=== PATIENT | male | born 1970 | race Caucasian/White ===

== ENCOUNTER 2017-01-26 12:36 | Inpatient (IN) ==
[2017-01-26] MEDS ORDERED: ACETAMINOPHEN 325 MG TABLET PO ONE (13:28)
[2017-01-26] MEDS ORDERED: 0.9 % SODIUM CHLORIDE 1,000 ML IV ONE ×4 (13:29→23:55)
--- NOTE | 2017-01-26 13:35 | Emergency Department Note ---
Skin/Abscess/FB HPI - General Chief complaint: Skin/Abscess/Foreign Body Stated complaint: infection L foot, L flank pain Time Seen by Provider: 01/26/17 13:28 Source: patient Mode of arrival: wheelchair Limitations: no limitations - History of Present Illness HPI Narrative: 38-year-old male presents with infection to left foot. He is diabetic. He states he has been dealing with an infection in this left foot for a long time and sees Dr. Khan for this. He states he was doing well but last night he tripped and fell and has started to have a lot more pain swelling and fever. He also feels like he tweaked his lower back. He also has been out of his medications for 10 days and feels as though his blood sugar is high. He feels dehydrated. He takes Lantus at night, metformin, amlodipine. He denies urinary frequency or urgency. He denies hematuria. - Related Data Home Medications Medication Instructions Recorded Confirmed amlodipine 5 mg-benazepril 20 mg 1 cap PO QDAY 08/18/16 11/02/16 capsule empagliflozin 10 mg tablet 10 mg PO QDAY 08/18/16 11/02/16 metformin 1,000 mg tablet 1,000 mg PO BID 08/18/16 11/02/16 amitriptyline 100 mg tablet 100 mg PO QHS 10/17/16 11/02/16 benazepril 20 mg tablet 20 mg PO QDAY 10/17/16 11/02/16 insulin glargine 100 unit/mL (3 62 unit SUB-Q QHS ml 10/17/16 11/02/16 mL) subcutaneous pen omeprazole magnesium 20 mg 20 mg PO QDAY tab 10/17/16 11/02/16 tablet,delayed release Previous Rx's Medication Instructions Recorded insulin glargine 100 unit/mL (3 62 unit SUB-Q QHS #9 ml 08/11/16 mL) subcutaneous pen cholecalciferol (vitamin D3) 2,000 2,000 unit PO QDAY #30 cap 10/18/16 unit capsule ferrous sulfate 325 mg (65 mg 325 mg PO TID #90 tab 10/18/16 iron) tablet citalopram 40 mg tablet 40 mg PO QDAY #30 tab 11/02/16 melatonin 5 mg tablet 5 mg PO HS PRN #30 tab 11/02/16 hydroxyzine pamoate 50 mg capsule 50 mg PO .nightly PRN #30 cap 11/14/16 Allergies Allergy/AdvReac Type Severity Reaction Status Date / Time No Known Drug Allergies Allergy Verified 11/02/16 10:54 Review of Systems All systems ED: reviewed and negative except as stated. 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 No drainage. Swelling of the foot. Redness. Very tender proximal to the great toe. Unable to move toes. KNee and hip are normal. - General Limitations: no limitations General appearance: alert, in no apparent distress - Head Head exam: atraumatic - Eye Eye exam: Present: normal appearance. Absent: conjunctival injection - ENT ENT exam: mucous membranes dry - Neck Neck exam: Present: normal inspection, full ROM. Absent: tenderness, lymphadenopathy - Chest Chest inspection: Present: normal inspection, symmetric chest wall rise - Respiratory Respiratory exam: Present: normal lung sounds bilaterally - Cardiovascular Cardiovascular exam: Present: tachycardia, normal heart sounds - Abdominal Exam Abdominal exam: Present: soft, normal bowel sounds. Absent: tenderness - Back Exam Back exam: Present: tenderness, muscle spasm, paraspinal tenderness (L5-S1), sciatic notch tenderness (R), sciatic notch tenderness (L). Absent: CVA tenderness (R), CVA tenderness (L) - Neurological Exam Neurological exam: Present: alert, oriented X3, CN II-XII intact - Psychiatric Psychiatric exam: Present: normal affect, normal mood - Skin Skin exam: Present: warm, dry Course Course Narrative: 324 BG on arrival ABGs showed DKA. He was started on DKA protocol. His vitals were always stable. He only complained of pain in the foot and dry mouth. He was admitted to the ICU by Rafa and Dr. Fletcher will be seeing him for his foot. These Drs were both consulted. Dr. Kebede was also consulted and agreed with plan Vital Signs Temperature 99.9 F H 01/26/17 12:37 Pulse Rate 105 H 01/26/17 12:37 Respiratory Rate 16 01/26/17 12:37 Blood Pressure 152/92 01/26/17 12:37 Pulse Oximetry (%) 98 01/26/17 12:37 Temperature 98.6 F 01/26/17 15:04 Pulse Rate 98 H 01/26/17 15:04 Respiratory Rate 16 01/26/17 12:37 Blood Pressure 153/93 01/26/17 15:01 Pulse Oximetry (%) 96 01/26/17 15:04 Skin/Abscess/Foreign Body - Lab Data Lab results reviewed: Yes I reviewed the patient's lab results. Result diagrams: 01/26/17 13:39 01/26/17 13:39 Lab Results 01/26/17 01/26/17 01/26/17 Range/Units 13:39 13:39 13:39 WBC 14.3 H (4.5-11.0) K/mcL RBC 4.85 (4.50-5.90) M/mcL Hgb 14.0 (13.5-16.5) g/dL Hct 41.8 (41.0-55.0) % MCV 86.3 (80.0-100.0) fL MCH 28.9 (26.0-34.0) pg MCHC 33.5 (31.0-36.0) g/dL RDW 15.9 H (11.5-14.5) % Plt Count 209 (140-440) K/mcL MPV 8.7 (7.4-10.4) fL Total Counted 100 Seg Neutrophils % 86 H (38-78) % Band Neutrophils % Not Reportable Lymphocytes % 5 L (15-49) % Monocytes % (Manual) 9 (1-12) % Platelet Estimate Normal (NORMAL) RBC Morphology Normal (NORMAL) VBG Lactic Acid 0.9 (0.5-2.2) mmol/L Sodium 128 L (133-145) mmol/L Potassium 5.3 H (3.3-5.1) mmol/L Chloride 89 L (96-108) mmol/L Carbon Dioxide 12 L (22-30) mmol/L Bicarbonate Anion Gap 27.0 H (8-16) BUN 22 H (6-20) mg/dl Creatinine 1.5 H (0.7-1.2) mg/dl GFR Calculation 54 Glucose 343 H (70-105) mg/dL Calcium 9.1 (8.6-10.4) mg/dl Total Bilirubin 0.4 (0.0-1.0) mg/dL AST 14 (0-37) U/l ALT 22 (0-40) U/l Alkaline Phosphatase 70 (39-117) U/L Total Protein 8.4 (5.9-8.4) gm/dL Albumin 3.9 (3.2-5.2) gm/dL Globulin 4.5 H (2.2-3.7) gm/dL Albumin/Globulin Ratio 0.9 L (1.0-2.3) Beta-Hydroxybutyrate (< 0.27) mmol/L Procalcitonin (<0.10) ng/mL Urine Color Urine Appearance Urine pH (5.0-9.0) Ur Specific Freeman (1.000-1.035) Urine Protein (NEG) mg/dL Urine Glucose (UA) (NEG) mg/dL Urine Ketones (NEG) mg/dL Urine Occult Blood (<0.03) mg/dL Urine Nitrate (NEG) Urine Bilirubin (NEG) mg/dL Urine Urobilinogen (NEG) mg/dL Ur Leukocyte Esterase (NEG) /uL Urine RBC (0-1) /hpf Urine WBC (0-4) /hpf Ur Squamous Epith Cells (0-4) /hpf Urine Bacteria (0) /hpf Urine Mucus (0) /hpf Ur Culture Indicated? 01/26/17 01/26/17 01/26/17 Range/Units 13:39 13:39 13:39 WBC (4.5-11.0) K/mcL RBC (4.50-5.90) M/mcL Hgb (13.5-16.5) g/dL Hct (41.0-55.0) % MCV (80.0-100.0) fL MCH (26.0-34.0) pg MCHC (31.0-36.0) g/dL RDW (11.5-14.5) % Plt Count (140-440) K/mcL MPV (7.4-10.4) fL Total Counted Seg Neutrophils % (38-78) % Band Neutrophils % Lymphocytes % (15-49) % Monocytes % (Manual) (1-12) % Platelet Estimate (NORMAL) RBC Morphology (NORMAL) VBG Lactic Acid (0.5-2.2) mmol/L Sodium (133-145) mmol/L Potassium (3.3-5.1) mmol/L Chloride (96-108) mmol/L Carbon Dioxide (22-30) mmol/L Bicarbonate TNP Anion Gap (8-16) BUN (6-20) mg/dl Creatinine (0.7-1.2) mg/dl GFR Calculation Glucose (70-105) mg/dL Calcium (8.6-10.4) mg/dl Total Bilirubin (0.0-1.0) mg/dL AST (0-37) U/l ALT (0-40) U/l Alkaline Phosphatase (39-117) U/L Total Protein (5.9-8.4) gm/dL Albumin (3.2-5.2) gm/dL Globulin (2.2-3.7) gm/dL Albumin/Globulin Ratio (1.0-2.3) Beta-Hydroxybutyrate 7.11 H (< 0.27) mmol/L Procalcitonin 0.79 (<0.10) ng/mL Urine Color Urine Appearance Urine pH (5.0-9.0) Ur Specific Freeman (1.000-1.035) Urine Protein (NEG) mg/dL Urine Glucose (UA) (NEG) mg/dL Urine Ketones (NEG) mg/dL Urine Occult Blood (<0.03) mg/dL Urine Nitrate (NEG) Urine Bilirubin (NEG) mg/dL Urine Urobilinogen (NEG) mg/dL Ur Leukocyte Esterase (NEG) /uL Urine RBC (0-1) /hpf Urine WBC (0-4) /hpf Ur Squamous Epith Cells (0-4) /hpf Urine Bacteria (0) /hpf Urine Mucus (0) /hpf Ur Culture Indicated? 01/26/17 Range/Units 15:03 WBC (4.5-11.0) K/mcL RBC (4.50-5.90) M/mcL Hgb (13.5-16.5) g/dL Hct (41.0-55.0) % MCV (80.0-100.0) fL MCH (26.0-34.0) pg MCHC (31.0-36.0) g/dL RDW (11.5-14.5) % Plt Count (140-440) K/mcL MPV (7.4-10.4) fL Total Counted Seg Neutrophils % (38-78) % Band Neutrophils % Lymphocytes % (15-49) % Monocytes % (Manual) (1-12) % Platelet Estimate (NORMAL) RBC Morphology (NORMAL) VBG Lactic Acid (0.5-2.2) mmol/L Sodium (133-145) mmol/L Potassium (3.3-5.1) mmol/L Chloride (96-108) mmol/L Carbon Dioxide (22-30) mmol/L Bicarbonate Anion Gap (8-16) BUN (6-20) mg/dl Creatinine (0.7-1.2) mg/dl GFR Calculation Glucose (70-105) mg/dL Calcium (8.6-10.4) mg/dl Total Bilirubin (0.0-1.0) mg/dL AST (0-37) U/l ALT (0-40) U/l Alkaline Phosphatase (39-117) U/L Total Protein (5.9-8.4) gm/dL Albumin (3.2-5.2) gm/dL Globulin (2.2-3.7) gm/dL Albumin/Globulin Ratio (1.0-2.3) Beta-Hydroxybutyrate (< 0.27) mmol/L Procalcitonin (<0.10) ng/mL Urine Color Yellow Urine Appearance Hazy Urine pH 5.0 (5.0-9.0) Ur Specific Freeman 1.026 (1.000-1.035) Urine Protein 100 A (NEG) mg/dL Urine Glucose (UA) >=500 A (NEG) mg/dL Urine Ketones 80 A (NEG) mg/dL Urine Occult Blood 0.2 A (<0.03) mg/dL Urine Nitrate Neg (NEG) Urine Bilirubin Neg (NEG) mg/dL Urine Urobilinogen Neg (NEG) mg/dL Ur Leukocyte Esterase Neg (NEG) /uL Urine RBC 1 (0-1) /hpf Urine WBC 2 (0-4) /hpf Ur Squamous Epith Cells < 1 (0-4) /hpf Urine Bacteria 0 (0) /hpf Urine Mucus Few (0) /hpf Ur Culture Indicated? No - Radiology Data Radiology results reviewed: Yes I reviewed the patient's radiology results. possible osteomyelitis 2nd metatarsal Disposition Clinical Impression: DKA (diabetic ketoacidoses) Disposition: Xfer As Inpt ([facility]) Condition: Fair Referrals: Viktor Cox DO [Primary Care Provider] -
[2017-01-26] MEDS: HYDROmorphone 2 MG/ML SYRINGE IV PRN ×4 (13:49→21:20)
[2017-01-26 14:18] LABS: Mean Cell Volume 86.3 fL (80.0-100.0); Mean Corpuscular HGB Conc 33.5 g/dL (31.0-36.0); Mean Corpuscular Hemoglobin 28.9 pg (26.0-34.0); Platelet Count 209 K/mcL (140-440); RBC 4.85 M/mcL (4.50-5.90); Red Cell Distribution Width 15.9 % (11.5-14.5)
--- NOTE | 2017-01-26 14:29 | XRay Report ---
CLINICAL INFORMATION: Diabetic. Nonhealing ulcer in the left foot. Ulcer apparently is near the base of the 1st digit TECHNIQUE: AP, oblique, lateral left foot COMPARISON: Previous examination dated 07/15/2013 FINDINGS: No soft tissue gas bubbles. No radiopaque foreign body. Abnormality of the distal left 2nd metatarsal. There is bone destruction which is a new finding since previous examination. Osteomyelitis is possible. No other focal areas of cortical destruction. No other focal abnormality. IMPRESSION: 1. Abnormality of the distal left 2nd metatarsal 2. Cortical destruction consistent with osteomyelitis. Interpreted and Authenticated by: Viktor Alarcon 01/26/17
[2017-01-26 14:46] LABS: ALT/SGPT 22 U/l (0-40); Albumin 3.9 gm/dL (3.2-5.2); Albumin/Globulin Ratio 0.9 (1.0-2.3); Alkaline Phosphatase 70 U/L (39-117); Blood Urea Nitrogen 22 mg/dl (6-20)
[2017-01-26 14:53] LABS: Lymphocytes % 5 % (15-49); Monocytes % (Manual) 9 % (1-12); Platelet Estimate NORMAL (NORMAL); RBC Morphology NORMAL (NORMAL); Segmented Neutrophils % 86 % (38-78)
[2017-01-26] MEDS ORDERED: VANCOMYCIN 1,000 MG in 0.9 % SODIUM CHLORIDE 250 ML IV ONE (15:12)
[2017-01-26] MEDS ORDERED: PIPERACILLIN SODIUM/TAZOBACTAM 3.375 GM in DEXTROSE 5% IN WATER 50 ML IV ONE (15:18)
[2017-01-26] MEDS ORDERED: VANCOMYCIN 1,500 MG in 0.9 % SODIUM CHLORIDE 500 ML IV ONE (15:19)
[2017-01-26 15:27] LABS: Appearance,Urine HAZY; Bacteria,Urine 0 /hpf (0); Bilirubin,Urine NEG (NEG); Color,Urine YELLOW; Glucose,Urine (UA) >=500 mg/dL (NEG); Leukocyte Esterase,Urine NEG /uL (NEG); Mucus,Urine FEW /hpf (0); Nitrate,Urine NEG (NEG); Protein,Urine 100 mg/dL (NEG); Specific Gravity,Urine 1.026 (1.000-1.035); Urine Blood 0.2 mg/dL (<0.03); Urine RBC 1 /hpf (0-1); Urine Squamous Epithelial Cell < 1 /hpf (0-4); Urine WBC 2 /hpf (0-4); Urobilinogen,Urine NEG (NEG)
[2017-01-26] MEDS ORDERED: PIPERACILLIN SODIUM/TAZOBACTAM 3.375 GM VIAL IV ONE (15:31)
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
[2017-01-26] MEDS ORDERED: INSULIN REGULAR, HUMAN 1 UNIT/0.01 ML UNIT IV ONE (15:55)
--- NOTE | 2017-01-26 15:56 | XRay Report ---
CLINICAL INFORMATION: Leukocytosis TECHNIQUE: AP portable semiupright chest x-ray COMPARISON: None. FINDINGS: Lungs are negative. No parenchymal infiltrate or mass Heart size is within normal limits. No pulmonary edema. No pulmonary congestion. No pleural fluid. Kandis and mediastinum are negative. IMPRESSION: Negative AP portable chest x-ray Interpreted and Authenticated by: Viktor Alarcon 01/26/17
[2017-01-26] MEDS ORDERED: INSULIN REGULAR, HUMAN 50 UNIT in 0.9 % SODIUM CHLORIDE 99.5 ML IV SCH (16:00)
[2017-01-26 16:21] LABS: Beta Hydroxybutyrate 7.11 mmol/L (< 0.27)
--- NOTE | 2017-01-26 17:44 | Internal Med History&Physical ---
Medical - H&P: HPI Patient information: Note initiated : 01/26/17 at 5:40 pm Service Date, if different from initiated Date: [] Patient: Gregory Garcia 46 y/o M admitted on 01/26/17 for infection L foot, L flank pain. Chief Complaint: [] History of present illness: Mr. Garcia is a 46 year old male with h/o DM and other medical issues, chr right toe wound, presented to the ER with complaints of pain in the right foot for 2 days. The patient notes he has had a chr wound from diabetes on the right toe, this has been a non healing wound and he follows with Dr Pan madrigal tungsten tender who has been working with him. The patient fell and injured his right side body and injured the right toe on january 24. After this the patient noted increased redness and swelling of the right toe, the patient notes that the redness start ed to spread, and the pain worsened to a point where he could not lay foot on the ground. Pain throbbing in nature, worse with activity better with rest, Non radiating. he therefore presented to the ER . In the ER the patient was noted to have elevated wbc, high k, low sodium elevate glucose > 300, high gap, low bicarb. Patient had elevaetd betahydroxybutyrate, elevated anion gap, and ph of 7.2. He was admitted to the hospital with diagnosis of acute DKA and Acute osteomyelitis. The patient notes that around 11 of january he has not taken any of his medications including insulin, as his insurance ran out. Review of systems: CONSTITUTIONAL: No weight loss,present fever and chills, HEENT: Eyes: No visual loss, blurred vision, double vision or yellow sclerae. Ears, Nose, Throat: No hearing loss, sneezing, congestion, runny nose or sore throat. SKIN: No rash or itching. CARDIOVASCULAR: No chest pain, chest pressure or chest discomfort. No palpitations or edema. RESPIRATORY: No shortness of breath, cough or sputum. GASTROINTESTINAL: No nausea, vomiting or diarrhea or constipation. No abdominal pain or blood in stools No Sil. left flank pain on movement due to trauma. GENITOURINARY: Denies Burning on urination. Blood in urine, or foul smelling urine NEUROLOGICAL: No headache, dizziness, syncope, paralysis, tremors, numbness or tingling in the extremities. No change in bowel or bladder control. MUSCULOSKELETAL: No muscle, back pain, joint pain or stiffness. HEMATOLOGIC: No bleeding or bruising. No enlarged nodes PSYCHIATRIC: No depression or anxiety. ENDOCRINOLOGIC: No reports of sweating, cold or heat intolerance. No polyuria or polydipsia. ALLERGIES: No hives, eczema or rhinitis. Skin: No rash, no jaundice, cyanosis or pallor. 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) History of tobacco use (Chronic) Sleep apnea (Chronic) Peripheral neuropathy (Chronic) Fatigue (Chronic) Arthritis (Chronic) Insomnia (Chronic) Hypertension, essential (Chronic) DMII (diabetes mellitus, type 2) (Chronic) Depression (Chronic) Daytime sleepiness (Chronic) Acid reflux (Chronic) Surgical history: Past Surgical History (Last Updated 08/18/16 @ 13:19 by Bailey Fuller) H/O oral surgery (Chronic ~1989) Pertinent family history: Family History Mother Primary cancer of bone marrow Hypertension, essential Grandfather Diabetes Medical - H&P: Meds Home Medications Medication Instructions Recorded Confirmed Type insulin glargine 100 unit/mL (3 62 unit SUB-Q QHS #9 ml 08/11/16 11/02/16 Rx mL) subcutaneous pen amlodipine 5 mg-benazepril 20 mg 1 cap PO QDAY 08/18/16 11/02/16 History capsule empagliflozin 10 mg tablet 10 mg PO QDAY 08/18/16 11/02/16 History metformin 1,000 mg tablet 1,000 mg PO BID 08/18/16 11/02/16 History amitriptyline 100 mg tablet 100 mg PO QHS 10/17/16 11/02/16 History benazepril 20 mg tablet 20 mg PO QDAY 10/17/16 11/02/16 History insulin glargine 100 unit/mL (3 62 unit SUB-Q QHS ml 10/17/16 11/02/16 History mL) subcutaneous pen omeprazole magnesium 20 mg 20 mg PO QDAY tab 10/17/16 11/02/16 History tablet,delayed release cholecalciferol (vitamin D3) 2,000 2,000 unit PO QDAY #30 cap 10/18/16 11/02/16 Rx unit capsule ferrous sulfate 325 mg (65 mg 325 mg PO TID #90 tab 10/18/16 11/02/16 Rx iron) tablet citalopram 40 mg tablet 40 mg PO QDAY #30 tab 11/02/16 11/02/16 Rx melatonin 5 mg tablet 5 mg PO HS PRN #30 tab 11/02/16 11/02/16 Rx hydroxyzine pamoate 50 mg capsule 50 mg PO .nightly PRN #30 cap 11/14/16 Rx Allergies Allergy/AdvReac Type Severity Reaction Status Date / Time No Known Drug Allergies Allergy Verified 11/02/16 10:54 Medical - H&P: Exam - Constitutional Vitals: Temp Pulse Resp BP Pulse Ox 98.6 F 98 H 16 153/93 96 01/26/17 16:35 01/26/17 16:35 01/26/17 16:35 01/26/17 16:35 01/26/17 16:35 Exam: GENERAL: The patient is a well-developed, well-nourished in no apparent distress. Is alert and oriented x3. body has some tatoos. VITAL SIGNS: Reviewed and as noted elsewhere. HEENT: Head is normocephalic and atraumatic. Extraocular muscles are intact. Pupils are equal, round, and reactive to light. Nares appeared normal. Mouth appears any without lesions. Mucous membranes are moist. NECK: Normal to inspection, Supple, No lymphadenopathy or thyromegaly. LUNGS: Air entry equal on both sides, no wheezing, crackles or rhonchi noted. No accessory muscles of respiration HEART: Regular rate and rhythm normal, S1 and S2 heard, no Gallop, S3 or Rub Noted, No Gross murmur heard. ABDOMEN: Soft, nontender, and nondistended. Positive bowel sounds. No hepatosplenomegaly was noted. EXTREMITIES: No cyanosis, clubbing, rash, lesions or edema. Right foot noted ulcer on the base of the 1st toe, ertyema extnding upto the ankle and mid foot on the plantar aspect. tender to touch, no obvious fluctuation NEUROLOGIC: Cranial nerves II through XII are grossly intact. Motor and Sensory System Grossly Intact PSYCHIATRIC: Normal affect, Normal Mood. Appropriate Behavior. SKIN: No jaundice, No rash noted. Medical - H&P: Reslt - Labs CBC & Chem 7: 01/26/17 13:39 01/26/17 13:39 - ABG Interpretation -: ABG interpreted by me Medical - H&P: A/P - Narrative A/P Narrative: A/P Acute diabetic ketoacidosis: Treat as per protocol,k IV bolus x 2 given in ER, IV insulin given, will start on insulin drip, target glucose around 200, IV saline at 200ml per hour, switch to D5NS if patient glucose drops. monitor bmp q 4 hrs, mg, phos q 4 hrs, vbg to check for resolution of DKA NPO for now. Acute osteomyelitis: Noted on X ray, appreciate podiatry input, will need mri, but will be done after patient is out of DKA, likely in AM. IV vancomycin and zosyn for now. DM: management with iv insulin for now Depression Resume citalopram diabetic Neuropathy: on amitriptyline , continue Hold bp meds for now Acute kidney injury: Craetr 1.5. IV flujids Hyponatremia: pseudohyponatremia, and some component of dehydration, should improve with correction of u nderlying factor. Hyperkalemia: K was 5.3, should self correct, will have to worry about hypokalemia once treatment institute. DVT hep sq Diet NPO Full code Medical - H&P: Qual - VTE Deep Vein Thrombosis/Pulmonary Embolism Present on Admission: No Social History - Social History marital status: single - Tobacco smoking status: Former smoker - Alcohol alcohol intake frequency: a few times a week - Substance use substance use type: marijuana, former substance user
[2017-01-26] MEDS ORDERED: NALOXONE HCL 0.4 MG/ML VIAL IV PRN (17:50)
[2017-01-26] MEDS ORDERED: VANCOMYCIN PER PHARMACY IV SCH (17:50)
[2017-01-26] MEDS ORDERED: DEXTROSE 50% 50 ML SYRINGE IV PRN (17:50)
[2017-01-26] MEDS ORDERED: ONDANSETRON 4 MG/2 ML VIAL IV PRN (17:50)
[2017-01-26] MEDS ORDERED: HYDROmorphone 2 MG/ML SYRINGE IV PRN (17:50)
[2017-01-26] MEDS ORDERED: IPRATROPIUM/ALBUTEROL 3 ML AMPUL.NEB NEB PRN (17:50)
[2017-01-26] MEDS: 0.9 % SODIUM CHLORIDE 1,000 ML IV SCH ×2 (17:59→23:05)
[2017-01-26] MEDS: INSULIN REGULAR, HUMAN 50 UNIT in 0.9 % SODIUM CHLORIDE 100 ML IV SCH (18:17)
[2017-01-26 18:34] LABS: ABG Methemoglobin 0.3 % (0.4-1.5); VBG HCO3 11.4 mmol/L (24.0-28.0); VBG Oxygen Saturation 85.2 % (40.0-70.0); VBG PH 7.21 U (7.32-7.42); VBG PO2 66 mmHg (25-40); VBG Total CO2 12.3 mmol/L (25.0-29.0)
[2017-01-26 18:57] LABS: ALT/SGPT 18 U/l (0-40); Albumin 3.1 gm/dL (3.2-5.2); Albumin/Globulin Ratio 0.8 (1.0-2.3); Alkaline Phosphatase 56 U/L (39-117); Bilirubin,Direct < 0.2 mg/dL (0.0-0.3); Blood Urea Nitrogen 20 mg/dl (6-20); Gamma Glutamyl Transpeptidase 42 U/L (8-61); Magnesium 2.3 mg/dL (1.6-2.5); Uric Acid 9.6 mg/dL (2.5-8.0)
[2017-01-26] MEDS ORDERED: POTASSIUM PHOSPHATE 20 MEQ in DEXTROSE 5% IN WATER 250 ML IV ONE (19:01)
[2017-01-26] MEDS ORDERED: POTASSIUM PHOSPHATE 66 MEQ/15 ML VIAL IV ONE (19:38)
[2017-01-26] MEDS: FAMOTIDINE/PF 20 MG/2 ML VIAL IV SCH (21:01)
[2017-01-26] MEDS: HEPARIN 5,000 UNIT/ML VIAL SQ SCH (21:01)
[2017-01-26] MEDS: AMITRIPTYLINE 25 MG TABLET PO SCH (21:01)
[2017-01-26] MEDS: 0.9 % SODIUM CHLORIDE 10 ML SYRINGE IV SCH (21:03)
[2017-01-26] MEDS: PIPERACILLIN SODIUM/TAZOBACTAM 3.375 GM in DEXTROSE 5% IN WATER 50 ML IV SCH (22:01)
[2017-01-26 22:15] LABS: ABG Methemoglobin 0.3 % (0.4-1.5); VBG HCO3 14.6 mmol/L (24.0-28.0); VBG Oxygen Saturation 72.6 % (40.0-70.0); VBG PCO2 39.7 mmHg (41.0-51.0); VBG PH 7.18 U (7.32-7.42); VBG PO2 45 mmHg (25-40); VBG Total CO2 15.8 mmol/L (25.0-29.0)
[2017-01-26 22:20] LABS: Appearance,Urine HAZY; Bacteria,Urine 0 /hpf (0); Bilirubin,Urine NEG (NEG); Color,Urine STRAW; Glucose,Urine (UA) >=500 mg/dL (NEG); Leukocyte Esterase,Urine NEG /uL (NEG); Mucus,Urine FEW /hpf (0); Nitrate,Urine NEG (NEG); Protein,Urine 100 mg/dL (NEG); Specific Gravity,Urine 1.025 (1.000-1.035); Urine Blood 0.03 mg/dL (<0.03); Urine Hyaline Cast 7 /lpf (0-2); Urine RBC 1 /hpf (0-1); Urine Squamous Epithelial Cell < 1 /hpf (0-4); Urine WBC 2 /hpf (0-4); Urobilinogen,Urine NEG (NEG)
[2017-01-26 23:53] LABS: ALT/SGPT 20 U/l (0-40); Albumin 3.5 gm/dL (3.2-5.2); Albumin/Globulin Ratio 0.9 (1.0-2.3); Alkaline Phosphatase 56 U/L (39-117); Bilirubin,Direct < 0.2 mg/dL (0.0-0.3); Blood Urea Nitrogen 17 mg/dl (6-20); Gamma Glutamyl Transpeptidase 47 U/L (8-61); Magnesium 2.3 mg/dL (1.6-2.5); Uric Acid 9.5 mg/dL (2.5-8.0)
[2017-01-26] MEDS ORDERED: 0.9 % SODIUM CHLORIDE 1,000 ML IV SCH ×2 (23:56→23:58)
[2017-01-27] MEDS ORDERED: 0.9 % SODIUM CHLORIDE 1,000 ML IV ONE ×3 (00:28→07:12)
[2017-01-27] MEDS: DEXTROSE 5%-1/2NS 1,000 ML IV SCH ×5 (00:29→21:19)
[2017-01-27 00:46] LABS: ABG Methemoglobin 0.3 % (0.4-1.5); VBG HCO3 13.6 mmol/L (24.0-28.0); VBG Oxygen Saturation 95.6 % (40.0-70.0); VBG PCO2 30.1 mmHg (41.0-51.0); VBG PH 7.27 U (7.32-7.42); VBG PO2 145 mmHg (25-40); VBG Total CO2 14.5 mmol/L (25.0-29.0)
[2017-01-27 01:10] LABS: Blood Urea Nitrogen 16 mg/dl (6-20); Magnesium 2.2 mg/dL (1.6-2.5)
[2017-01-27] MEDS: VANCOMYCIN 1,500 MG in 0.9 % SODIUM CHLORIDE 500 ML IV SCH ×2 (03:46→16:00)
[2017-01-27] MEDS: 0.9 % SODIUM CHLORIDE 10 ML SYRINGE IV SCH ×3 (05:29→20:42)
[2017-01-27] MEDS: PIPERACILLIN SODIUM/TAZOBACTAM 3.375 GM in DEXTROSE 5% IN WATER 50 ML IV SCH ×3 (05:52→22:01)
[2017-01-27 06:05] LABS: ABG Methemoglobin 0.3 % (0.4-1.5); VBG Base Excess -12.4 (-2.0-2.0); VBG HCO3 13.8 mmol/L (24.0-28.0); VBG Oxygen Saturation 77.5 % (40.0-70.0); VBG PCO2 32.8 mmHg (41.0-51.0); VBG PH 7.24 U (7.32-7.42); VBG PO2 46 mmHg (25-40); VBG Total CO2 14.8 mmol/L (25.0-29.0)
[2017-01-27 06:09] LABS: Basophils # (Auto) 0 K/mcL (0.0-0.3); Basophils % (Auto) 0 % (0.0-2.0); Eosinophils # (Auto) 0 K/mcL (0.0-0.7); Eosinophils % (Auto) 0.1 % (0.0-7.0); Granulocytes % (Auto) 89.5 % (38.0-78.0); Lymphocytes # (Auto) 0.8 K/mcL (1.5-4.8); Lymphocytes % (Auto) 6.2 % (15.5-49.0); Mean Cell Volume 86.4 fL (80.0-100.0); Mean Corpuscular HGB Conc 33.9 g/dL (31.0-36.0); Mean Corpuscular Hemoglobin 29.3 pg (26.0-34.0); Monocytes # (Auto) 0.5 K/mcL (0.1-0.9); Monocytes % (Auto) 4.2 % (1.0-12.0); Platelet Count 185 K/mcL (140-440); RBC 4.45 M/mcL (4.50-5.90); Red Cell Distribution Width 16.4 % (11.5-14.5)
[2017-01-27 06:42] LABS: Blood Urea Nitrogen 13 mg/dl (6-20); Magnesium 2.1 mg/dL (1.6-2.5)
[2017-01-27] MEDS ORDERED: POTASSIUM PHOSPHATE 40 MEQ in DEXTROSE 5% IN WATER 500 ML IV ONE ×2 (08:00→17:14)
[2017-01-27] MEDS: HYDROmorphone 2 MG/ML SYRINGE IV PRN ×2 (08:53→14:34)
[2017-01-27] MEDS: CITALOPRAM 20 MG TABLET PO SCH (08:58)
[2017-01-27] MEDS: HEPARIN 5,000 UNIT/ML VIAL SQ SCH ×2 (08:59→20:41)
[2017-01-27] MEDS: ACETAMINOPHEN 325 MG TABLET PO PRN ×2 (08:59→20:41)
[2017-01-27] MEDS: FAMOTIDINE/PF 20 MG/2 ML VIAL IV SCH ×2 (09:00→20:41)
[2017-01-27 09:02] LABS: ABG Methemoglobin 0.3 % (0.4-1.5); VBG Base Excess -15.1 (-2.0-2.0); VBG HCO3 10.9 mmol/L (24.0-28.0); VBG Oxygen Saturation 77.2 % (40.0-70.0); VBG PCO2 26.6 mmHg (41.0-51.0); VBG PH 7.23 U (7.32-7.42); VBG PO2 46 mmHg (25-40); VBG Total CO2 11.7 mmol/L (25.0-29.0)
--- NOTE | 2017-01-27 09:16 | Internal Med Progress Note ---
Medical - PN: Subj Patient information: Note initiated : 01/27/17 at 9:16 am Service Date, if different from initiated Date: [] Patient: Gregory Garcia 46 y/o M admitted on 01/26/17 for infection L foot, L flank pain. Chief Complaint: [] Interval history: Mr. Garcia is a 46 year old male with h/o DM and other medical issues, chr right toe wound, presented to the ER with complaints of pain in the right foot for 2 days. The patient notes he has had a chr wound from diabetes on the right toe, this has been a non healing wound and he follows with Dr Perla his audience coordinator who has been working with him. The patient fell and injured his right side body and injured the right toe on january 24. After this the patient noted increased redness and swelling of the right toe, the patient notes that the redness start ed to spread, and the pain worsened to a point where he could not lay foot on the ground. Pain throbbing in nature, worse with activity better with rest, Non radiating. he therefore presented to the ER . In the ER the patient was noted to have elevated wbc, high k, low sodium elevate glucose > 300, high gap, low bicarb. Patient had elevaetd betahydroxybutyrate, elevated anion gap, and ph of 7.2. He was admitted to the hospital with diagnosis of acute DKA and Acute osteomyelitis. The patient notes that around 11 of january he has not taken any of his medications including insulin, as his insurance ran out. 01/27: Pt seen examined, no acute overnight events, doing well, feels very thirsty and wants to drink something , partched. patient albs reviwed, still in DKA needing IV fluids and iv insulin. still has some chills and fever. Pertinent ROS: Denies headache, dizziness Denies chest pain, palpitations Denies cough or shortness of breath Denies abdominal pain, nausea or vomiting. - Constitutional Vitals: Vital Signs Temp Pulse Resp BP Pulse Ox 100.2 F H 88 16 151/90 100 01/27/17 08:00 01/27/17 08:00 01/27/17 08:00 01/27/17 08:00 01/27/17 08:00 Period Temp Pulse Resp BP Sys/Dinh Pulse Ox Last 24 Hr 98.3 F-100.2 F 83-98 16-16 116-169/76-128 86-100 Intake and Output 01/26/17 01/27/17 01/27/17 21:59 05:59 13:59 Intake Total 1702 / 2752 5084 / 5084 1552 / 1552 Output Total 420 / 420 2500 / 2500 500 / 500 Balance 1282 / 2332 2584 / 2584 1052 / 1052 Weight 197 lb 8 oz Intake & Output: Intake & Output 01/26/17 01/27/17 01/27/17 21:59 05:59 13:59 Intake Total 1702 / 2752 5084 / 5084 1552 / 1552 Output Total 420 / 420 2500 / 2500 500 / 500 Balance 1282 / 2332 2584 / 2584 1052 / 1052 Weight 197 lb 8 oz Intake: IV 1502 / 1502 5084 / 5084 1552 / 1552 Sodium Chloride 0.9% 1, 4000 / 4000 1000 / 1000 000 ml @ Wide Open IV [facility] Rx#:[id number] Dextrose 5%-1/2Ns IV 1000 / 1000 Solution 1,000 ml @ 250 mls/hr IV .Q4H [facility] Rx#: [id number] HumuLIN R 50 UNIT In 2 / 2 34 / 34 2 / 2 Sodium Chloride 0.9% 100 ml @ 1 UNIT/HR 2.01 mls/ hr IV Q24H [facility] Rx#: [id number] Zosyn 3.375 gm In 50 / 50 50 / 50 Dextrose 5% in Water 50 ml @ 100 mls/hr IV Q8H [facility] Rx#:[id number] Vancomycin 1,500 mg In 500 / 500 500 / 500 Sodium Chloride 0.9% 500 ml @ 333.3 mls/hr IV Q12H [facility] Rx#:[id number] Oral 200 / 200 Output: Void Amount 420 / 420 2500 / 2500 500 / 500 Exam: Constitutional; Afebrile, cooperative, alert, not in distress. Dry mouth. Eyes- No icterus, , No periorbital swelling Ears- Ext ear normal, hearing normal to conversation. Neck- Midline trachea, supple Respiratory system: Air Entry equal on both sides, No crackles or wheezing, no rhonchi. CVS- Rate rhythm regular, S1,S2 heard, no gallop, no rub. Abdomen- Soft nontender abdomen, no organomegaly, no tenderness, no guarding or rigidity, METAL CANS SUPERVISOR- AOOx3, moving all extremities, no gross focal deficit noted. Medical - PN: Obj Da - Labs CBC & Chem 7: 01/27/17 05:19 01/27/17 05:19 Labs: Abnormal Lab Results 01/27/17 01/27/17 01/27/17 08:30 05:19 05:19 WBC 12.1 H RBC 4.45 L Hgb 13.0 L Hct 38.5 L RDW 16.4 H Gran % 89.5 H Lymph % (Auto) 6.2 L Gran # 10.8 H Lymph # (Auto) 0.8 L ABG Methemoglobin 0.3 L VBG pH 7.23 L VBG pCO2 26.6 L VBG pO2 46 H VBG HCO3 10.9 L* VBG Total CO2 11.7 L VBG O2 Saturation 77.2 H VBG Base Excess -15.1 L Carboxyhemoglobin 2.9 H Total Hemoglobin 11.6 L Sodium Carbon Dioxide Anion Gap Creatinine Glucose Uric Acid Calcium Phosphorus Albumin Globulin Albumin/Globulin Ratio Beta-Hydroxybutyrate 3.89 H Urine Protein Urine Glucose (UA) Urine Ketones Urine Occult Blood Hyaline Casts 01/27/17 01/27/17 01/27/17 05:19 05:19 00:10 WBC RBC Hgb Hct RDW Gran % Lymph % (Auto) Gran # Lymph # (Auto) ABG Methemoglobin 0.3 L 0.3 L VBG pH 7.24 L 7.27 L VBG pCO2 32.8 L 30.1 L VBG pO2 46 H 145 H VBG HCO3 13.8 L 13.6 L VBG Total CO2 14.8 L 14.5 L VBG O2 Saturation 77.5 H 95.6 H VBG Base Excess -12.4 L -12.0 L Carboxyhemoglobin 3.7 H 2.9 H Total Hemoglobin 12.8 L 11.8 L Sodium Carbon Dioxide 13 L Anion Gap 22.0 H Creatinine Glucose 199 H Uric Acid Calcium 8.0 L Phosphorus 1.1 L Albumin Globulin Albumin/Globulin Ratio Beta-Hydroxybutyrate Urine Protein Urine Glucose (UA) Urine Ketones Urine Occult Blood Hyaline Casts 01/27/17 01/26/17 01/26/17 00:10 21:50 21:50 WBC RBC Hgb Hct RDW Gran % Lymph % (Auto) Gran # Lymph # (Auto) ABG Methemoglobin 0.3 L VBG pH 7.18 L* VBG pCO2 39.7 L VBG pO2 45 H VBG HCO3 14.6 L VBG Total CO2 15.8 L VBG O2 Saturation 72.6 H VBG Base Excess -13.0 L Carboxyhemoglobin 3.7 H Total Hemoglobin 12.7 L Sodium 131 L 132 L Carbon Dioxide 13 L 11 L Anion Gap 21.0 H 25.0 H Creatinine Glucose 220 H 262 H Uric Acid 9.5 H Calcium 7.7 L 8.1 L Phosphorus 1.9 L Albumin Globulin 3.9 H Albumin/Globulin Ratio 0.9 L Beta-Hydroxybutyrate Urine Protein Urine Glucose (UA) Urine Ketones Urine Occult Blood Hyaline Casts 01/26/17 01/26/17 01/26/17 21:07 18:08 18:08 WBC RBC Hgb Hct RDW Gran % Lymph % (Auto) Gran # Lymph # (Auto) ABG Methemoglobin 0.3 L VBG pH 7.21 L VBG pCO2 29.0 L VBG pO2 66 H VBG HCO3 11.4 L VBG Total CO2 12.3 L VBG O2 Saturation 85.2 H VBG Base Excess -15.0 L Carboxyhemoglobin 3.5 H Total Hemoglobin 11.7 L Sodium 131 L Carbon Dioxide 12 L Anion Gap 23.0 H Creatinine 1.4 H Glucose 274 H Uric Acid 9.6 H Calcium 7.9 L Phosphorus 2.0 L Albumin 3.1 L Globulin 3.8 H Albumin/Globulin Ratio 0.8 L Beta-Hydroxybutyrate Urine Protein 100 A Urine Glucose (UA) >=500 A Urine Ketones 80 A Urine Occult Blood 0.03 A Hyaline Casts 7 H Meds: Medications Acetaminophen (Tylenol) 650 mg PO Q4-6HP PRN PRN Reason: PAIN/FEVER > 101 Last Admin: 01/27/17 08:59 Dose: 650 mg Albuterol/Ipratropium (Duoneb) 3 ml NEB Q4HRT PRN PRN Reason: Shortness Of Breath Or Wheezing Amitriptyline HCl (Elavil) 100 mg PO HS [facility] Last Admin: 01/26/17 21:01 Dose: 100 mg Citalopram Hydrobromide (Celexa) 40 mg PO DAILY [facility] Last Admin: 01/27/17 08:58 Dose: 40 mg Dextrose (Dextrose 50%) 50 ml IV ONCE PRN PRN Reason: ase pe protocol. Diagnostic Test (Pha) (Accu-Chek) 1 each FS Q1 [facility] Last Admin: 01/27/17 08:50 Dose: 1 each Famotidine (Pepcid) 20 mg IV Q12 [facility] Last Admin: 01/27/17 09:00 Dose: 20 mg Heparin Sodium (Porcine) (Heparin) 5,000 unit SQ Q12 [facility] Last Admin: 01/27/17 08:59 Dose: 5,000 unit Hydromorphone HCl (Dilaudid) 0.5 mg IV Q2HP PRN PRN Reason: Pain Last Admin: 01/27/17 08:53 Dose: 0.5 mg Insulin Human Regular 50 unit/ (Sodium Chloride) 100.5 mls @ 2.01 mls/hr IV Q24H [facility]; 1 UNIT/HR PRN Reason: Protocol Last Titration: 01/27/17 06:01 Dose: 1 unit/hr, 2.01 mls/hr Piperacillin Sod/Tazobactam (Sod 3.375 gm/ Dextrose) 50 mls @ 100 mls/hr IV Q8H [facility] Last Infusion: 01/27/17 06:55 Dose: Infused Vancomycin HCl 1,500 mg/ (Sodium Chloride) 500 mls @ 333.3 mls/hr IV Q12H [facility] Last Infusion: 01/27/17 06:00 Dose: Infused Dextrose/Sodium Chloride (Dextrose 5%-1/2ns Iv Solution) 1,000 mls @ 250 mls/ hr IV .Q4H [facility] Last Admin: 01/27/17 04:35 Dose: 250 mls/hr Potassium Phosphate 40 meq/ (Dextrose) 509.0909 mls @ 127.273 mls/hr IV ONCE ONE Stop: 01/27/17 11:59 Naloxone HCl (Narcan) 0.1 mg IV Q2MIN PRN PRN Reason: Opiate Reversal Ondansetron HCl (Zofran) 4 mg IV Q4-6HP PRN PRN Reason: Nausea And Vomiting Sodium Chloride (Saline Flush) 10 ml IV Q8 [facility] Last Admin: 01/27/17 05:29 Dose: Not Given Vancomycin HCl (Vancomycin Per Pharmacy) 1 order IV UD [facility] - ABG Interpretation ABG results: 01/26/17 01/26/17 01/27/17 18:08 21:50 00:10 ABG Methemoglobin 0.3 L 0.3 L 0.3 L VBG pH 7.21 L 7.18 L* 7.27 L VBG pCO2 29.0 L 39.7 L 30.1 L VBG pO2 66 H 45 H 145 H VBG HCO3 11.4 L 14.6 L 13.6 L VBG Total CO2 12.3 L 15.8 L 14.5 L VBG O2 Saturation 85.2 H 72.6 H 95.6 H VBG Base Excess -15.0 L -13.0 L -12.0 L 01/27/17 01/27/17 05:19 08:30 ABG Methemoglobin 0.3 L 0.3 L VBG pH 7.24 L 7.23 L VBG pCO2 32.8 L 26.6 L VBG pO2 46 H 46 H VBG HCO3 13.8 L 10.9 L* VBG Total CO2 14.8 L 11.7 L VBG O2 Saturation 77.5 H 77.2 H VBG Base Excess -12.4 L -15.1 L Interpretation: metabolic acidosis Medical - PN: A/P - Time Spent With Patient Total time spent is greater than 50% in coordination of care (as documented) at patient's floor/unit and/or counseling patient: - Narrative A/P Narrative: A/P Acute diabetic ketoacidosis: continue aggressive fluid resuscitation, IV insuiln and d5ns to maintain glucose around 200, Still has anion gap, hydroxybutyrate is still elevated but improved since admission. Total fluids so far is 9388 ml , patient has good urine output, no sob, no crackles on exam. no increased oxygen needs so far. HAGMA : due to dka HYpokalemia: Monitor for now, K has been within normal limits. Hypophospatemia. : phos 1.1 this AM, replace IV. Acute osteomyelitis: Noted on X ray, appreciate podiatry input, will need mri, but will be done after patient is out of DK. continue with IV vancomycin and zosyn for now. DM: management with iv insulin for now Depression Resume citalopram diabetic Neuropathy: on amitriptyline , continue Hold bp meds for now Acute kidney injury: Creat 1.2, improved with fluids. Hyponatremia: resolved. DVT hep sq Diet NPO ok for ice chips and sips of water. Full code Medical - PN: Qual - VTE Deep Vein Thrombosis/Pulmonary Embolism Present on Admission: No
[2017-01-27 09:34] LABS: Blood Urea Nitrogen 11 mg/dl (6-20)
--- NOTE | 2017-01-27 09:41 | Orthopedic Progress Note ---
Subjective Patient information: Note initiated : 01/27/17 at 9:39 am Service Date, if different from initiated Date: [] Patient: Gregory Garcia 46 y/o M admitted on 01/26/17 for infection L foot, L flank pain. Chief Complaint: [left foot pain] Principal diagnosis: left foot wound Interval history: patient continues to have left foot pain. It is very painful to touch. He is had no fever chills nausea vomiting last 24 hours. He had difficulty sleeping last night. Pertinent ROS: no wheezing coughing from his lungs. No chest pain. Some flank pain. Pain in his lower back. Pain on the left lower extremity. Pain left foot. Objective Vital signs: Vital Signs Temp Pulse Pulse Resp BP BP Pulse Ox 01/27/17 08:00 100.2 F H 95 H 88 16 151/90 100 01/27/17 07:00 116/95 01/27/17 06:00 162/84 01/27/17 05:01 152/86 01/27/17 04:00 142/87 01/27/17 03:00 156/92 01/27/17 02:00 85 165/88 95 01/27/17 01:00 150/79 95 01/27/17 00:00 149/78 01/26/17 23:01 157/91 01/26/17 22:34 159/92 01/26/17 22:29 159/92 01/26/17 21:30 169/105 01/26/17 21:25 167/108 01/26/17 21:08 98 H 168/114 99 01/26/17 21:01 90 161/128 100 01/26/17 20:07 87 86 L 01/26/17 20:01 98.3 F 83 139/84 93 01/26/17 20:00 98.3 F 01/26/17 19:10 90 136/78 93 01/26/17 18:39 90 99 01/26/17 18:03 84 119/76 100 01/26/17 17:01 87 152/99 100 01/26/17 16:47 169/99 01/26/17 16:43 154/89 01/26/17 16:35 98.6 F 98 H 16 153/93 96 Intake and Output 01/26/17 01/27/17 01/27/17 21:59 05:59 13:59 Intake Total 1702 / 2752 5084 / 5084 2145 / 2145 Output Total 420 / 420 2500 / 2500 500 / 500 Balance 1282 / 2332 2584 / 2584 1645 / 1645 Intake: IV 1502 / 1502 5084 / 5084 2145 / 2145 Sodium Chloride 0.9% 1, 4000 / 4000 1000 / 1000 000 ml @ Wide Open IV [facility] Rx#:[id number] Dextrose 5%-1/2Ns IV 1000 / 1000 Solution 1,000 ml @ 250 mls/hr IV .Q4H [facility] Rx#: [id number] HumuLIN R 50 UNIT In 2 / 2 34 / 34 8 / 8 Sodium Chloride 0.9% 100 ml @ 1 UNIT/HR 2.01 mls/ hr IV Q24H [facility] Rx#: [id number] Zosyn 3.375 gm In 50 / 50 50 / 50 Dextrose 5% in Water 50 ml @ 100 mls/hr IV Q8H [facility] Rx#:[id number] Vancomycin 1,500 mg In 500 / 500 500 / 500 Sodium Chloride 0.9% 500 ml @ 333.3 mls/hr IV Q12H [facility] Rx#:[id number] Oral 200 / 200 Output: Void Amount 420 / 420 2500 / 2500 500 / 500 Other: Weight 197 lb 8 oz Intake & Output: Intake & Output 01/26/17 01/27/17 01/27/17 21:59 05:59 13:59 Intake Total 1702 / 2752 5084 / 5084 2145 / 2145 Output Total 420 / 420 2500 / 2500 500 / 500 Balance 1282 / 2332 2584 / 2584 1645 / 1645 Weight 197 lb 8 oz Intake: IV 1502 / 1502 5084 / 5084 2145 / 2145 Sodium Chloride 0.9% 1, 4000 / 4000 1000 / 1000 000 ml @ Wide Open IV [facility] Rx#:[id number] Dextrose 5%-1/2Ns IV 1000 / 1000 Solution 1,000 ml @ 250 mls/hr IV .Q4H [facility] Rx#: [id number] HumuLIN R 50 UNIT In 2 / 2 34 / 34 8 / 8 Sodium Chloride 0.9% 100 ml @ 1 UNIT/HR 2.01 mls/ hr IV Q24H [facility] Rx#: [id number] Zosyn 3.375 gm In 50 / 50 50 / 50 Dextrose 5% in Water 50 ml @ 100 mls/hr IV Q8H [facility] Rx#:[id number] Vancomycin 1,500 mg In 500 / 500 500 / 500 Sodium Chloride 0.9% 500 ml @ 333.3 mls/hr IV Q12H [facility] Rx#:[id number] Oral 200 / 200 Output: Void Amount 420 / 420 2500 / 2500 500 / 500 Weight bearing status: as tolerated Neurological exam IM: Yes abnormal gait Extremities exam IM: Yes joint swelling, Yes pedal edema, Yes tenderness, Yes Foot pink and warm - Periperhal Pulses Peripheral pulses: 1+: dorsalis pedis (L), dorsalis pedis (R), posterior tibialis (L), posterior tibialis (R) - Labs CBC & BMP: 01/27/17 05:19 01/27/17 08:15 Labs: 01/27/17 05:19 Hgb 13.0 L Hct 38.5 L Assessment and Plan (1) Diabetic ulcer of toe associated with diabetes mellitus due to underlying condition Status: Acute Priority: High Comment: continue IV antibiotic therapy. He can become more medically stable prior to MRI. The incision and drainage with possible bone excision will be performed after the MRI to rule out ostium myelitis of the second metatarsal and/or first ray of the left foot. Podiatry will continue follow on a daily basis for this issue Qualifiers: Laterality: left Non-pressure ulcer stage: with fat layer exposed Qualified Code(s): E08.621 - Diabetes mellitus due to underlying condition with foot ulcer; L97.522 - Non-pressure chronic ulcer of other part of left foot with fat layer exposed (2) Diabetic nephropathy Status: Chronic Priority: High Qualifiers: Diabetes mellitus type: type 2 Qualified Code(s): E11.21 - Type 2 diabetes mellitus with diabetic nephropathy (3) Hypokalemia Status: Acute (4) Iron deficiency anemia Status: Acute Qualifiers: Iron deficiency anemia type: unspecified iron deficiency Qualified Code(s) : D50.9 - Iron deficiency anemia, unspecified (5) Acid reflux Status: Chronic (6) Arthritis Status: Chronic (7) DMII (diabetes mellitus, type 2) Status: Chronic Qualifiers: Diabetes mellitus complication status: with neurologic complications Diabetes mellitus complication detail: with polyneuropathy Diabetes mellitus long-term insulin use: with long-term use Qualified Code(s): E11.42 - Type 2 diabetes mellitus with diabetic polyneuropathy (8) Daytime sleepiness Status: Chronic (9) Depression Status: Chronic Qualifiers: Depression Type: major depressive disorder Major depression recurrence: recurrent Active/Remission status: currently active Major depression episode severity: moderate Qualified Code(s): F33.1 - Major depressive disorder, recurrent, moderate (10) Fatigue Status: Chronic (11) History of tobacco use Status: Chronic (12) Hypertension, essential Status: Chronic (13) Insomnia Status: Chronic Qualifiers: Insomnia type: primary Qualified Code(s): F51.01 - Primary insomnia (14) Peripheral neuropathy Status: Chronic Qualifiers: Peripheral neuropathy type: polyneuropathy, unspecified Qualified Code(s): G62.9 - Polyneuropathy, unspecified
[2017-01-27] MEDS ORDERED: 0.9 % SODIUM CHLORIDE 10 ML SYRINGE IV PRN (13:12)
--- NOTE | 2017-01-27 15:30 | XRay Report ---
CLINICAL INFORMATION: PICC line placement TECHNIQUE: AP portable chest x-ray COMPARISON: 01/26/2017 FINDINGS: Interval placement of a right-sided PICC line. Tip is in the right atrium. This could be pulled back approximately 5 cm to be at the junction of the cava and right atrium. No other abnormalities. Lungs remain clear. Heart size and vascularity are normal. IMPRESSION: Right-sided PICC line with its tip in the right atrium Interpreted and Authenticated by: Viktor Alarcon 01/27/17
[2017-01-27 15:45] LABS: Blood Urea Nitrogen 10 mg/dl (6-20); Magnesium 2.1 mg/dL (1.6-2.5)
[2017-01-27] MEDS: INSULIN REGULAR, HUMAN 50 UNIT in 0.9 % SODIUM CHLORIDE 100 ML IV SCH (16:22)
[2017-01-27 16:26] LABS: ABG Methemoglobin 0.3 % (0.4-1.5); VBG Base Excess -11.4 (-2.0-2.0); VBG HCO3 15.7 mmol/L (24.0-28.0); VBG Oxygen Saturation 83.4 % (40.0-70.0); VBG PCO2 39.8 mmHg (41.0-51.0); VBG PH 7.21 U (7.32-7.42); VBG PO2 60 mmHg (25-40); VBG Total CO2 16.9 mmol/L (25.0-29.0)
[2017-01-27 16:50] LABS: ALT/SGPT 22 U/l (0-40); Albumin/Globulin Ratio 0.8 (1.0-2.3); Alkaline Phosphatase 55 U/L (39-117); Bilirubin,Direct < 0.2 mg/dL (0.0-0.3); Blood Urea Nitrogen 8 mg/dl (6-20); Gamma Glutamyl Transpeptidase 55 U/L (8-61); Uric Acid 5.6 mg/dL (2.5-8.0)
[2017-01-27] MEDS ORDERED: KETOROLAC 15 MG/ML VIAL IV ONE (20:07)
[2017-01-27] MEDS: AMITRIPTYLINE 25 MG TABLET PO SCH (20:41)
[2017-01-27 21:23] LABS: ALT/SGPT 24 U/l (0-40); Albumin 2.8 gm/dL (3.2-5.2); Albumin/Globulin Ratio 0.8 (1.0-2.3); Alkaline Phosphatase 54 U/L (39-117); Bilirubin,Direct < 0.2 mg/dL (0.0-0.3); Blood Urea Nitrogen 8 mg/dl (6-20); Gamma Glutamyl Transpeptidase 62 U/L (8-61); Magnesium 1.9 mg/dL (1.6-2.5); Uric Acid 4.5 mg/dL (2.5-8.0)
[2017-01-27] MEDS ORDERED: LACTATED RINGERS 1,000 ML IV ONE (21:42)
[2017-01-27] MEDS: LACTATED RINGERS 1,000 ML IV ONE ×2 (21:54→23:57)
[2017-01-28] MEDS: DEXTROSE 5%-1/2NS 1,000 ML IV SCH (04:07)
[2017-01-28 04:15] LABS: ALT/SGPT 20 U/l (0-40); Albumin 2.3 gm/dL (3.2-5.2); Albumin/Globulin Ratio 0.7 (1.0-2.3); Alkaline Phosphatase 45 U/L (39-117); Bilirubin,Direct < 0.2 mg/dL (0.0-0.3); Blood Urea Nitrogen 6 mg/dl (6-20); Gamma Glutamyl Transpeptidase 53 U/L (8-61); Magnesium 1.7 mg/dL (1.6-2.5); Uric Acid 3.5 mg/dL (2.5-8.0)
[2017-01-28] MEDS: VANCOMYCIN 1,500 MG in 0.9 % SODIUM CHLORIDE 500 ML IV SCH ×2 (04:30→14:44)
[2017-01-28] MEDS: 0.9 % SODIUM CHLORIDE 10 ML SYRINGE IV SCH ×3 (04:45→22:52)
[2017-01-28 05:24] LABS: Mean Cell Volume 87.9 fL (80.0-100.0); Mean Corpuscular HGB Conc 33.4 g/dL (31.0-36.0); Mean Corpuscular Hemoglobin 29.4 pg (26.0-34.0); Platelet Count 164 K/mcL (140-440); Red Cell Distribution Width 15.9 % (11.5-14.5)
[2017-01-28 05:36] LABS: ALT/SGPT 21 U/l (0-40); Albumin 2.5 gm/dL (3.2-5.2); Albumin/Globulin Ratio 0.8 (1.0-2.3); Alkaline Phosphatase 50 U/L (39-117); Bilirubin,Direct < 0.2 mg/dL (0.0-0.3); Blood Urea Nitrogen 6 mg/dl (6-20); Gamma Glutamyl Transpeptidase 56 U/L (8-61); Magnesium 1.9 mg/dL (1.6-2.5); Uric Acid 3.8 mg/dL (2.5-8.0)
[2017-01-28] MEDS ORDERED: INSULIN GLARGINE, HUMAN 1 UNIT/0.01 ML SQ ONE ×2 (05:40→06:18)
[2017-01-28] MEDS ORDERED: DEXTROSE 50% 50 ML VIAL IV PRN (05:45)
[2017-01-28] MEDS ORDERED: DEXTROSE 5%-1/2NS 1,000 ML IV SCH (05:46)
[2017-01-28 06:03] LABS: Anisocytosis 1+ (NONE SEEN); Band Neutrophils % 1 % (0-10); Eosinophils % (Manual) 1 % (0-7); Lymphocytes % 20 % (15-49); Metamyelocytes % 1 % (0-0); Monocytes % (Manual) 6 % (1-12); Platelet Estimate NORMAL (NORMAL); RBC Morphology ABNORM (NORMAL); Segmented Neutrophils % 71 % (38-78)
[2017-01-28] MEDS: PIPERACILLIN SODIUM/TAZOBACTAM 3.375 GM in DEXTROSE 5% IN WATER 50 ML IV SCH ×3 (06:18→21:37)
--- NOTE | 2017-01-28 09:09 | Internal Med Progress Note ---
Medical - PN: Subj Patient information: Note initiated : 01/28/17 at 9:07 am Service Date, if different from initiated Date: [] Patient: Gregory Garcia 46 y/o M admitted on 01/26/17 for Inf L Foot, L Flank Pain/Diabetic Ketoacidosis. Chief Complaint: [] Interval history: Mr. Garcia is a 46 year old male with h/o DM and other medical issues, chr right toe wound, presented to the ER with complaints of pain in the right foot for 2 days. The patient notes he has had a chr wound from diabetes on the right toe, this has been a non healing wound and he follows with Dr Pan madrigal wood heel back liner who has been working with him. The patient fell and injured his right side body and injured the right toe on january 24. After this the patient noted increased redness and swelling of the right toe, the patient notes that the redness start ed to spread, and the pain worsened to a point where he could not lay foot on the ground. Pain throbbing in nature, worse with activity better with rest, Non radiating. he therefore presented to the ER . In the ER the patient was noted to have elevated wbc, high k, low sodium elevate glucose > 300, high gap, low bicarb. Patient had elevaetd betahydroxybutyrate, elevated anion gap, and ph of 7.2. He was admitted to the hospital with diagnosis of acute DKA and Acute osteomyelitis. The patient notes that around 11 of january he has not taken any of his medications including insulin, as his insurance ran out. 01/27: Pt seen examined, no acute overnight events, doing well, feels very thirsty and wants to drink something , partched. patient albs reviwed, still in DKA needing IV fluids and iv insulin. still has some chills and fever. 01/28: patient seen examined, ovenight his ag was elevated a bit, but responded to fluids, hemodynamically stable, wanting to eat desperately, switched to sq insulin and sliding sacle. the left foot is getting worse, there is now an area pus seen on the left foot base, pt is significant pain from same. his DKA is tenuous and he may return in DKA should his infection spread, he has had some fever overnight, and the redness in the foot is spreading MRI this am to evaluate if OM and then discuss with Podiatry for possible intervention today, Source control will help significantly, for his DKA as well as his severe pain. Pertinent ROS: Denies headache, dizziness Denies chest pain, palpitations Denies cough or shortness of breath Denies abdominal pain, nausea or vomiting. - Constitutional Vitals: Vital Signs Temp Pulse Resp BP Pulse Ox 98.7 F 99 H 20 150/89 100 01/28/17 04:01 01/28/17 07:15 01/28/17 07:15 01/28/17 06:01 01/28/17 07:15 Period Temp Pulse Resp BP Sys/Dinh Pulse Ox Last 24 Hr 96.9 F-100.4 F 68-99 16-20 108-165/78-134 87-100 Intake and Output 01/27/17 01/28/17 01/28/17 21:59 05:59 13:59 Intake Total 2376 / 2376 4113.0909 / 4113.0909 339 / 339 Output Total 2099 / 2099 400 / 400 400 / 400 Balance 276 / 276 3713.0909 / 3713.0909 -61 / -61 Weight 209 lb 11.2 oz Intake & Output: Intake & Output 01/27/17 01/28/17 01/28/17 21:59 05:59 13:59 Intake Total 2376 / 2376 4113.0909 / 4113.0909 339 / 339 Output Total 2100 / 2100 400 / 400 400 / 400 Balance 276 / 276 3713.0909 / 3713.0909 -61 / -61 Weight 209 lb 11.2 oz Intake: IV 2316 / 2316 4088.0909 / 4088.0909 339 / 339 Dextrose 5%-1/2Ns IV 1740 / 1740 1000 / 1000 282 / 282 Solution 1,000 ml @ 150 mls/hr IV .Q6H40M [facility] Rx# :[id number] HumuLIN R 50 UNIT In 29 / 7 / 7 Sodium Chloride 0.9% 100 ml @ 1 UNIT/HR 2.01 mls/ hr IV Q24H [facility] Rx#: [id number] Lactated Ringers 1,000 ml 1999 / 1999 @ Wide Open IV [facility] Rx#:[id number] Zosyn 3.375 gm In 50 / 50 50 / 50 50 / 50 Dextrose 5% in Water 50 ml @ 100 mls/hr IV Q8H [facility] Rx#:[id number] Vancomycin 1,500 mg In 500 / 500 500 / 500 Sodium Chloride 0.9% 500 ml @ 333.3 mls/hr IV Q12H [facility] Rx#:[id number] Oral 60 / 60 25 / 25 Output: Void Amount 2100 / 2100 400 / 400 400 / 400 Other: # Voids 0 0 Exam: Constitutional; Afebrile, cooperative, alert, not in distress. Eyes- No icterus, , No periorbital swelling Ears- Ext ear normal, hearing normal to conversation. Neck- Midline trachea, supple Respiratory system: Air Entry equal on both sides, No crackles or wheezing, no rhonchi. CVS- Rate rhythm regular, S1,S2 heard, no gallop, no rub. Abdomen- Soft nontender abdomen, no organomegaly, no tenderness, no guarding or rigidity, [employer]- AOOx3, moving all extremities, no gross focal deficit noted. Left foot: area of pus clearly noted in the arch of the left foot 2x1 c ms, surround area of erythema 10x12 c ms increasing outside the skin marking done yesterday. Medical - PN: Obj Da - Labs CBC & Chem 7: 01/28/17 04:38 01/28/17 04:38 Labs: Abnormal Lab Results 01/28/17 01/28/17 01/28/17 04:38 04:38 03:00 WBC RBC 3.70 L Hgb 10.9 L Hct 32.5 L RDW 15.9 H Gran % Lymph % (Auto) Gran # Lymph # (Auto) Metamyelocytes % 1 H RBC Morphology Abnorm A Anisocytosis 1+ A ABG Methemoglobin VBG pH VBG pCO2 VBG pO2 VBG HCO3 VBG Total CO2 VBG O2 Saturation VBG Base Excess Carboxyhemoglobin Total Hemoglobin Sodium 129 L Carbon Dioxide 18 L 16 L Anion Gap Creatinine Glucose 190 H 498 H* Uric Acid Calcium 7.2 L 6.5 L Phosphorus 1.5 L 1.7 L GGT Total Protein 5.8 L 5.4 L Albumin 2.5 L 2.3 L Globulin Albumin/Globulin Ratio 0.8 L 0.7 L Beta-Hydroxybutyrate 1.60 H Urine Protein Urine Glucose (UA) Urine Ketones Urine Occult Blood Hyaline Casts 01/28/17 01/27/17 01/27/17 00:12 20:12 16:00 WBC RBC Hgb Hct RDW Gran % Lymph % (Auto) Gran # Lymph # (Auto) Metamyelocytes % RBC Morphology Anisocytosis ABG Methemoglobin VBG pH VBG pCO2 VBG pO2 VBG HCO3 VBG Total CO2 VBG O2 Saturation VBG Base Excess Carboxyhemoglobin Total Hemoglobin Sodium 131 L Carbon Dioxide 14 L Anion Gap 17.0 H Creatinine Glucose 229 H Uric Acid Calcium 7.1 L Phosphorus 2.1 L 2.1 L GGT 62 H Total Protein Albumin 2.8 L Globulin Albumin/Globulin Ratio 0.8 L Beta-Hydroxybutyrate 2.29 H Urine Protein Urine Glucose (UA) Urine Ketones Urine Occult Blood Hyaline Casts 01/27/17 01/27/17 01/27/17 16:00 16:00 12:00 WBC RBC Hgb Hct RDW Gran % Lymph % (Auto) Gran # Lymph # (Auto) Metamyelocytes % RBC Morphology Anisocytosis ABG Methemoglobin 0.3 L VBG pH 7.21 L VBG pCO2 39.8 L VBG pO2 60 H VBG HCO3 15.7 L VBG Total CO2 16.9 L VBG O2 Saturation 83.4 H VBG Base Excess -11.4 L Carboxyhemoglobin 3.3 H Total Hemoglobin 11.5 L Sodium Carbon Dioxide 17 L 15 L Anion Gap 17.0 H Creatinine Glucose 173 H 243 H Uric Acid Calcium 7.4 L 7.3 L Phosphorus 1.7 L 2.6 L GGT Total Protein Albumin 3.0 L Globulin Albumin/Globulin Ratio 0.8 L Beta-Hydroxybutyrate Urine Protein Urine Glucose (UA) Urine Ketones Urine Occult Blood Hyaline Casts 01/27/17 01/27/17 01/27/17 08:30 08:15 05:19 WBC 12.1 H RBC 4.45 L Hgb 13.0 L Hct 38.5 L RDW 16.4 H Gran % 89.5 H Lymph % (Auto) 6.2 L Gran # 10.8 H Lymph # (Auto) 0.8 L Metamyelocytes % RBC Morphology Anisocytosis ABG Methemoglobin 0.3 L VBG pH 7.23 L VBG pCO2 26.6 L VBG pO2 46 H VBG HCO3 10.9 L* VBG Total CO2 11.7 L VBG O2 Saturation 77.2 H VBG Base Excess -15.1 L Carboxyhemoglobin 2.9 H Total Hemoglobin 11.6 L Sodium 131 L Carbon Dioxide 11 L Anion Gap 21.0 H Creatinine Glucose 253 H Uric Acid Calcium 7.6 L Phosphorus 1.6 L GGT Total Protein Albumin Globulin Albumin/Globulin Ratio Beta-Hydroxybutyrate Urine Protein Urine Glucose (UA) Urine Ketones Urine Occult Blood Hyaline Casts 01/27/17 01/27/17 01/27/17 05:19 05:19 05:19 WBC RBC Hgb Hct RDW Gran % Lymph % (Auto) Gran # Lymph # (Auto) Metamyelocytes % RBC Morphology Anisocytosis ABG Methemoglobin 0.3 L VBG pH 7.24 L VBG pCO2 32.8 L VBG pO2 46 H VBG HCO3 13.8 L VBG Total CO2 14.8 L VBG O2 Saturation 77.5 H VBG Base Excess -12.4 L Carboxyhemoglobin 3.7 H Total Hemoglobin 12.8 L Sodium Carbon Dioxide 13 L Anion Gap 22.0 H Creatinine Glucose 199 H Uric Acid Calcium 8.0 L Phosphorus 1.1 L GGT Total Protein Albumin Globulin Albumin/Globulin Ratio Beta-Hydroxybutyrate 3.89 H Urine Protein Urine Glucose (UA) Urine Ketones Urine Occult Blood Hyaline Casts 01/27/17 01/27/17 01/26/17 00:10 00:10 21:50 WBC RBC Hgb Hct RDW Gran % Lymph % (Auto) Gran # Lymph # (Auto) Metamyelocytes % RBC Morphology Anisocytosis ABG Methemoglobin 0.3 L VBG pH 7.27 L VBG pCO2 30.1 L VBG pO2 145 H VBG HCO3 13.6 L VBG Total CO2 14.5 L VBG O2 Saturation 95.6 H VBG Base Excess -12.0 L Carboxyhemoglobin 2.9 H Total Hemoglobin 11.8 L Sodium 131 L 132 L Carbon Dioxide 13 L 11 L Anion Gap 21.0 H 25.0 H Creatinine Glucose 220 H 262 H Uric Acid 9.5 H Calcium 7.7 L 8.1 L Phosphorus 1.9 L GGT Total Protein Albumin Globulin 3.9 H Albumin/Globulin Ratio 0.9 L Beta-Hydroxybutyrate Urine Protein Urine Glucose (UA) Urine Ketones Urine Occult Blood Hyaline Casts 01/26/17 01/26/17 01/26/17 21:50 21:07 18:08 WBC RBC Hgb Hct RDW Gran % Lymph % (Auto) Gran # Lymph # (Auto) Metamyelocytes % RBC Morphology Anisocytosis ABG Methemoglobin 0.3 L 0.3 L VBG pH 7.18 L* 7.21 L VBG pCO2 39.7 L 29.0 L VBG pO2 45 H 66 H VBG HCO3 14.6 L 11.4 L VBG Total CO2 15.8 L 12.3 L VBG O2 Saturation 72.6 H 85.2 H VBG Base Excess -13.0 L -15.0 L Carboxyhemoglobin 3.7 H 3.5 H Total Hemoglobin 12.7 L 11.7 L Sodium Carbon Dioxide Anion Gap Creatinine Glucose Uric Acid Calcium Phosphorus GGT Total Protein Albumin Globulin Albumin/Globulin Ratio Beta-Hydroxybutyrate Urine Protein 100 A Urine Glucose (UA) >=500 A Urine Ketones 80 A Urine Occult Blood 0.03 A Hyaline Casts 7 H 01/26/17 18:08 WBC RBC Hgb Hct RDW Gran % Lymph % (Auto) Gran # Lymph # (Auto) Metamyelocytes % RBC Morphology Anisocytosis ABG Methemoglobin VBG pH VBG pCO2 VBG pO2 VBG HCO3 VBG Total CO2 VBG O2 Saturation VBG Base Excess Carboxyhemoglobin Total Hemoglobin Sodium 131 L Carbon Dioxide 12 L Anion Gap 23.0 H Creatinine 1.4 H Glucose 274 H Uric Acid 9.6 H Calcium 7.9 L Phosphorus 2.0 L GGT Total Protein Albumin 3.1 L Globulin 3.8 H Albumin/Globulin Ratio 0.8 L Beta-Hydroxybutyrate Urine Protein Urine Glucose (UA) Urine Ketones Urine Occult Blood Hyaline Casts Meds: Medications Acetaminophen (Tylenol) 650 mg PO Q4-6HP PRN PRN Reason: PAIN/FEVER > 101 Last Admin: 01/27/17 20:41 Dose: 650 mg Albuterol/Ipratropium (Duoneb) 3 ml NEB Q4HRT PRN PRN Reason: Shortness Of Breath Or Wheezing Amitriptyline HCl (Elavil) 100 mg PO HS [facility] Last Admin: 01/27/17 20:41 Dose: 100 mg Citalopram Hydrobromide (Celexa) 40 mg PO DAILY [facility] Last Admin: 01/27/17 08:58 Dose: 40 mg Dextrose (Dextrose 50%) 50 ml IV ONCE PRN PRN Reason: ase pe protocol. Dextrose (Dextrose 50%) 0 ml IV UD PRN PRN Reason: Hypoglycemia Diagnostic Test (Pha) (Accu-Chek) 1 each FS ACHS [facility] Last Admin: 01/28/17 08:40 Dose: 1 each Famotidine (Pepcid) 20 mg IV Q12 [facility] Last Admin: 01/27/17 20:41 Dose: 20 mg Heparin Sodium (Porcine) (Heparin) 5,000 unit SQ Q12 [facility] Last Admin: 01/27/17 20:41 Dose: 5,000 unit Heparin Sodium (Porcine) (Heparin Flush) 2 ml IV Q12 [facility] Last Admin: 01/27/17 20:42 Dose: 2 ml Hydromorphone HCl (Dilaudid) 0.5 mg IV Q2HP PRN PRN Reason: Pain Last Admin: 01/27/17 14:34 Dose: 0.5 mg Insulin Human Regular 50 unit/ (Sodium Chloride) 100.5 mls @ 2.01 mls/hr IV Q24H [facility]; 1 UNIT/HR PRN Reason: Protocol Last Titration: 01/28/17 06:15 Dose: 0 unit/hr, 0 mls/hr Piperacillin Sod/Tazobactam (Sod 3.375 gm/ Dextrose) 50 mls @ 100 mls/hr IV Q8H [facility] Last Infusion: 01/28/17 06:52 Dose: Infused Vancomycin HCl 1,500 mg/ (Sodium Chloride) 500 mls @ 333.3 mls/hr IV Q12H [facility] Last Infusion: 01/28/17 05:55 Dose: Infused Dextrose/Sodium Chloride (Dextrose 5%-1/2ns Iv Solution) 1,000 mls @ 50 mls/hr IV .Q20H [facility] Last Admin: 01/28/17 06:00 Dose: 50 mls/hr Insulin Human Lispro (Humalog) 0 unit SQ ACHS [facility] PRN Reason: Protocol Ketorolac Tromethamine (Toradol) 15 mg IV Q4-6HP PRN PRN Reason: Pain Stop: 01/29/17 21:51 Naloxone HCl (Narcan) 0.1 mg IV Q2MIN PRN PRN Reason: Opiate Reversal Ondansetron HCl (Zofran) 4 mg IV Q4-6HP PRN PRN Reason: Nausea And Vomiting Sodium Chloride (Saline Flush) 10 ml IV Q8 [facility] Last Admin: 01/28/17 04:45 Dose: 10 ml Sodium Chloride (Saline Flush) 10 ml IV UD PRN PRN Reason: FLUSH Vancomycin HCl (Vancomycin Per Pharmacy) 1 order IV UD [facility] - ABG Interpretation ABG results: 01/26/17 01/26/17 01/27/17 18:08 21:50 00:10 ABG Methemoglobin 0.3 L 0.3 L 0.3 L VBG pH 7.21 L 7.18 L* 7.27 L VBG pCO2 29.0 L 39.7 L 30.1 L VBG pO2 66 H 45 H 145 H VBG HCO3 11.4 L 14.6 L 13.6 L VBG Total CO2 12.3 L 15.8 L 14.5 L VBG O2 Saturation 85.2 H 72.6 H 95.6 H VBG Base Excess -15.0 L -13.0 L -12.0 L 01/27/17 01/27/17 01/27/17 05:19 08:30 16:00 ABG Methemoglobin 0.3 L 0.3 L 0.3 L VBG pH 7.24 L 7.23 L 7.21 L VBG pCO2 32.8 L 26.6 L 39.8 L VBG pO2 46 H 46 H 60 H VBG HCO3 13.8 L 10.9 L* 15.7 L VBG Total CO2 14.8 L 11.7 L 16.9 L VBG O2 Saturation 77.5 H 77.2 H 83.4 H VBG Base Excess -12.4 L -15.1 L -11.4 L Medical - PN: A/P - Time Spent With Patient Total time spent is greater than 50% in coordination of care (as documented) at patient's floor/unit and/or counseling patient: - Narrative A/P Narrative: A/P Acute diabetic ketoacidosis: resolved, this AM, continue close monitoring of glucose, his condition is still fragile given that he has an active infection which is only being managed by abx, and source control has not been achieved. Plan to get source control soon to prevent replapse. HAGMA : due to dka Hypophospatemia. : phos low being replaced, pt is not tolerating po Acute osteomyelitis: Noted on X ray, appreciate podiatry input, MRI to be done today, sandra goel with podiatry for surgery later this afternoon. DM: lantus and sliding scale insulin. Depression Resume citalopram diabetic Neuropathy: on amitriptyline , continue Hold bp meds for now Acute kidney injury: Creat much better with fluids. DVT hep sq Diet carb restricted for this AM . Full code Medical - PN: Qual - VTE Deep Vein Thrombosis/Pulmonary Embolism Present on Admission: No
--- NOTE | 2017-01-28 10:43 | Magnetic Resonance Report ---
CLINICAL INFORMATION: Diabetes. Soft tissue ulcer at the base of the left 1st digit and medial aspects of the left mid foot TECHNIQUE: Sagittal, axial, coronal images of the left foot COMPARISON: Plain film examination dated 01/26/2017 FINDINGS: Plain film examination demonstrated probable erosive change in the distal left 2nd metatarsal. There is no corresponding bone marrow edema. Findings are probably chronic. No evidence for osteomyelitis. There is generalized bone marrow edema within the left 1st distal phalanx. Appearance is consistent with osteomyelitis. There is mild marrow edema in the left 1st proximal phalanx. Osteomyelitis is possible. Other digits are negative. Metatarsals are negative without bone marrow edema. There is a very thin crescentic, subcutaneous fluid collection in the medial aspects of the left midfoot. This fluid collection measures only 2 mm in thickness. No other focal fluid collection. No drainable soft tissue abscess. No detectable soft tissue gas. There is generalized soft tissue edema. This examination was reviewed directly with Dr. Craig. IMPRESSION: 1. Bone marrow edema in the left 1st distal phalanx consistent with osteomyelitis. 2. Mild bone marrow edema in the left 1st proximal phalanx. Osteomyelitis is suspected 3. Plain film examination suggesting erosive change in the distal left 2nd metatarsal. There is no corresponding bone marrow edema in these findings are probably chronic Interpreted and Authenticated by: Viktor Alarcon 01/28/17
[2017-01-28] MEDS: CITALOPRAM 20 MG TABLET PO SCH (10:47)
[2017-01-28] MEDS: ACETAMINOPHEN 325 MG TABLET PO PRN (10:47)
[2017-01-28] MEDS: INSULIN LISPRO 1 UNIT/0.01 ML UNIT SQ SCH ×4 (10:49→21:38)
[2017-01-28] MEDS: HYDROmorphone 2 MG/ML SYRINGE IV PRN ×2 (10:49→15:43)
[2017-01-28] MEDS: HEPARIN 5,000 UNIT/ML VIAL SQ SCH ×2 (10:49→21:38)
[2017-01-28] MEDS: KETOROLAC 15 MG/ML VIAL IV PRN ×2 (10:50→14:43)
[2017-01-28] MEDS: FAMOTIDINE/PF 20 MG/2 ML VIAL IV SCH ×2 (10:50→21:38)
--- NOTE | 2017-01-28 12:29 | Orthopedic Progress Note ---
Subjective Patient information: Note initiated : 01/28/17 at 12:26 pm Service Date, if different from initiated Date: [] Patient: Gregory Garcia 46 y/o M admitted on 01/26/17 for Inf L Foot, L Flank Pain/Diabetic Ketoacidosis. Chief Complaint: [my left foot hurts really bad] Principal diagnosis: left foot wound Interval history: patient has worsening pain to the left foot. He had difficulty sleeping last night. He spiked a fever last night. Otherwise no vomiting or other issues. He does not want a catheter placed. He understands that he will need be nonweightbearing to that side however he would still prefer not to have a catheter. He is eager to know the results of the magnetic resonance imaging. Pertinent ROS: muscular skeletal: Pain in the left foot with severe erythema and edema loss of skin tension lines. Objective Vital signs: Vital Signs Temp Pulse Pulse Resp BP BP Pulse Ox 01/28/17 11:38 100.4 F H 20 174/98 95 01/28/17 11:35 100.4 F H 17 174/98 95 01/28/17 10:13 20 171/90 99 01/28/17 08:01 15 160/89 95 01/28/17 07:15 99 H 20 100 01/28/17 07:02 100.3 F H 18 152/84 100 01/28/17 06:01 150/89 01/28/17 05:04 152/86 01/28/17 05:02 141/121 01/28/17 04:01 98.7 F 16 128/87 01/28/17 03:01 128/115 01/28/17 02:00 98.0 F 16 122/92 01/28/17 01:00 96.9 F L 68 16 01/28/17 00:01 108/80 01/27/17 23:00 147/80 01/27/17 22:11 98.8 F 01/27/17 22:01 147/80 01/27/17 21:03 85 100 01/27/17 20:58 84 87 L 01/27/17 20:47 100.4 F H 95 H 18 165/95 100 01/27/17 20:26 84 98 01/27/17 19:08 83 100 01/27/17 18:12 85 140/82 96 01/27/17 17:30 98.9 F 160/94 94 01/27/17 16:04 99.0 F H 86 18 160/94 100 01/27/17 16:03 85 99 01/27/17 14:34 153/98 01/27/17 14:01 98.0 F 16 145/134 98 01/27/17 14:00 82 18 100 Intake and Output 01/27/17 01/28/17 01/28/17 21:59 05:59 13:59 Intake Total 2376 / 2376 4113.0909 / 4113.0909 651 / 651 Output Total 2099 / 2099 400 / 400 1900 / 1900 Balance 276 / 276 3713.0909 / 3713.0909 -1249 / -1249 Intake: IV 2316 / 2316 4088.0909 / 4088.0909 651 / 651 Dextrose 5%-1/2Ns IV 1740 / 1740 1000 / 1000 594 / 594 Solution 1,000 ml @ 50 mls/hr IV .Q20H [facility] Rx#: [id number] HumuLIN R 50 UNIT In / 29 / 29 7 / 7 Sodium Chloride 0.9% 100 ml @ 1 UNIT/HR 2.01 mls/ hr IV Q24H [facility] Rx#: [id number] Lactated Ringers 1,000 ml 1999 / 1999 @ Wide Open IV [facility] Rx#:[id number] Zosyn 3.375 gm In 50 / 50 50 / 50 50 / 50 Dextrose 5% in Water 50 ml @ 100 mls/hr IV Q8H [facility] Rx#:[id number] Vancomycin 1,500 mg In 500 / 500 500 / 500 Sodium Chloride 0.9% 500 ml @ 333.3 mls/hr IV Q12H [facility] Rx#:[id number] Oral 60 / 60 25 / 25 Output: Void Amount 2099 / 2099 400 / 400 1900 / 1900 Other: # Voids 0 0 Weight 209 lb 11.2 oz Intake & Output: Intake & Output 01/27/17 01/28/17 01/28/17 21:59 05:59 13:59 Intake Total 2376 / 2376 4113.0909 / 4113.0909 651 / 651 Output Total 2099 / 2100 400 / 400 1900 / 1900 Balance 276 / 276 3713.0909 / 3713.0909 -1249 / -1249 Weight 209 lb 11.2 oz Intake: IV 2316 / 2316 4088.0909 / 4088.0909 651 / 651 Dextrose 5%-1/2Ns IV 1740 / 1740 1000 / 1000 594 / 594 Solution 1,000 ml @ 50 mls/hr IV .Q20H [facility] Rx#: [id number] HumuLIN R 50 UNIT In 29 / 7 / 7 Sodium Chloride 0.9% 100 ml @ 1 UNIT/HR 2.01 mls/ hr IV Q24H [facility] Rx#: [id number] Lactated Ringers 1,000 ml 1999 / 1999 @ Wide Open IV [facility] Rx#:[id number] Zosyn 3.375 gm In 50 / 50 50 / 50 50 / 50 Dextrose 5% in Water 50 ml @ 100 mls/hr IV Q8H [facility] Rx#:[id number] Vancomycin 1,500 mg In 500 / 500 500 / 500 Sodium Chloride 0.9% 500 ml @ 333.3 mls/hr IV Q12H [facility] Rx#:[id number] Oral 60 / 60 25 / 25 Output: Void Amount 2100 / 2100 400 / 400 1900 / 1900 Other: # Voids 0 0 Weight bearing status: non (nonweightbearing left foot) Neurological exam IM: Yes abnormal gait, Yes motor sensory deficit Extremities exam IM: Yes joint swelling, Yes pedal edema, Yes tenderness, Yes Foot pink and warm - Periperhal Pulses Peripheral pulses: 1+: dorsalis pedis (L), posterior tibialis (L), 2+: dorsalis pedis (R), posterior tibialis (R) - Diagnostic Results Ankle MRI: report reviewed (acute osteomyelitis left distal phalanx. And edema of the medullary canal of the proximal phalanx left hallux), image reviewed - Labs CBC & BMP: 01/28/17 04:38 01/28/17 04:38 Labs: 01/28/17 01/28/17 01/27/17 04:38 03:00 05:19 Hgb 10.9 L Not Reportable 13.0 L Hct 32.5 L Not Reportable 38.5 L Assessment and Plan (1) Diabetic ulcer of toe associated with diabetes mellitus due to underlying condition Status: Acute Priority: High Comment: 01/28: due to patient's worsening conditions is therefore necessary to proceed with incision and drainage and partially rotation of the left hallux. He will be on IV antibiotics for 6 weeks following this procedure. There will be cultures taken of the abscess of the left midfoot and also on cultures and pathological analysis of the left distal phalanx. There'll be a bone portion of the proximal phalanx sent for clear margin analysis. He understands he is to remain nonweightbearing left foot and refuses catheter for urination. He will likely remain in hospital post procedure. the hallux incision will likely be closed if the area appears to be free of infection however the midfoot will be packed open with partial closure after the incision and drainage is complete this will be closed at a later date. 7/7continue IV antibiotic therapy. He can become more medically stable prior to MRI. The incision and drainage with possible bone excision will be performed after the MRI to rule out ostium myelitis of the second metatarsal and /or first ray of the left foot. Podiatry will continue follow on a daily basis for this issue Qualifiers: Laterality: left Non-pressure ulcer stage: with fat layer exposed Qualified Code(s): E08.621 - Diabetes mellitus due to underlying condition with foot ulcer; L97.522 - Non-pressure chronic ulcer of other part of left foot with fat layer exposed (2) Diabetic nephropathy Status: Chronic Priority: High Qualifiers: Diabetes mellitus type: type 2 Qualified Code(s): E11.21 - Type 2 diabetes mellitus with diabetic nephropathy (3) Hypokalemia Status: Acute (4) Iron deficiency anemia Status: Acute Qualifiers: Iron deficiency anemia type: unspecified iron deficiency Qualified Code(s) : D50.9 - Iron deficiency anemia, unspecified (5) Acid reflux Status: Chronic (6) Arthritis Status: Chronic (7) DMII (diabetes mellitus, type 2) Status: Chronic Qualifiers: Diabetes mellitus complication status: with neurologic complications Diabetes mellitus complication detail: with polyneuropathy Diabetes mellitus prison insulin use: with prison use Qualified Code(s): E11.42 - Type 2 diabetes mellitus with diabetic polyneuropathy (8) Daytime sleepiness Status: Chronic (9) Depression Status: Chronic Qualifiers: Depression Type: major depressive disorder Major depression recurrence: recurrent Active/Remission status: currently active Major depression episode severity: moderate Qualified Code(s): F33.1 - Major depressive disorder, recurrent, moderate (10) Fatigue Status: Chronic (11) History of tobacco use Status: Chronic (12) Hypertension, essential Status: Chronic (13) Insomnia Status: Chronic Qualifiers: Insomnia type: primary Qualified Code(s): F51.01 - Primary insomnia (14) Peripheral neuropathy Status: Chronic Qualifiers: Peripheral neuropathy type: polyneuropathy, unspecified Qualified Code(s): G62.9 - Polyneuropathy, unspecified
[2017-01-28] MEDS ORDERED: INSULIN REGULAR, HUMAN 50 UNIT in 0.9 % SODIUM CHLORIDE 100 ML IV PRN (12:45)
[2017-01-28] MEDS ORDERED: hydrOXYzine 25 MG TABLET PO PRN (12:48)
[2017-01-28] MEDS: 0.9 % SODIUM CHLORIDE 1,000 ML IV SCH ×2 (13:54→22:51)
[2017-01-28] MEDS ORDERED: ONDANSETRON 4 MG/2 ML VIAL IV ONE (17:35)
[2017-01-28] MEDS ORDERED: MIDAZOLAM 5 MG/5 ML VIAL IV ONE (17:35)
[2017-01-28] MEDS ORDERED: LIDOCAINE HCL/PF 100 MG/5 ML SYRINGE IV ONE (17:35)
[2017-01-28] MEDS ORDERED: METOCLOPRAMIDE 10 MG/2 ML VIAL IV ONE (17:35)
[2017-01-28] MEDS ORDERED: PROPOFOL 200 MG/20 ML VIAL IV ONE (17:35)
[2017-01-28] MEDS ORDERED: FAMOTIDINE/PF 20 MG/2 ML VIAL IV ONE (17:35)
[2017-01-28] MEDS ORDERED: DEXAMETHASONE 10 MG/ML VIAL IV ONE (17:35)
[2017-01-28] MEDS ORDERED: ePHEDrine 50 MG/ML AMPUL IV PRN (17:57)
[2017-01-28] MEDS ORDERED: diphenhydrAMINE 50 MG/ML VIAL IV PRN (17:57)
[2017-01-28] MEDS ORDERED: FLUMAZENIL 0.1 MG/ML ML IV PRN (17:57)
[2017-01-28] MEDS ORDERED: IPRATROPIUM/ALBUTEROL 3 ML AMPUL.NEB NEB PRN (17:57)
[2017-01-28] MEDS ORDERED: METHOCARBAMOL 1,000 MG/10 ML VIAL IV PRN (17:57)
[2017-01-28] MEDS ORDERED: HYDROmorphone 2 MG/ML SYRINGE IV PRN (17:57)
[2017-01-28] MEDS ORDERED: ATROPINE SULFATE 0.4 MG/ML VIAL IV PRN (17:57)
[2017-01-28] MEDS ORDERED: ONDANSETRON 4 MG/2 ML VIAL IV PRN (17:57)
[2017-01-28] MEDS ORDERED: NALOXONE HCL 0.4 MG/ML VIAL IV PRN (17:57)
[2017-01-28] MEDS ORDERED: METOPROLOL TARTRATE 5 MG/5 ML VIAL IV PRN (17:57)
[2017-01-28] MEDS ORDERED: BENZOCAINE/MENTHOL 1 LOZENGE PO PRN (17:57)
[2017-01-28] MEDS ORDERED: fentaNYL 100 MCG/2 ML VIAL IV PRN (17:57)
[2017-01-28] MEDS ORDERED: LACTATED RINGERS 1,000 ML IV SCH (18:00)
[2017-01-28] MEDS ORDERED: BUPIVACAINE 0.5% 50 ML VIAL IJ ONE (18:30)
--- NOTE | 2017-01-28 18:41 | Orthopedic Procedure Note ---
Date of procedure: Note initiated : 01/28/17 at 6:39 pm Service Date, if different from initiated Date: [] Pre-op diagnosis: Acute osteomyelitis LEFT hallux, Cellulitis LEFT foot Post-op diagnosis: same Procedure: Partial amputation left hallux, Incision and drainage left hallux Anesthesia: FANY [facility] Surgeon: Lenin Fletcher Estimated blood loss: 50 Pathology: other (Left hallux and cultures from midfoot left) Description of procedure: BRIEF OP NOTE, SEE NEXT PROCEDURE NOTE WHEN DICTATION IS TRANSCRIBED Condition: stable Disposition: ICU
[2017-01-28] MEDS: AMITRIPTYLINE 25 MG TABLET PO SCH (21:37)
[2017-01-29] MEDS: VANCOMYCIN 1,500 MG in 0.9 % SODIUM CHLORIDE 500 ML IV SCH ×2 (04:27→15:18)
[2017-01-29] MEDS: HYDROmorphone 2 MG/ML SYRINGE IV PRN ×4 (05:02→23:51)
[2017-01-29 05:10] LABS: Basophils # (Auto) 0 K/mcL (0.0-0.3); Basophils % (Auto) 0.3 % (0.0-2.0); Eosinophils # (Auto) 0 K/mcL (0.0-0.7); Eosinophils % (Auto) 0 % (0.0-7.0); Lymphocytes # (Auto) 0.5 K/mcL (1.5-4.8); Lymphocytes % (Auto) 6.8 % (15.5-49.0); Mean Cell Volume 88.7 fL (80.0-100.0); Mean Corpuscular Hemoglobin 29.3 pg (26.0-34.0); Monocytes # (Auto) 0.2 K/mcL (0.1-0.9); Monocytes % (Auto) 2.9 % (1.0-12.0); Platelet Count 201 K/mcL (140-440); RBC 3.98 M/mcL (4.50-5.90); Red Cell Distribution Width 15.9 % (11.5-14.5)
[2017-01-29 05:24] LABS: ALT/SGPT 37 U/l (0-40); Albumin 2.7 gm/dL (3.2-5.2); Albumin/Globulin Ratio 0.7 (1.0-2.3); Alkaline Phosphatase 59 U/L (39-117); Bilirubin,Direct < 0.2 mg/dL (0.0-0.3); Blood Urea Nitrogen 12 mg/dl (6-20); Gamma Glutamyl Transpeptidase 78 U/L (8-61); Magnesium 2.1 mg/dL (1.6-2.5)
[2017-01-29] MEDS: PIPERACILLIN SODIUM/TAZOBACTAM 3.375 GM in DEXTROSE 5% IN WATER 50 ML IV SCH ×3 (05:47→22:07)
[2017-01-29] MEDS: 0.9 % SODIUM CHLORIDE 10 ML SYRINGE IV SCH ×3 (05:47→20:42)
--- NOTE | 2017-01-29 08:13 | Orthopedic Progress Note ---
Subjective Patient information: Note initiated : 01/29/17 at 8:11 am Service Date, if different from initiated Date: [] Patient: Gregory Garcia 46 y/o M admitted on 01/26/17 for Inf L Foot, L Flank Pain/Diabetic Ketoacidosis. Chief Complaint: [] Principal diagnosis: left foot wound Interval history: patient reports sleeping decent after the procedure yesterday evening. He has resumed diet without major issues. He does not have fever chills or excessive nausea at this point. He has remained nonweightbearing to left lower extremity. He has not noted any major issues with the dressings. Dressings remained closed. Pertinent ROS: Mild pain from the left lower extremity. No cough or difficulty breathing. Objective Vital signs: Vital Signs Temp Pulse Resp BP BP Pulse Ox 01/29/17 06:01 14 119/79 95 01/29/17 04:25 15 01/29/17 04:01 13 118/72 01/29/17 02:58 14 01/29/17 02:01 13 124/80 01/29/17 02:00 72 14 99 01/29/17 00:01 25 H 120/77 01/28/17 22:59 12 01/28/17 22:00 143/94 01/28/17 20:01 124/86 01/28/17 19:52 122/83 01/28/17 19:48 10 L 122/83 99 01/28/17 19:18 72 10 L 133/86 95 01/28/17 19:08 79 12 134/83 94 01/28/17 18:53 65 10 L 100/60 100 01/28/17 18:48 68 10 L 104/56 100 01/28/17 18:43 70 10 L 101/51 100 01/28/17 18:38 97.4 F 73 10 L 111/67 100 01/28/17 16:01 20 143/81 97 01/28/17 16:00 96.7 F L 01/28/17 15:25 16 133/92 96 01/28/17 14:01 18 145/93 95 01/28/17 14:00 79 17 97 01/28/17 11:38 100.4 F H 20 174/98 95 01/28/17 11:35 100.4 F H 17 174/98 95 01/28/17 10:13 20 171/90 99 Intake and Output 01/28/17 01/29/17 01/29/17 21:59 05:59 13:59 Intake Total 1410 / 1410 1060 / 1060 550 / 550 Output Total 900 / 900 1025 / 1025 Balance 510 / 510 35 / 35 550 / 550 Intake: IV 1410 / 1410 360 / 360 550 / 550 Sodium Chloride 0.9% 1, 360 / 360 310 / 310 000 ml @ 100 mls/hr IV . Q10H [facility] Rx#:[id number] Zosyn 3.375 gm In 50 / 50 50 / 50 50 / 50 Dextrose 5% in Water 50 ml @ 100 mls/hr IV Q8H [facility] Rx#:[id number] Vancomycin 1,500 mg In 500 / 500 500 / 500 Sodium Chloride 0.9% 500 ml @ 333.3 mls/hr IV Q12H [facility] Rx#:[id number] Oral 700 / 700 Output: Void Amount 900 / 900 1025 / 1025 Other: # Voids 1 Weight 209 lb 11.2 oz Intake & Output: Intake & Output 01/28/17 01/29/17 01/29/17 21:59 05:59 13:59 Intake Total 1410 / 1410 1060 / 1060 550 / 550 Output Total 900 / 900 1025 / 1025 Balance 510 / 510 35 / 35 550 / 550 Weight 209 lb 11.2 oz Intake: IV 1410 / 1410 360 / 360 550 / 550 Sodium Chloride 0.9% 1, 360 / 360 310 / 310 000 ml @ 100 mls/hr IV . Q10H [facility] Rx#:[id number] Zosyn 3.375 gm In 50 / 50 50 / 50 50 / 50 Dextrose 5% in Water 50 ml @ 100 mls/hr IV Q8H [facility] Rx#:[id number] Vancomycin 1,500 mg In 500 / 500 500 / 500 Sodium Chloride 0.9% 500 ml @ 333.3 mls/hr IV Q12H [facility] Rx#:[id number] Oral 700 / 700 Output: Void Amount 900 / 900 1025 / 1025 Other: # Voids 1 Incision: Yes red, Yes swollen (as prior to surgery) Incision clean and dry: Yes Dressing: Yes intact Weight bearing status: non (to left) Neurological exam IM: Yes motor sensory deficit - Periperhal Pulses Peripheral pulses: 1+: dorsalis pedis (L), posterior tibialis (L), 2+: dorsalis pedis (R), posterior tibialis (R) - Labs CBC & BMP: 01/29/17 03:38 01/29/17 03:38 Labs: 01/29/17 01/28/17 01/28/17 03:38 04:38 03:00 Hgb 11.7 L 10.9 L Not Reportable Hct 35.3 L 32.5 L Not Reportable 01/27/17 05:19 Hgb 13.0 L Hct 38.5 L Assessment and Plan (1) Diabetic ulcer of toe associated with diabetes mellitus due to underlying condition Status: Acute Priority: High Comment: 01/29: patient feels a little better after having had the procedure last night. He understood all that was done. He understands that he will likely be in the hospital for a short period of time to aid in his recovery prior to being discharged and followed up as outpatient. 01/28: due to patient's worsening conditions is therefore necessary to proceed with incision and drainage and partially rotation of the left hallux. He will be on IV antibiotics for 6 weeks following this procedure. There will be cultures taken of the abscess of the left midfoot and also on cultures and pathological analysis of the left distal phalanx. There'll be a bone portion of the proximal phalanx sent for clear margin analysis. He understands he is to remain nonweightbearing left foot and refuses catheter for urination. He will likely remain in hospital post procedure. the hallux incision will likely be closed if the area appears to be free of infection however the midfoot will be packed open with partial closure after the incision and drainage is complete this will be closed at a later date. 7/7continue IV antibiotic therapy. He can become more medically stable prior to MRI. The incision and drainage with possible bone excision will be performed after the MRI to rule out ostium myelitis of the second metatarsal and /or first ray of the left foot. Podiatry will continue follow on a daily basis for this issue Qualifiers: Laterality: left Non-pressure ulcer stage: with fat layer exposed Qualified Code(s): E08.621 - Diabetes mellitus due to underlying condition with foot ulcer; L97.522 - Non-pressure chronic ulcer of other part of left foot with fat layer exposed (2) Diabetic nephropathy Status: Chronic Priority: High Qualifiers: Diabetes mellitus type: type 2 Qualified Code(s): E11.21 - Type 2 diabetes mellitus with diabetic nephropathy (3) Hypokalemia Status: Acute (4) Iron deficiency anemia Status: Acute Qualifiers: Iron deficiency anemia type: unspecified iron deficiency Qualified Code(s) : D50.9 - Iron deficiency anemia, unspecified (5) Acid reflux Status: Chronic (6) Arthritis Status: Chronic (7) DMII (diabetes mellitus, type 2) Status: Chronic Qualifiers: Diabetes mellitus complication status: with neurologic complications Diabetes mellitus complication detail: with polyneuropathy Diabetes mellitus halfway insulin use: with halfway use Qualified Code(s): E11.42 - Type 2 diabetes mellitus with diabetic polyneuropathy (8) Daytime sleepiness Status: Chronic (9) Depression Status: Chronic Qualifiers: Depression Type: major depressive disorder Major depression recurrence: recurrent Active/Remission status: currently active Major depression episode severity: moderate Qualified Code(s): F33.1 - Major depressive disorder, recurrent, moderate (10) Fatigue Status: Chronic (11) History of tobacco use Status: Chronic (12) Hypertension, essential Status: Chronic (13) Insomnia Status: Chronic Qualifiers: Insomnia type: primary Qualified Code(s): F51.01 - Primary insomnia (14) Peripheral neuropathy Status: Chronic Qualifiers: Peripheral neuropathy type: polyneuropathy, unspecified Qualified Code(s): G62.9 - Polyneuropathy, unspecified
[2017-01-29] MEDS ORDERED: 0.9 % SODIUM CHLORIDE 1,000 ML IV ONE ×4 (08:23→09:39)
[2017-01-29] MEDS ORDERED: 0.9 % SODIUM CHLORIDE 1,000 ML IV SCH (08:25)
[2017-01-29] MEDS ORDERED: ALTEPLASE 2 MG VIAL IV ONE ×2 (08:48→12:47)
[2017-01-29] MEDS: INSULIN LISPRO 1 UNIT/0.01 ML UNIT SQ SCH (09:16)
[2017-01-29] MEDS: KETOROLAC 15 MG/ML VIAL IV PRN (09:16)
[2017-01-29] MEDS: FAMOTIDINE/PF 20 MG/2 ML VIAL IV SCH ×2 (09:16→20:24)
[2017-01-29] MEDS: CITALOPRAM 20 MG TABLET PO SCH (09:17)
[2017-01-29] MEDS: HEPARIN 5,000 UNIT/ML VIAL SQ SCH ×2 (09:17→20:24)
[2017-01-29] MEDS: ACETAMINOPHEN 325 MG TABLET PO PRN (09:17)
[2017-01-29 09:35] LABS: Blood Urea Nitrogen 11 mg/dl (6-20)
[2017-01-29 09:45] LABS: Beta Hydroxybutyrate 6.69 mmol/L (< 0.27)
--- NOTE | 2017-01-29 10:00 | Internal Med Progress Note ---
Medical - PN: Subj Patient information: Note initiated : 01/29/17 at 9:57 am Service Date, if different from initiated Date: [] Patient: Gregory Garcia 46 y/o M admitted on 01/26/17 for Inf L Foot, L Flank Pain/Diabetic Ketoacidosis. Chief Complaint: [] Interval history: Mr. Garcia is a 46 year old male with h/o DM and other medical issues, chr right toe wound, presented to the ER with complaints of pain in the right foot for 2 days. The patient notes he has had a chr wound from diabetes on the right toe, this has been a non healing wound and he follows with Dr Pan madrigal food selector who has been working with him. The patient fell and injured his right side body and injured the right toe on january 24. After this the patient noted increased redness and swelling of the right toe, the patient notes that the redness start ed to spread, and the pain worsened to a point where he could not lay foot on the ground. Pain throbbing in nature, worse with activity better with rest, Non radiating. he therefore presented to the ER . In the ER the patient was noted to have elevated wbc, high k, low sodium elevate glucose > 300, high gap, low bicarb. Patient had elevaetd betahydroxybutyrate, elevated anion gap, and ph of 7.2. He was admitted to the hospital with diagnosis of acute DKA and Acute osteomyelitis. The patient notes that around 11 of january he has not taken any of his medications including insulin, as his insurance ran out. 01/27: Pt seen examined, no acute overnight events, doing well, feels very thirsty and wants to drink something , partched. patient albs reviwed, still in DKA needing IV fluids and iv insulin. still has some chills and fever. 01/28: patient seen examined, overnight his ag was elevated a bit, but responded to fluids, hemodynamically stable, wanting to eat desperately, switched to sq insulin and sliding scacle. the left foot is getting worse, there is now an area pus seen on the left foot base, pt is significant pain from same. his DKA is tenuous and he may return in DKA should his infection spread, he has had some fever overnight, and the redness in the foot is spreading MRI this am to evaluate if OM and then discuss with Podiatry for possible intervention today, Source control will help significantly, for his DKA as well as his severe pain. 01/29 Pt seen examined, he does not report any new conditions, feels that the anesthesia from the leg is wearing off, and is asking for food. The patient is also feeling thirsty He is s/o left toe amputation and Incision adn Drainage of abscess yesterday evening, Was on IV fluids and NPO overnight This AM his Anion gap is backup, his Beta hydroxybutyrate is elevated and bicarb is low again. He will continue NPO status, ok to drink water IV insulin drip resumed , 4L saline bolus and d5 half NS drip restarted, will recheck labs again this afternoon. Pertinent ROS: Denies headache, dizziness Denies chest pain, palpitations Denies cough or shortness of breath Denies abdominal pain, nausea or vomiting. - Constitutional Vitals: Vital Signs Temp Pulse Resp BP Pulse Ox 98.5 F 72 16 119/76 95 01/29/17 08:00 01/29/17 02:00 01/29/17 08:00 01/29/17 08:01 01/29/17 06:01 Period Temp Pulse Resp BP Sys/Dinh Pulse Ox Last 24 Hr 96.7 F-100.4 F 65-79 10-25 100-174/51-98 94-100 Intake and Output 01/28/17 01/29/17 01/29/17 21:59 05:59 13:59 Intake Total 1410 / 1410 1060 / 1060 550 / 550 Output Total 900 / 900 1025 / 1025 600 / 600 Balance 510 / 510 35 / 35 -50 / -50 Weight 209 lb 11.2 oz Intake & Output: Intake & Output 01/28/17 01/29/17 01/29/17 21:59 05:59 13:59 Intake Total 1410 / 1410 1060 / 1060 550 / 550 Output Total 900 / 900 1025 / 1025 600 / 600 Balance 510 / 510 35 / 35 -50 / -50 Weight 209 lb 11.2 oz Intake: IV 1410 / 1410 360 / 360 550 / 550 Sodium Chloride 0.9% 1, 360 / 360 310 / 310 000 ml @ 100 mls/hr IV . Q10H [facility] Rx#:[id number] Zosyn 3.375 gm In 50 / 50 50 / 50 50 / 50 Dextrose 5% in Water 50 ml @ 100 mls/hr IV Q8H [facility] Rx#:[id number] Vancomycin 1,500 mg In 500 / 500 500 / 500 Sodium Chloride 0.9% 500 ml @ 333.3 mls/hr IV Q12H [facility] Rx#:[id number] Oral 700 / 700 Output: Void Amount 900 / 900 1025 / 1025 600 / 600 Other: # Voids 1 1 Exam: Constitutional; Afebrile, cooperative, alert, not in distress. Eyes- No icterus, , No periorbital swelling Ears- Ext ear normal, hearing normal to conversation. Neck- Midline trachea, supple Respiratory system: Air Entry equal on both sides, No crackles or wheezing, no rhonchi. CVS- Rate rhythm regular, S1,S2 heard, no gallop, no rub. Abdomen- Soft nontender abdomen, no organomegaly, no tenderness, no guarding or rigidity, [employer]- AOOx3, moving all extremities, no gross focal deficit noted. left foot in dressing. Medical - PN: Obj Da - Labs CBC & Chem 7: 01/29/17 03:38 01/29/17 08:37 Labs: Abnormal Lab Results 01/29/17 01/29/17 01/29/17 08:37 08:37 03:38 WBC RBC Hgb Hct RDW Gran % Lymph % (Auto) Gran # Lymph # (Auto) Metamyelocytes % RBC Morphology Anisocytosis ABG Methemoglobin VBG pH VBG pCO2 VBG pO2 VBG HCO3 VBG Total CO2 VBG O2 Saturation VBG Base Excess Carboxyhemoglobin Total Hemoglobin Sodium Carbon Dioxide 10 L* 11 L Anion Gap 23.0 H 23.0 H Creatinine Glucose 192 H 197 H Uric Acid Calcium 7.8 L 8.0 L Phosphorus GGT 78 H Total Protein Albumin 2.7 L Globulin Albumin/Globulin Ratio 0.7 L Beta-Hydroxybutyrate 6.69 H Urine Protein Urine Glucose (UA) Urine Ketones Urine Occult Blood Hyaline Casts 01/29/17 01/28/17 01/28/17 03:38 04:38 04:38 WBC RBC 3.98 L 3.70 L Hgb 11.7 L 10.9 L Hct 35.3 L 32.5 L RDW 15.9 H 15.9 H Gran % 90.0 H Lymph % (Auto) 6.8 L Gran # Lymph # (Auto) 0.5 L Metamyelocytes % 1 H RBC Morphology Abnorm A Anisocytosis 1+ A ABG Methemoglobin VBG pH VBG pCO2 VBG pO2 VBG HCO3 VBG Total CO2 VBG O2 Saturation VBG Base Excess Carboxyhemoglobin Total Hemoglobin Sodium Carbon Dioxide 18 L Anion Gap Creatinine Glucose 190 H Uric Acid Calcium 7.2 L Phosphorus 1.5 L GGT Total Protein 5.8 L Albumin 2.5 L Globulin Albumin/Globulin Ratio 0.8 L Beta-Hydroxybutyrate Urine Protein Urine Glucose (UA) Urine Ketones Urine Occult Blood Hyaline Casts 01/28/17 01/28/17 01/27/17 03:00 00:12 20:12 WBC RBC Hgb Hct RDW Gran % Lymph % (Auto) Gran # Lymph # (Auto) Metamyelocytes % RBC Morphology Anisocytosis ABG Methemoglobin VBG pH VBG pCO2 VBG pO2 VBG HCO3 VBG Total CO2 VBG O2 Saturation VBG Base Excess Carboxyhemoglobin Total Hemoglobin Sodium 129 L 131 L Carbon Dioxide 16 L 14 L Anion Gap 17.0 H Creatinine Glucose 498 H* 229 H Uric Acid Calcium 6.5 L 7.1 L Phosphorus 1.7 L 2.1 L 2.1 L GGT 62 H Total Protein 5.4 L Albumin 2.3 L 2.8 L Globulin Albumin/Globulin Ratio 0.7 L 0.8 L Beta-Hydroxybutyrate 1.60 H Urine Protein Urine Glucose (UA) Urine Ketones Urine Occult Blood Hyaline Casts 01/27/17 01/27/17 01/27/17 16:00 16:00 16:00 WBC RBC Hgb Hct RDW Gran % Lymph % (Auto) Gran # Lymph # (Auto) Metamyelocytes % RBC Morphology Anisocytosis ABG Methemoglobin 0.3 L VBG pH 7.21 L VBG pCO2 39.8 L VBG pO2 60 H VBG HCO3 15.7 L VBG Total CO2 16.9 L VBG O2 Saturation 83.4 H VBG Base Excess -11.4 L Carboxyhemoglobin 3.3 H Total Hemoglobin 11.5 L Sodium Carbon Dioxide 17 L Anion Gap Creatinine Glucose 173 H Uric Acid Calcium 7.4 L Phosphorus 1.7 L GGT Total Protein Albumin 3.0 L Globulin Albumin/Globulin Ratio 0.8 L Beta-Hydroxybutyrate 2.29 H Urine Protein Urine Glucose (UA) Urine Ketones Urine Occult Blood Hyaline Casts 01/27/17 01/27/17 01/27/17 12:00 08:30 08:15 WBC RBC Hgb Hct RDW Gran % Lymph % (Auto) Gran # Lymph # (Auto) Metamyelocytes % RBC Morphology Anisocytosis ABG Methemoglobin 0.3 L VBG pH 7.23 L VBG pCO2 26.6 L VBG pO2 46 H VBG HCO3 10.9 L* VBG Total CO2 11.7 L VBG O2 Saturation 77.2 H VBG Base Excess -15.1 L Carboxyhemoglobin 2.9 H Total Hemoglobin 11.6 L Sodium 131 L Carbon Dioxide 15 L 11 L Anion Gap 17.0 H 21.0 H Creatinine Glucose 243 H 253 H Uric Acid Calcium 7.3 L 7.6 L Phosphorus 2.6 L 1.6 L GGT Total Protein Albumin Globulin Albumin/Globulin Ratio Beta-Hydroxybutyrate Urine Protein Urine Glucose (UA) Urine Ketones Urine Occult Blood Hyaline Casts 01/27/17 01/27/17 01/27/17 05:19 05:19 05:19 WBC 12.1 H RBC 4.45 L Hgb 13.0 L Hct 38.5 L RDW 16.4 H Gran % 89.5 H Lymph % (Auto) 6.2 L Gran # 10.8 H Lymph # (Auto) 0.8 L Metamyelocytes % RBC Morphology Anisocytosis ABG Methemoglobin 0.3 L VBG pH 7.24 L VBG pCO2 32.8 L VBG pO2 46 H VBG HCO3 13.8 L VBG Total CO2 14.8 L VBG O2 Saturation 77.5 H VBG Base Excess -12.4 L Carboxyhemoglobin 3.7 H Total Hemoglobin 12.8 L Sodium Carbon Dioxide Anion Gap Creatinine Glucose Uric Acid Calcium Phosphorus GGT Total Protein Albumin Globulin Albumin/Globulin Ratio Beta-Hydroxybutyrate 3.89 H Urine Protein Urine Glucose (UA) Urine Ketones Urine Occult Blood Hyaline Casts 01/27/17 01/27/17 01/27/17 05:19 00:10 00:10 WBC RBC Hgb Hct RDW Gran % Lymph % (Auto) Gran # Lymph # (Auto) Metamyelocytes % RBC Morphology Anisocytosis ABG Methemoglobin 0.3 L VBG pH 7.27 L VBG pCO2 30.1 L VBG pO2 145 H VBG HCO3 13.6 L VBG Total CO2 14.5 L VBG O2 Saturation 95.6 H VBG Base Excess -12.0 L Carboxyhemoglobin 2.9 H Total Hemoglobin 11.8 L Sodium 131 L Carbon Dioxide 13 L 13 L Anion Gap 22.0 H 21.0 H Creatinine Glucose 199 H 220 H Uric Acid Calcium 8.0 L 7.7 L Phosphorus 1.1 L 1.9 L GGT Total Protein Albumin Globulin Albumin/Globulin Ratio Beta-Hydroxybutyrate Urine Protein Urine Glucose (UA) Urine Ketones Urine Occult Blood Hyaline Casts 01/26/17 01/26/17 01/26/17 21:50 21:50 21:07 WBC RBC Hgb Hct RDW Gran % Lymph % (Auto) Gran # Lymph # (Auto) Metamyelocytes % RBC Morphology Anisocytosis ABG Methemoglobin 0.3 L VBG pH 7.18 L* VBG pCO2 39.7 L VBG pO2 45 H VBG HCO3 14.6 L VBG Total CO2 15.8 L VBG O2 Saturation 72.6 H VBG Base Excess -13.0 L Carboxyhemoglobin 3.7 H Total Hemoglobin 12.7 L Sodium 132 L Carbon Dioxide 11 L Anion Gap 25.0 H Creatinine Glucose 262 H Uric Acid 9.5 H Calcium 8.1 L Phosphorus GGT Total Protein Albumin Globulin 3.9 H Albumin/Globulin Ratio 0.9 L Beta-Hydroxybutyrate Urine Protein 100 A Urine Glucose (UA) >=500 A Urine Ketones 80 A Urine Occult Blood 0.03 A Hyaline Casts 7 H 01/26/17 01/26/17 18:08 18:08 WBC RBC Hgb Hct RDW Gran % Lymph % (Auto) Gran # Lymph # (Auto) Metamyelocytes % RBC Morphology Anisocytosis ABG Methemoglobin 0.3 L VBG pH 7.21 L VBG pCO2 29.0 L VBG pO2 66 H VBG HCO3 11.4 L VBG Total CO2 12.3 L VBG O2 Saturation 85.2 H VBG Base Excess -15.0 L Carboxyhemoglobin 3.5 H Total Hemoglobin 11.7 L Sodium 131 L Carbon Dioxide 12 L Anion Gap 23.0 H Creatinine 1.4 H Glucose 274 H Uric Acid 9.6 H Calcium 7.9 L Phosphorus 2.0 L GGT Total Protein Albumin 3.1 L Globulin 3.8 H Albumin/Globulin Ratio 0.8 L Beta-Hydroxybutyrate Urine Protein Urine Glucose (UA) Urine Ketones Urine Occult Blood Hyaline Casts Meds: Medications Acetaminophen (Tylenol) 650 mg PO Q4-6HP PRN PRN Reason: PAIN/FEVER > 101 Last Admin: 01/29/17 09:17 Dose: 650 mg Albuterol/Ipratropium (Duoneb) 3 ml NEB Q4HRT PRN PRN Reason: Shortness Of Breath Or Wheezing Amitriptyline HCl (Elavil) 100 mg PO HS [facility] Last Admin: 01/28/17 21:37 Dose: 100 mg Citalopram Hydrobromide (Celexa) 40 mg PO DAILY [facility] Last Admin: 01/29/17 09:17 Dose: 40 mg Dextrose (Dextrose 50%) 50 ml IV ONCE PRN PRN Reason: ase pe protocol. Dextrose (Dextrose 50%) 0 ml IV UD PRN PRN Reason: Hypoglycemia Diagnostic Test (Pha) (Accu-Chek) 1 each FS Q1H [facility] Famotidine (Pepcid) 20 mg IV Q12 [facility] Last Admin: 01/29/17 09:16 Dose: 20 mg Heparin Sodium (Porcine) (Heparin) 5,000 unit SQ Q12 [facility] Last Admin: 01/29/17 09:17 Dose: 5,000 unit Heparin Sodium (Porcine) (Heparin Flush) 2 ml IV Q12 [facility] Last Admin: 01/29/17 09:10 Dose: 2 ml Hydroxyzine HCl (Atarax) 100 mg PO HSP PRN PRN Reason: Insomnia Piperacillin Sod/Tazobactam (Sod 3.375 gm/ Dextrose) 50 mls @ 100 mls/hr IV Q8H [facility] Last Infusion: 01/29/17 06:30 Dose: Infused Vancomycin HCl 1,500 mg/ (Sodium Chloride) 500 mls @ 333.3 mls/hr IV Q12H [facility] Last Infusion: 01/29/17 06:52 Dose: Infused Insulin Human Regular 50 unit/ (Sodium Chloride) 100.5 mls @ 2.01 mls/hr IV Q24HP PRN; Protocol; 1 UNIT/HR PRN Reason: HYPERGLYCEMIA Potassium Chloride/Dextrose/Sod Cl (Dextrose 5%-1/2ns W/20meq Kcl) 1,000 mls @ 125 mls/hr IV .Q8H [facility] Insulin Human Lispro (Humalog) 0 unit SQ ACHS [facility] PRN Reason: Protocol Last Admin: 01/29/17 09:16 Dose: 2 unit Ketorolac Tromethamine (Toradol) 15 mg IV Q4-6HP PRN PRN Reason: Pain Stop: 01/29/17 21:51 Last Admin: 01/29/17 09:16 Dose: 15 mg Naloxone HCl (Narcan) 0.1 mg IV Q2MIN PRN PRN Reason: Opiate Reversal Ondansetron HCl (Zofran) 4 mg IV Q4-6HP PRN PRN Reason: Nausea And Vomiting Sodium Chloride (Saline Flush) 10 ml IV Q8 [facility] Last Admin: 01/29/17 05:47 Dose: 10 ml Sodium Chloride (Saline Flush) 10 ml IV UD PRN PRN Reason: FLUSH Vancomycin HCl (Vancomycin Per Pharmacy) 1 order IV UD [facility] - ABG Interpretation ABG results: 01/26/17 01/26/17 01/27/17 18:08 21:50 00:10 ABG Methemoglobin 0.3 L 0.3 L 0.3 L VBG pH 7.21 L 7.18 L* 7.27 L VBG pCO2 29.0 L 39.7 L 30.1 L VBG pO2 66 H 45 H 145 H VBG HCO3 11.4 L 14.6 L 13.6 L VBG Total CO2 12.3 L 15.8 L 14.5 L VBG O2 Saturation 85.2 H 72.6 H 95.6 H VBG Base Excess -15.0 L -13.0 L -12.0 L 01/27/17 01/27/17 01/27/17 05:19 08:30 16:00 ABG Methemoglobin 0.3 L 0.3 L 0.3 L VBG pH 7.24 L 7.23 L 7.21 L VBG pCO2 32.8 L 26.6 L 39.8 L VBG pO2 46 H 46 H 60 H VBG HCO3 13.8 L 10.9 L* 15.7 L VBG Total CO2 14.8 L 11.7 L 16.9 L VBG O2 Saturation 77.5 H 77.2 H 83.4 H VBG Base Excess -12.4 L -15.1 L -11.4 L Medical - PN: A/P - Time Spent With Patient Total time spent is greater than 50% in coordination of care (as documented) at patient's floor/unit and/or counseling patient: - Narrative A/P Narrative: A/P Acute diabetic ketoacidosis: Pt back in DKA after surgery, IV bolus fluids, insulin drip, NPO exept water, finger stick q1h, check blood gases and bmp in 3 -4 hours. monitor for low K and low Phos. HAGMA : due to dka, elevated beta hydroxy butyrate, lactic acid is normal Acute osteomyelitis/ Foot abscess : s/pdrainage and toe amputation yesterday, continue IV vanco and zosyn, cultures pending. Pain management: dialudid 1mg iv q2hrpn, toradol q6 prn. DM: on insulin drip. Depression continue citalopram. HTN: continue to hold bp meds and monitor Acute kidney injury: resolved. DVT hep sq Diet carb restricted for this AM . Full code > 45min critical care time spent managing drips, reviewing labs, care coordination. Medical - PN: Qual - VTE Deep Vein Thrombosis/Pulmonary Embolism Present on Admission: No
[2017-01-29 10:25] LABS: ABG Methemoglobin 0.3 % (0.4-1.5); VBG Base Excess -18.6 (-2.0-2.0); VBG HCO3 8.5 mmol/L (24.0-28.0); VBG Oxygen Saturation 95.1 % (40.0-70.0); VBG PCO2 24.5 mmHg (41.0-51.0); VBG PH 7.16 U (7.32-7.42); VBG PO2 152 mmHg (25-40); VBG Total CO2 9.2 mmol/L (25.0-29.0)
[2017-01-29] MEDS: 0.9 % SODIUM CHLORIDE 1,000 ML IV SCH (10:29)
[2017-01-29] MEDS ORDERED: INSULIN REGULAR, HUMAN 50 UNIT in 0.9 % SODIUM CHLORIDE 99.5 ML IV SCH (11:00)
[2017-01-29] MEDS: DEXTROSE 5%-1/2NS W/20MEQ KCL 1,000 ML IV SCH ×2 (11:53→16:51)
[2017-01-29 13:46] LABS: Blood Urea Nitrogen 11 mg/dl (6-20); Magnesium 1.9 mg/dL (1.6-2.5)
[2017-01-29 17:45] LABS: Ionized Calcium 1.12 mmol/L (1.16-1.32)
[2017-01-29 18:02] LABS: Blood Urea Nitrogen 10 mg/dl (6-20)
[2017-01-29] MEDS: AMITRIPTYLINE 25 MG TABLET PO SCH (20:24)
[2017-01-29] MEDS: NEUTRA PHOS 1 PACKET PO SCH ×2 (20:24→21:11)
[2017-01-29] MEDS: INSULIN GLARGINE, HUMAN 1 UNIT/0.01 ML SQ SCH ×2 (20:25→21:11)
[2017-01-29] MEDS ORDERED: NEUTRA PHOS 1 PACKET PO SCH (21:00)
[2017-01-29 23:09] LABS: Blood Urea Nitrogen 9 mg/dl (6-20)
[2017-01-30] MEDS: DEXTROSE 5%-1/2NS W/20MEQ KCL 1,000 ML IV SCH ×2 (00:04→06:46)
[2017-01-30] MEDS: HYDROmorphone 2 MG/ML SYRINGE IV PRN ×5 (03:24→22:11)
[2017-01-30] MEDS: VANCOMYCIN 1,500 MG in 0.9 % SODIUM CHLORIDE 500 ML IV SCH ×2 (04:05→16:26)
[2017-01-30 05:11] LABS: Basophils # (Auto) 0 K/mcL (0.0-0.3); Basophils % (Auto) 0.4 % (0.0-2.0); Eosinophils # (Auto) 0.2 K/mcL (0.0-0.7); Eosinophils % (Auto) 2.2 % (0.0-7.0); Lymphocytes # (Auto) 1.2 K/mcL (1.5-4.8); Lymphocytes % (Auto) 15.7 % (15.5-49.0); Mean Cell Volume 88.5 fL (80.0-100.0); Mean Corpuscular HGB Conc 33.6 g/dL (31.0-36.0); Mean Corpuscular Hemoglobin 29.7 pg (26.0-34.0); Monocytes # (Auto) 0.7 K/mcL (0.1-0.9); Monocytes % (Auto) 9.7 % (1.0-12.0); Platelet Count 221 K/mcL (140-440); RBC 3.71 M/mcL (4.50-5.90); Red Cell Distribution Width 15.8 % (11.5-14.5)
[2017-01-30] MEDS: PIPERACILLIN SODIUM/TAZOBACTAM 3.375 GM in DEXTROSE 5% IN WATER 50 ML IV SCH ×3 (05:12→21:37)
[2017-01-30] MEDS: 0.9 % SODIUM CHLORIDE 10 ML SYRINGE IV SCH ×3 (05:23→22:25)
[2017-01-30 05:42] LABS: ALT/SGPT 34 U/l (0-40); Albumin 2.7 gm/dL (3.2-5.2); Albumin/Globulin Ratio 0.8 (1.0-2.3); Alkaline Phosphatase 57 U/L (39-117); Bilirubin,Direct < 0.2 mg/dL (0.0-0.3); Blood Urea Nitrogen 7 mg/dl (6-20); C-Reactive Protein 4.8 mg/dl (0.0-0.8); Gamma Glutamyl Transpeptidase 78 U/L (8-61); Magnesium 1.8 mg/dL (1.6-2.5); Uric Acid 4.2 mg/dL (2.5-8.0)
[2017-01-30 06:24] LABS: Erythrocyte Sedimentation Rate 82 mm/hr (0-15)
--- NOTE | 2017-01-30 06:25 | Orthopedic Progress Note ---
Subjective Patient information: Note initiated : 01/30/17 at 6:17 am Service Date, if different from initiated Date: [] Patient: Gregory Garcia 46 y/o M admitted on 01/26/17 for Inf L Foot, L Flank Pain/Diabetic Ketoacidosis. Chief Complaint: [] Principal diagnosis: left foot wound Interval history: last 24 hours were not bad, patient reports a throb to the foot that was better after changing the dressings. He does not have any new complaints. He is happy to have eaten last night. He does not feel as sick as he did before. He is in good spirits and is conversing with ease. Pertinent ROS: No fever, chills, nausea or vomiting. Some throbbing from foot. Objective Vital signs: Vital Signs Temp Pulse Pulse Resp BP BP Pulse Ox 01/30/17 04:05 11 L 01/30/17 04:01 16 145/87 01/30/17 04:00 99.3 F H 01/30/17 02:37 12 01/30/17 02:01 14 125/79 01/30/17 00:07 17 01/30/17 00:01 140/100 01/30/17 00:00 98.5 F 01/29/17 22:26 16 140/86 01/29/17 22:24 14 182/145 01/29/17 22:22 140/86 01/29/17 22:05 11 L 01/29/17 22:04 17 153/103 01/29/17 22:01 20 144/103 01/29/17 20:01 141/89 01/29/17 20:00 97.4 F 01/29/17 19:17 81 01/29/17 18:05 98.7 F 24 H 130/91 98 01/29/17 15:23 18 146/92 01/29/17 15:22 97.3 F 16 146/92 96 01/29/17 14:00 78 16 96 01/29/17 12:20 81 120/73 99 01/29/17 10:00 11 L 118/72 01/29/17 08:01 119/76 01/29/17 08:00 98.5 F 81 18 100 Intake and Output 01/29/17 01/30/17 01/30/17 21:59 05:59 13:59 Intake Total 3009 / 3009 50 / 50 Output Total 2750 / 2750 1425 / 1425 Balance 259 / 259 -1375 / -1375 Intake: IV 1569 / 1569 50 / 50 Dextrose 5%-1/2Ns W/20Meq 1000 / 1000 KCl 1,000 ml @ 125 mls/ hr IV .Q8H [facility] Rx#: [id number] HumuLIN R 50 UNIT In 19 / 19 Sodium Chloride 0.9% 99.5 ml @ 2 UNIT/HR 4 mls/hr IV Q24H [facility] Rx#:[id number] Zosyn 3.375 gm In 50 / 50 50 / 50 Dextrose 5% in Water 50 ml @ 100 mls/hr IV Q8H [facility] Rx#:[id number] Vancomycin 1,500 mg In 500 / 500 Sodium Chloride 0.9% 500 ml @ 333.3 mls/hr IV Q12H [facility] Rx#:[id number] Oral 1440 / 1440 Output: Void Amount 2750 / 2750 1425 / 1425 Other: Meal Dinner Percent of Meal Consumed 100% Feeding Ability Independent # Voids 1 1 Weight 227 lb 3.2 oz Intake & Output: Intake & Output 01/29/17 01/30/17 01/30/17 21:59 05:59 13:59 Intake Total 3009 / 3009 50 / 50 Output Total 2750 / 2750 1425 / 1425 Balance 259 / 259 -1375 / -1375 Weight 227 lb 3.2 oz Intake: IV 1569 / 1569 50 / 50 Dextrose 5%-1/2Ns W/20Meq 1000 / 1000 KCl 1,000 ml @ 125 mls/ hr IV .Q8H [facility] Rx#: [id number] HumuLIN R 50 UNIT In 19 / 19 Sodium Chloride 0.9% 99.5 ml @ 2 UNIT/HR 4 mls/hr IV Q24H [facility] Rx#:[id number] Zosyn 3.375 gm In 50 / 50 50 / 50 Dextrose 5% in Water 50 ml @ 100 mls/hr IV Q8H [facility] Rx#:[id number] Vancomycin 1,500 mg In 500 / 500 Sodium Chloride 0.9% 500 ml @ 333.3 mls/hr IV Q12H [facility] Rx#:[id number] Oral 1440 / 1440 Output: Void Amount 2750 / 2750 1425 / 1425 Other: Meal Dinner Percent of Meal Consumed 100% Feeding Ability Independent # Voids 1 1 Incision: Yes healing, Yes clean and dry Incision clean and dry: Yes Dressing: Yes clean, Yes dry, Yes intact Weight bearing status: non Neurological exam IM: Yes motor sensory deficit Extremities exam IM: Yes joint swelling, Yes tenderness - Periperhal Pulses Peripheral pulses: 1+: dorsalis pedis (L), posterior tibialis (L), 2+: dorsalis pedis (R), posterior tibialis (R) - Labs CBC & BMP: 01/30/17 04:00 01/30/17 04:00 Labs: 01/30/17 01/29/17 01/28/17 04:00 03:38 04:38 Hgb 11.0 L 11.7 L 10.9 L Hct 32.8 L 35.3 L 32.5 L 01/28/17 01/27/17 03:00 05:19 Hgb Not Reportable 13.0 L Hct Not Reportable 38.5 L Assessment and Plan (1) Diabetic ulcer of toe associated with diabetes mellitus due to underlying condition Status: Acute Priority: High Comment: 01/30: S/P day 2 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 Improvment in symptoms and appearance. He does not have any major questions. He was comfortable with the appearance of his ampuation and thought it would look worse than it did. He does not have any major complaints at this time. He is optimistic about the healing potential of his foot. - Dressings changed today: xeroform, kerlix and RAVI (light) - Continue IVABX - Change packing on 01/31/1701/29: patient feels a little better after having had the procedure last night. He understood all that was done. He understands that he will likely be in the hospital for a short period of time to aid in his recovery prior to being discharged and followed up as outpatient. 01/28: due to patient's worsening conditions is therefore necessary to proceed with incision and drainage and partially rotation of the left hallux. He will be on IV antibiotics for 6 weeks following this procedure. There will be cultures taken of the abscess of the left midfoot and also on cultures and pathological analysis of the left distal phalanx. There'll be a bone portion of the proximal phalanx sent for clear margin analysis. He understands he is to remain nonweightbearing left foot and refuses catheter for urination. He will likely remain in hospital post procedure. the hallux incision will likely be closed if the area appears to be free of infection however the midfoot will be packed open with partial closure after the incision and drainage is complete this will be closed at a later date. 7/7continue IV antibiotic therapy. He can become more medically stable prior to MRI. The incision and drainage with possible bone excision will be performed after the MRI to rule out ostium myelitis of the second metatarsal and /or first ray of the left foot. Podiatry will continue follow on a daily basis for this issue Qualifiers: Laterality: left Non-pressure ulcer stage: with fat layer exposed Qualified Code(s): E08.621 - Diabetes mellitus due to underlying condition with foot ulcer; L97.522 - Non-pressure chronic ulcer of other part of left foot with fat layer exposed (2) Diabetic nephropathy Status: Chronic Priority: High Qualifiers: Diabetes mellitus type: type 2 Qualified Code(s): E11.21 - Type 2 diabetes mellitus with diabetic nephropathy (3) Hypokalemia Status: Acute (4) Iron deficiency anemia Status: Acute Qualifiers: Iron deficiency anemia type: unspecified iron deficiency Qualified Code(s) : D50.9 - Iron deficiency anemia, unspecified (5) Acid reflux Status: Chronic (6) Arthritis Status: Chronic (7) DMII (diabetes mellitus, type 2) Status: Chronic Qualifiers: Diabetes mellitus complication status: with neurologic complications Diabetes mellitus complication detail: with polyneuropathy Diabetes mellitus intermediate school teacher insulin use: with intermediate school teacher use Qualified Code(s): E11.42 - Type 2 diabetes mellitus with diabetic polyneuropathy (8) Daytime sleepiness Status: Chronic (9) Depression Status: Chronic Qualifiers: Depression Type: major depressive disorder Major depression recurrence: recurrent Active/Remission status: currently active Major depression episode severity: moderate Qualified Code(s): F33.1 - Major depressive disorder, recurrent, moderate (10) Fatigue Status: Chronic (11) History of tobacco use Status: Chronic (12) Hypertension, essential Status: Chronic (13) Insomnia Status: Chronic Qualifiers: Insomnia type: primary Qualified Code(s): F51.01 - Primary insomnia (14) Peripheral neuropathy Status: Chronic Qualifiers: Peripheral neuropathy type: polyneuropathy, unspecified Qualified Code(s): G62.9 - Polyneuropathy, unspecified
[2017-01-30] MEDS: [UNRECOGNIZED DRUG - OTHER] IV SCH ×2 (08:19→19:49)
[2017-01-30] MEDS: POTASSIUM PHOSPHATE IV SCH ×2 (08:19→19:49)
[2017-01-30] MEDS: DEXTROSE 5% IV SCH ×2 (08:19→19:49)
[2017-01-30] MEDS: FAMOTIDINE/PF 20 MG/2 ML VIAL IV SCH ×2 (09:06→21:36)
[2017-01-30] MEDS: CITALOPRAM 20 MG TABLET PO SCH (09:06)
[2017-01-30] MEDS: INSULIN GLARGINE, HUMAN 1 UNIT/0.01 ML SQ SCH ×2 (09:06→21:36)
[2017-01-30] MEDS: HEPARIN 5,000 UNIT/ML VIAL SQ SCH ×2 (09:06→21:36)
[2017-01-30] MEDS: NEUTRA PHOS 1 PACKET PO SCH ×2 (09:06→21:36)
--- NOTE | 2017-01-30 10:32 | Internal Med Progress Note ---
Medical - PN: Subj Patient information: Note initiated : 01/30/17 at 10:32 am Patient: Gregory Garcia 46 y/o M admitted on 01/26/17 for Inf L Foot, L Flank Pain/Diabetic Ketoacidosis. Interval history: Mr. Garcia is a 46 year old male with h/o DM and other medical issues, chr right toe wound, presented to the ER with complaints of pain in the right foot for 2 days. The patient notes he has had a chr wound from diabetes on the right toe, this has been a non healing wound and he follows with Dr Pan madrigal mail processor who has been working with him. The patient fell and injured his right side body and injured the right toe on january 24. After this the patient noted increased redness and swelling of the right toe, the patient notes that the redness start ed to spread, and the pain worsened to a point where he could not lay foot on the ground. Pain throbbing in nature, worse with activity better with rest, Non radiating. he therefore presented to the ER . In the ER the patient was noted to have elevated wbc, high k, low sodium elevate glucose > 300, high gap, low bicarb. Patient had elevaetd betahydroxybutyrate, elevated anion gap, and ph of 7.2. He was admitted to the hospital with diagnosis of acute DKA and Acute osteomyelitis. The patient notes that around 11 of january he has not taken any of his medications including insulin, as his insurance ran out. 01/27: Pt seen examined, no acute overnight events, doing well, feels very thirsty and wants to drink something , partched. patient albs reviwed, still in DKA needing IV fluids and iv insulin. still has some chills and fever. 01/28: patient seen examined, overnight his ag was elevated a bit, but responded to fluids, hemodynamically stable, wanting to eat desperately, switched to sq insulin and sliding scacle. the left foot is getting worse, there is now an area pus seen on the left foot base, pt is significant pain from same. his DKA is tenuous and he may return in DKA should his infection spread, he has had some fever overnight, and the redness in the foot is spreading MRI this am to evaluate if OM and then discuss with Podiatry for possible intervention today, Source control will help significantly, for his DKA as well as his severe pain. 01/29 Pt seen examined, he does not report any new conditions, feels that the anesthesia from the leg is wearing off, and is asking for food. The patient is also feeling thirsty He is s/o left toe amputation and Incision adn Drainage of abscess yesterday evening, Was on IV fluids and NPO overnight This AM his Anion gap is backup, his Beta hydroxybutyrate is elevated and bicarb is low again. He will continue NPO status, ok to drink water IV insulin drip resumed , 4L saline bolus and d5 half NS drip restarted, will recheck labs again this afternoon. January 30: Today, the patient notes that his right foot is really throbbing this morning. He tells me today that he really was not checking his blood sugars at all at home, even after he ran out of insulin due to losing his insurance. He says he was celebrating January out of town. He had a wound that he and podiatry had been working on for quite a while and it was healing, but he fell off a step and ripped the scab off the wound, and then walked around in a dirty sock for a day or so before coming in. -He says he was unaware that he could become acidotic, and that that could be a threat to his life. Glucoses are currently ranging from 149-256. Serum bicarb has remained rather stubborn, but is up to 17 as of 1030 this morning. He is now on both twice daily Lantus plus low-dose insulin drip. -Maximum temperature over the last 24 hours was 99.9 this morning. -Blood pressures continue to run a little high, ranging from 150s-160s over 90. Otherwise, he denies headaches or dizziness, sore throat or cough, chest pain or palpitations, shortness of breath or wheezing, abdominal pain, nausea or vomiting, diarrhea, dysuria. - Constitutional Vitals: Vital Signs Temp Pulse Resp BP Pulse Ox 99.9 F H 81 16 165/91 98 01/30/17 07:10 01/29/17 19:17 01/30/17 07:54 01/30/17 07:10 01/29/17 18:05 Period Temp Pulse Resp BP Sys/Dinh Pulse Ox Last 24 Hr 97.3 F-99.9 F 78-81 11-24 120-182/73-145 96-99 Intake and Output 01/29/17 01/30/17 01/30/17 21:59 05:59 13:59 Intake Total 3009 / 3009 50 / 50 1533 / 1533 Output Total 2750 / 2750 1425 / 1425 1330 / 1330 Balance 259 / 259 -1375 / -1375 203 / 203 Weight 227 lb 3.2 oz Intake & Output: Intake & Output 01/29/17 01/30/17 01/30/17 21:59 05:59 13:59 Intake Total 3009 / 3009 50 / 50 1533 / 1533 Output Total 2750 / 2750 1425 / 1425 1330 / 1330 Balance 259 / 259 -1375 / -1375 203 / 203 Weight 227 lb 3.2 oz Intake: IV 1569 / 1569 50 / 50 1533 / 1533 Dextrose 5%-1/2Ns W/20Meq 1000 / 1000 983 / 983 KCl 1,000 ml @ 125 mls/ hr IV .Q8H [facility] Rx#: [id number] HumuLIN R 50 UNIT In 19 / 19 Sodium Chloride 0.9% 99.5 ml @ 2 UNIT/HR 4 mls/hr IV Q24H [facility] Rx#:[id number] Zosyn 3.375 gm In 50 / 50 50 / 50 50 / 50 Dextrose 5% in Water 50 ml @ 100 mls/hr IV Q8H [facility] Rx#:[id number] Vancomycin 1,500 mg In 500 / 500 500 / 500 Sodium Chloride 0.9% 500 ml @ 333.3 mls/hr IV Q12H [facility] Rx#:[id number] Oral 1440 / 1440 Output: Void Amount 2750 / 2750 1425 / 1425 1330 / 1330 Other: Meal Dinner Percent of Meal Consumed 100% Feeding Ability Independent # Voids 1 1 Intake and output measurements noted he is about 14 L ahead on fluid. Weight measurements indicate he is up about 30 pounds. On exam, he does not appear to be in any severe distress. Neck is supple without obvious lymphadenopathy or JVD. Cardiac exam shows regular rate and rhythm. Lungs are clear to auscultation after coughing clears a few crackles at the bases. Abdomen is soft and nontender. Right lower extremity appears normal. Left foot is heavily bandaged. The leg is still fairly edematous up to the knee. The dressing is not undone. Neurologic exam is not tested in detail but is grossly nonfocal. Medical - PN: Obj Da - Labs CBC & Chem 7: 01/30/17 04:00 01/30/17 10:23 Labs: Abnormal Lab Results 01/30/17 01/30/17 01/29/17 04:00 04:00 21:00 RBC 3.71 L Hgb 11.0 L Hct 32.8 L RDW 15.8 H Gran % Lymph % (Auto) Lymph # (Auto) 1.2 L Metamyelocytes % RBC Morphology Anisocytosis ESR 82 H ABG Methemoglobin VBG pH VBG pCO2 VBG pO2 VBG HCO3 VBG Total CO2 VBG O2 Saturation VBG Base Excess Carboxyhemoglobin Total Hemoglobin Sodium 132 L Carbon Dioxide 16 L 13 L Anion Gap Glucose 180 H 234 H Calcium 7.9 L 7.4 L Ionized Calcium Carrillo Phosphorus 1.2 L GGT 78 H C-Reactive Protein 4.8 H Total Protein Albumin 2.7 L Albumin/Globulin Ratio 0.8 L Beta-Hydroxybutyrate 01/29/17 01/29/17 01/29/17 17:12 12:47 10:05 RBC Hgb Hct RDW Gran % Lymph % (Auto) Lymph # (Auto) Metamyelocytes % RBC Morphology Anisocytosis ESR ABG Methemoglobin 0.3 L VBG pH 7.16 L* VBG pCO2 24.5 L VBG pO2 152 H VBG HCO3 8.5 L* VBG Total CO2 9.2 L* VBG O2 Saturation 95.1 H VBG Base Excess -18.6 L Carboxyhemoglobin 3.4 H Total Hemoglobin 11.8 L Sodium Carbon Dioxide 10 L* 11 L Anion Gap 19.0 H 20.0 H Glucose 262 H 173 H Calcium 7.1 L Ionized Calcium Carrillo 1.12 L Phosphorus 1.8 L GGT C-Reactive Protein Total Protein Albumin Albumin/Globulin Ratio Beta-Hydroxybutyrate 01/29/17 01/29/17 01/29/17 08:37 08:37 03:38 RBC Hgb Hct RDW Gran % Lymph % (Auto) Lymph # (Auto) Metamyelocytes % RBC Morphology Anisocytosis ESR ABG Methemoglobin VBG pH VBG pCO2 VBG pO2 VBG HCO3 VBG Total CO2 VBG O2 Saturation VBG Base Excess Carboxyhemoglobin Total Hemoglobin Sodium Carbon Dioxide 10 L* 11 L Anion Gap 23.0 H 23.0 H Glucose 192 H 197 H Calcium 7.8 L 8.0 L Ionized Calcium Carrillo Phosphorus GGT 78 H C-Reactive Protein Total Protein Albumin 2.7 L Albumin/Globulin Ratio 0.7 L Beta-Hydroxybutyrate 6.69 H 01/29/17 01/28/17 01/28/17 03:38 04:38 04:38 RBC 3.98 L 3.70 L Hgb 11.7 L 10.9 L Hct 35.3 L 32.5 L RDW 15.9 H 15.9 H Gran % 90.0 H Lymph % (Auto) 6.8 L Lymph # (Auto) 0.5 L Metamyelocytes % 1 H RBC Morphology Abnorm A Anisocytosis 1+ A ESR ABG Methemoglobin VBG pH VBG pCO2 VBG pO2 VBG HCO3 VBG Total CO2 VBG O2 Saturation VBG Base Excess Carboxyhemoglobin Total Hemoglobin Sodium Carbon Dioxide 18 L Anion Gap Glucose 190 H Calcium 7.2 L Ionized Calcium Carrillo Phosphorus 1.5 L GGT C-Reactive Protein Total Protein 5.8 L Albumin 2.5 L Albumin/Globulin Ratio 0.8 L Beta-Hydroxybutyrate 01/28/17 01/28/17 01/27/17 03:00 00:12 20:12 RBC Hgb Hct RDW Gran % Lymph % (Auto) Lymph # (Auto) Metamyelocytes % RBC Morphology Anisocytosis ESR ABG Methemoglobin VBG pH VBG pCO2 VBG pO2 VBG HCO3 VBG Total CO2 VBG O2 Saturation VBG Base Excess Carboxyhemoglobin Total Hemoglobin Sodium 129 L 131 L Carbon Dioxide 16 L 14 L Anion Gap 17.0 H Glucose 498 H* 229 H Calcium 6.5 L 7.1 L Ionized Calcium Carrillo Phosphorus 1.7 L 2.1 L 2.1 L GGT 62 H C-Reactive Protein Total Protein 5.4 L Albumin 2.3 L 2.8 L Albumin/Globulin Ratio 0.7 L 0.8 L Beta-Hydroxybutyrate 1.60 H 01/27/17 01/27/17 01/27/17 16:00 16:00 16:00 RBC Hgb Hct RDW Gran % Lymph % (Auto) Lymph # (Auto) Metamyelocytes % RBC Morphology Anisocytosis ESR ABG Methemoglobin 0.3 L VBG pH 7.21 L VBG pCO2 39.8 L VBG pO2 60 H VBG HCO3 15.7 L VBG Total CO2 16.9 L VBG O2 Saturation 83.4 H VBG Base Excess -11.4 L Carboxyhemoglobin 3.3 H Total Hemoglobin 11.5 L Sodium Carbon Dioxide 17 L Anion Gap Glucose 173 H Calcium 7.4 L Ionized Calcium Carrillo Phosphorus 1.7 L GGT C-Reactive Protein Total Protein Albumin 3.0 L Albumin/Globulin Ratio 0.8 L Beta-Hydroxybutyrate 2.29 H 01/27/17 12:00 RBC Hgb Hct RDW Gran % Lymph % (Auto) Lymph # (Auto) Metamyelocytes % RBC Morphology Anisocytosis ESR ABG Methemoglobin VBG pH VBG pCO2 VBG pO2 VBG HCO3 VBG Total CO2 VBG O2 Saturation VBG Base Excess Carboxyhemoglobin Total Hemoglobin Sodium Carbon Dioxide 15 L Anion Gap 17.0 H Glucose 243 H Calcium 7.3 L Ionized Calcium Carrillo Phosphorus 2.6 L GGT C-Reactive Protein Total Protein Albumin Albumin/Globulin Ratio Beta-Hydroxybutyrate January 29: EKG shows normal sinus rhythm at a rate of 94, with left axis deviation, right bundle branch block. January 28: Wound culture: Is growing staph aureus, with sensitivities to follow. Gram stain showed moderate to many polys and red blood cells, and a few gram- positive cocci in pairs. MRI of the left foot shows bone marrow edema in the left first distal phalanx consistent with osteomyelitis. Mild bone marrow edema in the left first proximal phalanx with possible osteomyelitis. Erosive changes in the distal left second metatarsal without bone marrow edema, probably chronic. January 27: Chest x-ray shows a right-sided PICC line with its tip in the right atrium. Lungs are clear. January 26: Nasal MRSA screen is positive. Blood cultures are negative so far. ABG on room air: PH 7.23, PCO2 22, PO2 110, bicarb 9.2, O2 saturation 97% Meds: Medications Acetaminophen (Tylenol) 650 mg PO Q4-6HP PRN PRN Reason: PAIN/FEVER > 101 Last Admin: 01/29/17 09:17 Dose: 650 mg Albuterol/Ipratropium (Duoneb) 3 ml NEB Q4HRT PRN PRN Reason: Shortness Of Breath Or Wheezing Amitriptyline HCl (Elavil) 100 mg PO HS ON LICENSE OF [facility] Last Admin: 01/29/17 20:24 Dose: 100 mg Citalopram Hydrobromide (Celexa) 40 mg PO DAILY ON LICENSE OF [facility] Last Admin: 01/30/17 09:06 Dose: 40 mg Dextrose (Dextrose 50%) 50 ml IV ONCE PRN PRN Reason: ase pe protocol. Dextrose (Dextrose 50%) 0 ml IV UD PRN PRN Reason: Hypoglycemia Diagnostic Test (Pha) (Accu-Chek) 1 each FS Q1H ON LICENSE OF [facility] Last Admin: 01/30/17 10:28 Dose: 1 each Famotidine (Pepcid) 20 mg IV Q12 ON LICENSE OF [facility] Last Admin: 01/30/17 09:06 Dose: 20 mg Heparin Sodium (Porcine) (Heparin) 5,000 unit SQ Q12 ON LICENSE OF [facility] Last Admin: 01/30/17 09:06 Dose: 5,000 unit Heparin Sodium (Porcine) (Heparin Flush) 2 ml IV Q12 ON LICENSE OF [facility] Last Admin: 01/30/17 09:15 Dose: Not Given Hydromorphone HCl (Dilaudid) 1 mg IV Q2HP PRN PRN Reason: Pain Last Admin: 01/30/17 10:29 Dose: 1 mg Hydroxyzine HCl (Atarax) 100 mg PO HSP PRN PRN Reason: Insomnia Piperacillin Sod/Tazobactam (Sod 3.375 gm/ Dextrose) 50 mls @ 100 mls/hr IV Q8H ON LICENSE OF [facility] Last Infusion: 01/30/17 07:15 Dose: Infused Vancomycin HCl 1,500 mg/ (Sodium Chloride) 500 mls @ 333.3 mls/hr IV Q12H ON LICENSE OF [facility] Last Infusion: 01/30/17 07:15 Dose: Infused Potassium Phosphate 20 meq/ (Dextrose/Sodium Chloride) 1,004.5455 mls @ 150 mls /hr IV .Q6H42M ON LICENSE OF [facility] Last Admin: 01/30/17 08:19 Dose: 150 mls/hr Insulin Human Regular 50 unit/ (Sodium Chloride) 100 mls @ 4 mls/hr IV Q24H [facility] ; 2 UNIT/HR PRN Reason: Protocol Insulin Glargine (Lantus) 20 unit SQ BID ON LICENSE OF [facility] Last Admin: 01/30/17 09:06 Dose: 20 unit Naloxone HCl (Narcan) 0.1 mg IV Q2MIN PRN PRN Reason: Opiate Reversal Ondansetron HCl (Zofran) 4 mg IV Q4-6HP PRN PRN Reason: Nausea And Vomiting Potassium/Phosphorus/Sodium (Neutra Phos) 2 packet PO BID ON LICENSE OF [facility] Last Admin: 01/30/17 09:06 Dose: 2 packet Sodium Chloride (Saline Flush) 10 ml IV Q8 ON LICENSE OF [facility] Last Admin: 01/30/17 05:23 Dose: 10 ml Sodium Chloride (Saline Flush) 10 ml IV UD PRN PRN Reason: FLUSH Vancomycin HCl (Vancomycin Per Pharmacy) 1 order IV UD [facility] - ABG Interpretation ABG results: 01/26/17 01/26/17 01/27/17 18:08 21:50 00:10 ABG Methemoglobin 0.3 L 0.3 L 0.3 L VBG pH 7.21 L 7.18 L* 7.27 L VBG pCO2 29.0 L 39.7 L 30.1 L VBG pO2 66 H 45 H 145 H VBG HCO3 11.4 L 14.6 L 13.6 L VBG Total CO2 12.3 L 15.8 L 14.5 L VBG O2 Saturation 85.2 H 72.6 H 95.6 H VBG Base Excess -15.0 L -13.0 L -12.0 L 01/27/17 01/27/17 01/27/17 05:19 08:30 16:00 ABG Methemoglobin 0.3 L 0.3 L 0.3 L VBG pH 7.24 L 7.23 L 7.21 L VBG pCO2 32.8 L 26.6 L 39.8 L VBG pO2 46 H 46 H 60 H VBG HCO3 13.8 L 10.9 L* 15.7 L VBG Total CO2 14.8 L 11.7 L 16.9 L VBG O2 Saturation 77.5 H 77.2 H 83.4 H VBG Base Excess -12.4 L -15.1 L -11.4 L 01/29/17 10:05 ABG Methemoglobin 0.3 L VBG pH 7.16 L* VBG pCO2 24.5 L VBG pO2 152 H VBG HCO3 8.5 L* VBG Total CO2 9.2 L* VBG O2 Saturation 95.1 H VBG Base Excess -18.6 L Medical - PN: A/P - Time Spent With Patient Total time spent is greater than 50% in coordination of care (as documented) at patient's floor/unit and/or counseling patient: Greater than 35 minutes - Narrative A/P Narrative: #1. Renal/endocrine. Patient presents with severe acidosis related to DKA. Acidosis is slowly improving. Twice daily Lantus was added back yesterday. Patient continues on insulin drip. D5 is given to keep glucose up, while we await resolution of the acidosis. -Patient was "starving" , so oral diet was reinstituted. He otherwise seems to be feeling okay. -Calcium continues low, so will be replaced. -Phosphorus is also low, so is being replaced orally. -I discussed with the patient in some detail today how dangerous it is to let himself run out of insulin, and that DKA can be fatal. He promises to go back to checking his blood sugar at least daily, and to let someone know if he is having trouble accessing his diabetes medications. 2. Osteomyelitis of the left foot/toes. Status post amputation and debridement. -Final cultures are still pending. Continue vancomycin and Zosyn. -Patient is being followed by Dr. Fletcher of podiatry. 3. Pain. Continue as needed Tylenol, Dilaudid, amitriptyline. 4. Depression. Continue amitriptyline, Celexa. 5. GI. Pepcid for GI prophylaxis. 6. Atarax as needed for insomnia. 7. CODE STATUS: Full code. 8. DVT prophylaxis: Subcu heparin. Approximately 40 minutes has been spent so far today, reviewing patient's chart and test results, adjusting insulin and other medications, interviewing and examining him, reviewing plan of care with staff, and writing orders. Medical - PN: Qual - VTE Deep Vein Thrombosis/Pulmonary Embolism Present on Admission: No
[2017-01-30] MEDS ORDERED: INSULIN REGULAR, HUMAN 50 UNIT in 0.9 % SODIUM CHLORIDE 99.5 ML IV SCH ×2 (11:00→15:00)
[2017-01-30 12:07] LABS: Ionized Calcium 1.11 mmol/L (1.16-1.32)
[2017-01-30 12:20] LABS: Blood Urea Nitrogen 6 mg/dl (6-20)
[2017-01-30] MEDS ORDERED: CALCIUM GLUCONATE 4.65 MEQ in DEXTROSE 5% IN WATER 50 ML IV ONE (17:40)
[2017-01-30 19:37] LABS: Ionized Calcium 1.15 mmol/L (1.16-1.32)
[2017-01-30 19:51] LABS: Blood Urea Nitrogen 6 mg/dl (6-20)
[2017-01-30 19:52] LABS: Blood Urea Nitrogen 6 mg/dl (6-20)
[2017-01-30 19:54] LABS: Ionized Calcium 1.19 mmol/L (1.16-1.32)
[2017-01-30] MEDS ORDERED: DEXTROSE 50% 50 ML VIAL IV PRN (20:28)
[2017-01-30] MEDS: INSULIN LISPRO 1 UNIT/0.01 ML UNIT SQ SCH (21:36)
[2017-01-30] MEDS: POTASSIUM CHLORIDE 20 MEQ in 0.45 % SODIUM CHLORIDE 1,000 ML IV SCH (21:37)
[2017-01-30] MEDS: AMITRIPTYLINE 25 MG TABLET PO SCH (21:39)
[2017-01-30] MEDS ORDERED: POTASSIUM CHLORIDE 20 MEQ/10 ML VIAL IV ONE (21:39)
[2017-01-31] MEDS: HYDROmorphone 2 MG/ML SYRINGE IV PRN ×4 (02:16→20:21)
[2017-01-31 02:30] LABS: Ionized Calcium 1.19 mmol/L (1.16-1.32)
[2017-01-31 02:55] LABS: Blood Urea Nitrogen 8 mg/dl (6-20)
[2017-01-31] MEDS: VANCOMYCIN 1,500 MG in 0.9 % SODIUM CHLORIDE 500 ML IV SCH ×2 (04:07→16:08)
[2017-01-31] MEDS: PIPERACILLIN SODIUM/TAZOBACTAM 3.375 GM in DEXTROSE 5% IN WATER 50 ML IV SCH (05:30)
[2017-01-31] MEDS: 0.9 % SODIUM CHLORIDE 10 ML SYRINGE IV SCH ×3 (05:31→20:56)
[2017-01-31 05:32] LABS: Basophils # (Auto) 0 K/mcL (0.0-0.3); Basophils % (Auto) 0.4 % (0.0-2.0); Eosinophils # (Auto) 0.2 K/mcL (0.0-0.7); Eosinophils % (Auto) 2.3 % (0.0-7.0); Lymphocytes # (Auto) 1.4 K/mcL (1.5-4.8); Lymphocytes % (Auto) 20.7 % (15.5-49.0); Mean Cell Volume 86.4 fL (80.0-100.0); Mean Corpuscular HGB Conc 34.7 g/dL (31.0-36.0); Monocytes % (Auto) 14.6 % (1.0-12.0); Platelet Count 239 K/mcL (140-440); RBC 3.62 M/mcL (4.50-5.90)
[2017-01-31 05:46] LABS: ALT/SGPT 25 U/l (0-40); Albumin 2.4 gm/dL (3.2-5.2); Albumin/Globulin Ratio 0.7 (1.0-2.3); Alkaline Phosphatase 63 U/L (39-117); Bilirubin,Direct < 0.2 mg/dL (0.0-0.3); Blood Urea Nitrogen 8 mg/dl (6-20); Gamma Glutamyl Transpeptidase 73 U/L (8-61); Magnesium 1.8 mg/dL (1.6-2.5); Uric Acid 2.8 mg/dL (2.5-8.0)
[2017-01-31] MEDS: INSULIN LISPRO 1 UNIT/0.01 ML UNIT SQ SCH ×4 (07:39→20:24)
[2017-01-31] MEDS: INSULIN GLARGINE, HUMAN 1 UNIT/0.01 ML SQ SCH ×2 (07:39→20:22)
--- NOTE | 2017-01-31 08:10 | Orthopedic Progress Note ---
Subjective Patient information: Note initiated : 01/31/17 at 8:07 am Service Date, if different from initiated Date: [] Patient: Gregory Garcia 46 y/o M admitted on 01/26/17 for Inf L Foot, L Flank Pain/Diabetic Ketoacidosis. Chief Complaint: [] Principal diagnosis: left foot wound Interval history: No major foot issues past 24 hours. Only complains of a persistent throbbing from the foot. Pertinent ROS: No fever, chills, nausea or vomiting. Objective Vital signs: Vital Signs Temp Pulse Pulse Resp BP BP BP 01/31/17 06:01 15 117/79 01/31/17 04:07 12 01/31/17 03:25 98.6 F 14 142/88 01/31/17 02:00 14 161/95 01/31/17 00:03 18 160/93 01/30/17 22:00 16 177/97 01/30/17 20:02 100.0 F H 16 181/90 01/30/17 16:33 98.2 F 82 18 01/30/17 15:53 170/91 01/30/17 14:11 166/92 01/30/17 12:30 90 173/93 01/30/17 12:00 98.8 F 90 20 173/93 01/30/17 11:11 154/90 01/30/17 10:00 99.2 F H 20 154/90 Pulse Ox 01/31/17 06:01 98 01/31/17 04:07 01/31/17 03:25 97 01/31/17 02:00 01/31/17 00:03 98 01/30/17 22:00 98 01/30/17 20:02 98 01/30/17 16:33 100 01/30/17 15:53 01/30/17 14:11 01/30/17 12:30 100 01/30/17 12:00 100 01/30/17 11:11 01/30/17 10:00 96 Intake and Output 01/30/17 01/31/17 01/31/17 21:59 05:59 13:59 Intake Total 3054.5455 / 3054.5455 946 / 946 550 / 550 Output Total 2900 / 2900 2250 / 2250 Balance 154.5455 / 154.5455 -1304 / -1304 550 / 550 Intake: IV 1614.5455 / 1614.5455 196 / 196 550 / 550 Calcium Gluconate 4.65 60 / 60 Meq In Dextrose 5% in Water 50 ml @ 100 mls/hr IV ONCE ONE Rx#:[id number] Zosyn 3.375 gm In 50 / 50 50 / 50 50 / 50 Dextrose 5% in Water 50 ml @ 100 mls/hr IV Q8H [facility] Rx#:[id number] Potassium Phosphate 20 1004.5455 / 1004.5455 Meq In Dextrose 5%-1/2Ns IV Solution 1,000 ml @ 150 mls/hr IV .Q6H42M [facility] Rx#:[id number] Vancomycin 1,500 mg In 500 / 500 500 / 500 Sodium Chloride 0.9% 500 ml @ 333.3 mls/hr IV Q12H [facility] Rx#:[id number] Oral 1440 / 1440 750 / 750 Output: Urine Catheter Amount 400 / 400 Void Amount 2900 / 2900 1850 / 1850 Other: Meal Dinner Percent of Meal Consumed 100% Feeding Ability Independent Weight 220 lb 3.2 oz Intake & Output: Intake & Output 01/30/17 01/31/17 01/31/17 21:59 05:59 13:59 Intake Total 3054.5455 / 3054.5455 946 / 946 550 / 550 Output Total 2900 / 2900 2250 / 2250 Balance 154.5455 / 154.5455 -1304 / -1304 550 / 550 Weight 220 lb 3.2 oz Intake: IV 1614.5455 / 1614.5455 196 / 196 550 / 550 Calcium Gluconate 4.65 60 / 60 Meq In Dextrose 5% in Water 50 ml @ 100 mls/hr IV ONCE ONE Rx#:[id number] Zosyn 3.375 gm In 50 / 50 50 / 50 50 / 50 Dextrose 5% in Water 50 ml @ 100 mls/hr IV Q8H [facility] Rx#:[id number] Potassium Phosphate 20 1004.5455 / 1004.5455 Meq In Dextrose 5%-1/2Ns IV Solution 1,000 ml @ 150 mls/hr IV .Q6H42M [facility] Rx#:[id number] Vancomycin 1,500 mg In 500 / 500 500 / 500 Sodium Chloride 0.9% 500 ml @ 333.3 mls/hr IV Q12H [facility] Rx#:[id number] Oral 1440 / 1440 750 / 750 Output: Urine Catheter Amount 400 / 400 Void Amount 2900 / 2900 1850 / 1850 Other: Meal Dinner Percent of Meal Consumed 100% Feeding Ability Independent Incision: Yes healing, Yes swollen, Yes clean and dry Dressing: Yes dry, Yes intact Weight bearing status: non Neurological exam IM: Yes motor sensory deficit Extremities exam IM: Yes joint swelling, Yes pedal edema, Yes tenderness - Periperhal Pulses Peripheral pulses: 1+: dorsalis pedis (L), dorsalis pedis (R), posterior tibialis (L), posterior tibialis (R) - Labs CBC & BMP: 01/31/17 03:45 01/31/17 03:45 Labs: 01/31/17 01/30/17 01/29/17 03:45 04:00 03:38 Hgb 10.9 L 11.0 L 11.7 L Hct 31.3 L 32.8 L 35.3 L 01/28/17 01/28/17 01/27/17 04:38 03:00 05:19 Hgb 10.9 L Not Reportable 13.0 L Hct 32.5 L Not Reportable 38.5 L Assessment and Plan (1) Diabetic ulcer of toe associated with diabetes mellitus due to underlying condition Status: Acute Priority: High Comment: 01/31: S/P day 3 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 Staph. Aureus growth culutured in high quantity. No resistance on the sensitivity report. Dressings changed as prior today and packing removed. Keeping RAVI wrap looser to help with possible contribution to throbbing sensation. 01/30: Improvment in symptoms and appearance. He does not have any major questions. He was comfortable with the appearance of his ampuation and thought it would look worse than it did. He does not have any major complaints at this time. He is optimistic about the healing potential of his foot. - Dressings changed today: xeroform, kerlix and RAVI (light) - Continue IVABX - Change packing on 01/31/17 7/: patient feels a little better after having had the procedure last night. He understood all that was done. He understands that he will likely be in the hospital for a short period of time to aid in his recovery prior to being discharged and followed up as outpatient. 8: due to patient's worsening conditions is therefore necessary to proceed with incision and drainage and partially rotation of the left hallux. He will be on IV antibiotics for 6 weeks following this procedure. There will be cultures taken of the abscess of the left midfoot and also on cultures and pathological analysis of the left distal phalanx. There'll be a bone portion of the proximal phalanx sent for clear margin analysis. He understands he is to remain nonweightbearing left foot and refuses catheter for urination. He will likely remain in hospital post procedure. the hallux incision will likely be closed if the area appears to be free of infection however the midfoot will be packed open with partial closure after the incision and drainage is complete this will be closed at a later date. 7/7continue IV antibiotic therapy. He can become more medically stable prior to MRI. The incision and drainage with possible bone excision will be performed after the MRI to rule out ostium myelitis of the second metatarsal and /or first ray of the left foot. Podiatry will continue follow on a daily basis for this issue Qualifiers: Laterality: left Non-pressure ulcer stage: with fat layer exposed Qualified Code(s): E08.621 - Diabetes mellitus due to underlying condition with foot ulcer; L97.522 - Non-pressure chronic ulcer of other part of left foot with fat layer exposed (2) Diabetic nephropathy Status: Chronic Priority: High Qualifiers: Diabetes mellitus type: type 2 Qualified Code(s): E11.21 - Type 2 diabetes mellitus with diabetic nephropathy (3) Hypokalemia Status: Acute (4) Iron deficiency anemia Status: Acute Qualifiers: Iron deficiency anemia type: unspecified iron deficiency Qualified Code(s) : D50.9 - Iron deficiency anemia, unspecified (5) Acid reflux Status: Chronic (6) Arthritis Status: Chronic (7) DMII (diabetes mellitus, type 2) Status: Chronic Qualifiers: Diabetes mellitus complication status: with neurologic complications Diabetes mellitus complication detail: with polyneuropathy Diabetes mellitus usp insulin use: with usp use Qualified Code(s): E11.42 - Type 2 diabetes mellitus with diabetic polyneuropathy (8) Daytime sleepiness Status: Chronic (9) Depression Status: Chronic Qualifiers: Depression Type: major depressive disorder Major depression recurrence: recurrent Active/Remission status: currently active Major depression episode severity: moderate Qualified Code(s): F33.1 - Major depressive disorder, recurrent, moderate (10) Fatigue Status: Chronic (11) History of tobacco use Status: Chronic (12) Hypertension, essential Status: Chronic (13) Insomnia Status: Chronic Qualifiers: Insomnia type: primary Qualified Code(s): F51.01 - Primary insomnia (14) Peripheral neuropathy Status: Chronic Qualifiers: Peripheral neuropathy type: polyneuropathy, unspecified Qualified Code(s): G62.9 - Polyneuropathy, unspecified
[2017-01-31] MEDS: CITALOPRAM 20 MG TABLET PO SCH (08:31)
[2017-01-31] MEDS: NEUTRA PHOS 1 PACKET PO SCH (08:31)
[2017-01-31] MEDS: FAMOTIDINE/PF 20 MG/2 ML VIAL IV SCH (08:31)
[2017-01-31] MEDS: ACETAMINOPHEN 325 MG TABLET PO PRN (08:31)
[2017-01-31] MEDS: HEPARIN 5,000 UNIT/ML VIAL SQ SCH ×2 (08:32→20:21)
[2017-01-31] MEDS: POTASSIUM CHLORIDE 20 MEQ in 0.45 % SODIUM CHLORIDE 1,000 ML IV SCH (08:32)
[2017-01-31] MEDS ORDERED: ACETAMINOPHEN 325 MG TABLET PO PRN (11:23)
[2017-01-31] MEDS ORDERED: NALOXONE HCL 0.4 MG/ML VIAL IV PRN (11:23)
[2017-01-31] MEDS ORDERED: DEXTROSE 50% 50 ML VIAL IV PRN (11:23)
[2017-01-31] MEDS ORDERED: VANCOMYCIN PER PHARMACY IV SCH (11:23)
[2017-01-31] MEDS ORDERED: ONDANSETRON 4 MG/2 ML VIAL IV PRN (11:23)
[2017-01-31] MEDS ORDERED: 0.9 % SODIUM CHLORIDE 10 ML SYRINGE IV PRN (11:23)
--- NOTE | 2017-01-31 11:26 | Internal Med Progress Note ---
Medical - PN: Subj Patient information: Note initiated : 01/31/17 at 11:26 am Patient: Gregory Garcia 46 y/o M admitted on 01/26/17 for Inf L Foot, L Flank Pain/Diabetic Ketoacidosis. Interval history: January 26, 2017: History of present illness: Mr. Garcia is a 46 year old male with h/o DM and other medical issues, chr right toe wound, presented to the ER with complaints of pain in the right foot for 2 days. The patient notes he has had a chr wound from diabetes on the right toe, this has been a non healing wound and he follows with Dr Pan madrigal lokie engineer who has been working with him. The patient fell and injured his right side body and injured the right toe on january 24. After this the patient noted increased redness and swelling of the right toe, the patient notes that the redness start ed to spread, and the pain worsened to a point where he could not lay foot on the ground. Pain throbbing in nature, worse with activity better with rest, Non radiating. he therefore presented to the ER . In the ER the patient was noted to have elevated wbc, high k, low sodium elevate glucose > 300, high gap, low bicarb. Patient had elevaetd betahydroxybutyrate, elevated anion gap, and ph of 7.2. He was admitted to the hospital with diagnosis of acute DKA and Acute osteomyelitis. The patient notes that around 11 of january he has not taken any of his medications including insulin, as his insurance ran out. 01/27: Pt seen examined, no acute overnight events, doing well, feels very thirsty and wants to drink something , partched. patient albs reviwed, still in DKA needing IV fluids and iv insulin. still has some chills and fever. 01/28: patient seen examined, overnight his ag was elevated a bit, but responded to fluids, hemodynamically stable, wanting to eat desperately, switched to sq insulin and sliding scacle. the left foot is getting worse, there is now an area pus seen on the left foot base, pt is significant pain from same. his DKA is tenuous and he may return in DKA should his infection spread, he has had some fever overnight, and the redness in the foot is spreading MRI this am to evaluate if OM and then discuss with Podiatry for possible intervention today, Source control will help significantly, for his DKA as well as his severe pain. 01/29 Pt seen examined, he does not report any new conditions, feels that the anesthesia from the leg is wearing off, and is asking for food. The patient is also feeling thirsty He is s/o left toe amputation and Incision adn Drainage of abscess yesterday evening, Was on IV fluids and NPO overnight This AM his Anion gap is backup, his Beta hydroxybutyrate is elevated and bicarb is low again. He will continue NPO status, ok to drink water IV insulin drip resumed , 4L saline bolus and d5 half NS drip restarted, will recheck labs again this afternoon. January 30: Today, the patient notes that his right foot is really throbbing this morning. He tells me today that he really was not checking his blood sugars at all at home, even after he ran out of insulin due to losing his insurance. He says he was celebrating January out of town. He had a wound that he and podiatry had been working on for quite a while and it was healing, but he fell off a step and ripped the scab off the wound, and then walked around in a dirty sock for a day or so before coming in. -He says he was unaware that he could become acidotic, and that that could be a threat to his life. Glucoses are currently ranging from 149-256. Serum bicarb has remained rather stubborn, but is up to 17 as of 1030 this morning. He is now on both twice daily Lantus plus low-dose insulin drip. -Maximum temperature over the last 24 hours was 99.9 this morning. -Blood pressures continue to run a little high, ranging from 150s-160s over 90. Otherwise, he denies headaches or dizziness, sore throat or cough, chest pain or palpitations, shortness of breath or wheezing, abdominal pain, nausea or vomiting, diarrhea, dysuria. January 31: Today, the patient says he is feeling better. The pain in his foot is better controlled. He believes his insurance has been reinstated, so is now questioning when he could perhaps moved to outpatient treatment. Dr. Fletcher of podiatry saw him today, and thinks we are getting close to the time when the patient could move to outpatient care. So far, the wound culture is growing only pansensitive staph. -Anion gap and serum bicarb have returned to normal overnight, and insulin drip was discontinued today. Accu-Cheks are currently ranging from 159-183. -Is complaining about ongoing swelling, especially of his legs, and that that is quite uncomfortable. He is quite ahead on intake of fluids, at about 13 L. Otherwise, the patient denies fever or chills, chest pain or palpitations, shortness of breath, abdominal pain, nausea or vomiting, diarrhea or constipation. - Constitutional Vitals: Vital Signs Temp Pulse Resp BP Pulse Ox 98.7 F 82 18 158/131 98 01/31/17 08:01 01/30/17 16:33 01/31/17 08:01 01/31/17 08:01 01/31/17 08:01 Period Temp Pulse Resp BP Sys/Dinh Pulse Ox Last 24 Hr 98.2 F-100.0 F 82-90 12-20 117-181/79-131 97-100 Intake and Output 01/30/17 01/31/17 01/31/17 21:59 05:59 13:59 Intake Total 3054.5455 / 3054.5455 946 / 946 550 / 550 Output Total 2900 / 2900 2250 / 2250 450 / 450 Balance 154.5455 / 154.5455 -1304 / -1304 100 / 100 Weight 220 lb 3.2 oz Intake & Output: Intake & Output 01/30/17 01/31/17 01/31/17 21:59 05:59 13:59 Intake Total 3054.5455 / 3054.5455 946 / 946 550 / 550 Output Total 2900 / 2900 2250 / 2250 450 / 450 Balance 154.5455 / 154.5455 -1304 / -1304 100 / 100 Weight 220 lb 3.2 oz Intake: IV 1614.5455 / 1614.5455 196 / 196 550 / 550 Calcium Gluconate 4.65 60 / 60 Meq In Dextrose 5% in Water 50 ml @ 100 mls/hr IV ONCE ONE Rx#:[id number] Zosyn 3.375 gm In 50 / 50 50 / 50 50 / 50 Dextrose 5% in Water 50 ml @ 100 mls/hr IV Q8H [facility] Rx#:[id number] Potassium Phosphate 20 1004.5455 / 1004.5455 Meq In Dextrose 5%-1/2Ns IV Solution 1,000 ml @ 150 mls/hr IV .[id number] [facility] Rx#:[id number] Vancomycin 1,500 mg In 500 / 500 500 / 500 Sodium Chloride 0.9% 500 ml @ 333.3 mls/hr IV Q12H [facility] Rx#:[id number] Oral 1440 / 1440 750 / 750 Output: Urine Catheter Amount 400 / 400 Void Amount 2900 / 2900 1850 / 1850 450 / 450 Other: Meal Dinner Percent of Meal Consumed 100% Feeding Ability Independent On exam, he does not appear to be in any distress. Neck is supple without obvious lymphadenopathy or JVD. Cardiac exam shows regular rate and rhythm. Lungs are clear to auscultation after coughing clears a few crackles at the bases. Abdomen is soft and nontender. Right lower extremity appears normal. Left foot is heavily bandaged. The leg is still fairly edematous up to the knee. The dressing is not undone. Neurologic exam is not tested in detail but is grossly nonfocal. Medical - PN: Obj Da - Labs CBC & Chem 7: 01/31/17 03:45 01/31/17 03:45 Labs: Abnormal Lab Results 01/31/17 01/31/17 01/30/17 03:45 03:45 22:25 RBC 3.62 L Hgb 10.9 L Hct 31.3 L RDW 15.0 H Gran % Lymph % (Auto) Nye % (Auto) 14.6 H Lymph # (Auto) 1.4 L Nye # (Auto) 1.0 H ESR ABG Methemoglobin VBG pH VBG pCO2 VBG pO2 VBG HCO3 VBG Total CO2 VBG O2 Saturation VBG Base Excess Carboxyhemoglobin Total Hemoglobin Sodium Carbon Dioxide Anion Gap Glucose 181 H 184 H Calcium 8.2 L Ionized Calcium Carrillo Phosphorus GGT 73 H C-Reactive Protein Total Protein 5.8 L Albumin 2.4 L Albumin/Globulin Ratio 0.7 L Beta-Hydroxybutyrate 01/30/17 01/30/17 01/30/17 18:37 15:22 10:23 RBC Hgb Hct RDW Gran % Lymph % (Auto) Nye % (Auto) Lymph # (Auto) Nye # (Auto) ESR ABG Methemoglobin VBG pH VBG pCO2 VBG pO2 VBG HCO3 VBG Total CO2 VBG O2 Saturation VBG Base Excess Carboxyhemoglobin Total Hemoglobin Sodium 130 L 132 L Carbon Dioxide 20 L 17 L Anion Gap Glucose 183 H 206 H 251 H Calcium Ionized Calcium Carrillo 1.15 L 1.11 L Phosphorus 1.9 L 1.7 L 1.2 L GGT C-Reactive Protein Total Protein Albumin Albumin/Globulin Ratio Beta-Hydroxybutyrate 01/30/17 01/30/17 01/29/17 04:00 04:00 21:00 RBC 3.71 L Hgb 11.0 L Hct 32.8 L RDW 15.8 H Gran % Lymph % (Auto) Nye % (Auto) Lymph # (Auto) 1.2 L Nye # (Auto) ESR 82 H ABG Methemoglobin VBG pH VBG pCO2 VBG pO2 VBG HCO3 VBG Total CO2 VBG O2 Saturation VBG Base Excess Carboxyhemoglobin Total Hemoglobin Sodium 132 L Carbon Dioxide 16 L 13 L Anion Gap Glucose 180 H 234 H Calcium 7.9 L 7.4 L Ionized Calcium Carrillo Phosphorus 1.2 L GGT 78 H C-Reactive Protein 4.8 H Total Protein Albumin 2.7 L Albumin/Globulin Ratio 0.8 L Beta-Hydroxybutyrate 01/29/17 01/29/17 01/29/17 17:12 12:47 10:05 RBC Hgb Hct RDW Gran % Lymph % (Auto) Nye % (Auto) Lymph # (Auto) Nye # (Auto) ESR ABG Methemoglobin 0.3 L VBG pH 7.16 L* VBG pCO2 24.5 L VBG pO2 152 H VBG HCO3 8.5 L* VBG Total CO2 9.2 L* VBG O2 Saturation 95.1 H VBG Base Excess -18.6 L Carboxyhemoglobin 3.4 H Total Hemoglobin 11.8 L Sodium Carbon Dioxide 10 L* 11 L Anion Gap 19.0 H 20.0 H Glucose 262 H 173 H Calcium 7.1 L Ionized Calcium Carrillo 1.12 L Phosphorus 1.8 L GGT C-Reactive Protein Total Protein Albumin Albumin/Globulin Ratio Beta-Hydroxybutyrate 01/29/17 01/29/17 01/29/17 08:37 08:37 03:38 RBC Hgb Hct RDW Gran % Lymph % (Auto) Nye % (Auto) Lymph # (Auto) Nye # (Auto) ESR ABG Methemoglobin VBG pH VBG pCO2 VBG pO2 VBG HCO3 VBG Total CO2 VBG O2 Saturation VBG Base Excess Carboxyhemoglobin Total Hemoglobin Sodium Carbon Dioxide 10 L* 11 L Anion Gap 23.0 H 23.0 H Glucose 192 H 197 H Calcium 7.8 L 8.0 L Ionized Calcium Carrillo Phosphorus GGT 78 H C-Reactive Protein Total Protein Albumin 2.7 L Albumin/Globulin Ratio 0.7 L Beta-Hydroxybutyrate 6.69 H 01/29/17 03:38 RBC 3.98 L Hgb 11.7 L Hct 35.3 L RDW 15.9 H Gran % 90.0 H Lymph % (Auto) 6.8 L Nye % (Auto) Lymph # (Auto) 0.5 L Nye # (Auto) ESR ABG Methemoglobin VBG pH VBG pCO2 VBG pO2 VBG HCO3 VBG Total CO2 VBG O2 Saturation VBG Base Excess Carboxyhemoglobin Total Hemoglobin Sodium Carbon Dioxide Anion Gap Glucose Calcium Ionized Calcium Carrillo Phosphorus GGT C-Reactive Protein Total Protein Albumin Albumin/Globulin Ratio Beta-Hydroxybutyrate January 29: EKG shows normal sinus rhythm at a rate of 94, with left axis deviation, right bundle branch block. January 28: Wound culture: Is growing staph aureus, --pansensitive to all antibiotics tested. However, cultures were obtained 2 days after admission, the patient had been on IV antibiotics for at least 24 hours at that time. Gram stain showed moderate to many polys and red blood cells, and a few gram- positive cocci in pairs. MRI of the left foot shows bone marrow edema in the left first distal phalanx consistent with osteomyelitis. Mild bone marrow edema in the left first proximal phalanx with possible osteomyelitis. Erosive changes in the distal left second metatarsal without bone marrow edema, probably chronic. January 27: Chest x-ray shows a right-sided PICC line with its tip in the right atrium. Lungs are clear. January 26: Nasal MRSA screen is positive. Blood cultures are negative so far. ABG on room air: PH 7.23, PCO2 22, PO2 110, bicarb 9.2, O2 saturation 97% Venous pH 7.18, PCO2 39, PO2 45, O2 saturation 72% CBC: White blood cell count 14,300, 86% neutrophils Meds: Medications Acetaminophen (Tylenol) 650 mg PO Q4-6HP PRN PRN Reason: PAIN/FEVER > 101 Amitriptyline HCl (Elavil) 100 mg PO HS [facility] Citalopram Hydrobromide (Celexa) 40 mg PO DAILY [facility] Dextrose (Dextrose 50%) 0 ml IV UD PRN PRN Reason: Hypoglycemia Diagnostic Test (Pha) (Accu-Chek) 1 each FS ACHS [facility] Heparin Sodium (Porcine) (Heparin) 5,000 unit SQ Q12 [facility] Heparin Sodium (Porcine) (Heparin Flush) 2 ml IV Q12 [facility] Hydromorphone HCl (Dilaudid) 1 mg IV Q2HP PRN PRN Reason: Pain Hydroxyzine HCl (Atarax) 100 mg PO HSP PRN PRN Reason: Insomnia Piperacillin Sod/Tazobactam (Sod 3.375 gm/ Dextrose) 50 mls @ 100 mls/hr IV Q8H [facility] Vancomycin HCl 1,500 mg/ (Sodium Chloride) 500 mls @ 333.3 mls/hr IV Q12H [facility] Insulin Glargine (Lantus) 25 unit SQ BID [facility] Insulin Human Lispro (Humalog) 0 unit SQ ACHS [facility] PRN Reason: Protocol Naloxone HCl (Narcan) 0.1 mg IV Q2MIN PRN PRN Reason: Opiate Reversal Ondansetron HCl (Zofran) 4 mg IV Q4-6HP PRN PRN Reason: Nausea And Vomiting Potassium/Phosphorus/Sodium (Neutra Phos) 1 packet PO BID [facility] Sodium Chloride (Saline Flush) 10 ml IV UD PRN PRN Reason: FLUSH Sodium Chloride (Saline Flush) 10 ml IV Q8 [facility] Vancomycin HCl (Vancomycin Per Pharmacy) 1 order IV UD [facility] - ABG Interpretation ABG results: 01/26/17 01/26/17 01/27/17 18:08 21:50 00:10 ABG Methemoglobin 0.3 L 0.3 L 0.3 L VBG pH 7.21 L 7.18 L* 7.27 L VBG pCO2 29.0 L 39.7 L 30.1 L VBG pO2 66 H 45 H 145 H VBG HCO3 11.4 L 14.6 L 13.6 L VBG Total CO2 12.3 L 15.8 L 14.5 L VBG O2 Saturation 85.2 H 72.6 H 95.6 H VBG Base Excess -15.0 L -13.0 L -12.0 L 01/27/17 01/27/17 01/27/17 05:19 08:30 16:00 ABG Methemoglobin 0.3 L 0.3 L 0.3 L VBG pH 7.24 L 7.23 L 7.21 L VBG pCO2 32.8 L 26.6 L 39.8 L VBG pO2 46 H 46 H 60 H VBG HCO3 13.8 L 10.9 L* 15.7 L VBG Total CO2 14.8 L 11.7 L 16.9 L VBG O2 Saturation 77.5 H 77.2 H 83.4 H VBG Base Excess -12.4 L -15.1 L -11.4 L 01/29/17 10:05 ABG Methemoglobin 0.3 L VBG pH 7.16 L* VBG pCO2 24.5 L VBG pO2 152 H VBG HCO3 8.5 L* VBG Total CO2 9.2 L* VBG O2 Saturation 95.1 H VBG Base Excess -18.6 L Medical - PN: A/P - Time Spent With Patient Total time spent is greater than 50% in coordination of care (as documented) at patient's floor/unit and/or counseling patient: Greater than 35 minutes - Narrative A/P Narrative: #1. Renal/endocrine. -This patient presented with diabetic ketoacidosis, severe. He was somewhat slow to respond to treatment with IV insulin drip and IV fluids, but overnight serum bicarb has returned to normal, and anion gap is also normal now. -Insulin drip was stopped, and patient is now on twice daily Lantus plus before meals and at bedtime sliding scale. He is tolerating a diabetic diet just fine. -Resume low-dose metformin, and titrate as tolerated. Empagliflozin is still on hold. -Calcium now corrects to normal, regarding low albumin. Phosphorus is back to normal, with oral replacement. -I have discussed with the patient in some detail today how dangerous it is to let himself run out of insulin, and that DKA can be fatal. He promises to go back to checking his blood sugar at least daily, and to let someone know if he is having trouble accessing his diabetes medications. -Continue amitriptyline for diabetic peripheral neuropathy. 2. Osteomyelitis of the left foot/toes. Status post amputation and debridement. -Cultures so far are growing only pansensitive staph, but the patient had been treated with IV vancomycin and Zosyn prior to the cultures being obtained. I would assume, since this is both a diabetic foot wound and a traumatic wound, that is now status post debridement, that this is a polymicrobial diabetic foot wound. I will plan on continuing broad-spectrum IV antibiotic coverage for at least another week. We can probably business change manager to ertapenem plus vancomycin. Dr. Fletcher feels comfortable with continuing IV antibiotics for a short time, and then switching over to oral antibiotics. I will change Zosyn over to daily ertapenem at this time. Continue vancomycin. If he tolerates this regimen, consider sending him home with IV antibiotics, perhaps tomorrow. -He would need to follow-up in the wound clinic with Dr. Fletcher, in about 2 days. 3. Pain. Continue as needed Tylenol, Dilaudid, amitriptyline. We will plan on changing to oral meds. 4. Depression. Continue amitriptyline, Celexa. Continue amitriptyline and hydroxyzine as needed for sleep issues. 5. GI. -History of GERD. Pepcid for GI prophylaxis. 6. Atarax as needed for insomnia. 7. CODE STATUS: Full code. 8. DVT prophylaxis: Subcu heparin. #9. Patient does have significant edema, and has received a large volume of IV fluids. IV fluids have been discontinued. IV Lasix will be started, to help him diurese. 10. History of hypertension. -Resume Benzapril and Norvasc. Check follow-up labs in the morning. Approximately 40 minutes has been spent so far today, reviewing patient's chart and test results, interviewing and examining him, reviewing plan of care with our multidisciplinary team, reviewing plan of care with Dr. Fletcher of podiatry , changing antibiotics to better suit a home regimen, and writing orders. Medical - PN: Qual - VTE Deep Vein Thrombosis/Pulmonary Embolism Present on Admission: No
[2017-01-31] MEDS ORDERED: PIPERACILLIN SODIUM/TAZOBACTAM 3.375 GM in DEXTROSE 5% IN WATER 50 ML IV SCH (14:00)
[2017-01-31] MEDS ORDERED: FUROSEMIDE 20 MG/2 ML VIAL IV ONE (14:57)
[2017-01-31] MEDS: ERTAPENEM 1 GM in 0.9 % SODIUM CHLORIDE 50 ML IV SCH (16:48)
[2017-01-31] MEDS: metFORMIN 500 MG TABLET PO SCH (17:10)
[2017-01-31] MEDS: FERROUS SULFATE 325 MG TABLET PO SCH (17:10)
[2017-01-31] MEDS ORDERED: AMITRIPTYLINE 25 MG TABLET PO SCH (21:00)
[2017-01-31] MEDS ORDERED: NEUTRA PHOS 1 PACKET PO SCH (21:00)
[2017-01-31] MEDS ORDERED: hydrOXYzine 25 MG TABLET PO PRN ×2 (21:00)
[2017-01-31] MEDS ORDERED: AMITRIPTYLINE 25 MG TABLET PO PRN (21:00)
[2017-02-01] MEDS: HYDROmorphone 2 MG/ML SYRINGE IV PRN ×2 (00:35→09:38)
[2017-02-01] MEDS: VANCOMYCIN 1,500 MG in 0.9 % SODIUM CHLORIDE 500 ML IV SCH (04:05)
[2017-02-01 05:41] LABS: ALT/SGPT 24 U/l (0-40); Albumin 2.4 gm/dL (3.2-5.2); Albumin/Globulin Ratio 0.7 (1.0-2.3); Alkaline Phosphatase 62 U/L (39-117); Bilirubin,Direct < 0.2 mg/dL (0.0-0.3); Blood Urea Nitrogen 10 mg/dl (6-20); Gamma Glutamyl Transpeptidase 64 U/L (8-61); Magnesium 1.7 mg/dL (1.6-2.5); Uric Acid 3.3 mg/dL (2.5-8.0)
[2017-02-01] MEDS: 0.9 % SODIUM CHLORIDE 10 ML SYRINGE IV SCH ×2 (05:44→14:35)
[2017-02-01 05:57] LABS: Basophils # (Auto) 0 K/mcL (0.0-0.3); Basophils % (Auto) 0.3 % (0.0-2.0); Eosinophils # (Auto) 0.2 K/mcL (0.0-0.7); Granulocytes % (Auto) 62.3 % (38.0-78.0); Lymphocytes # (Auto) 1.7 K/mcL (1.5-4.8); Lymphocytes % (Auto) 22.3 % (15.5-49.0); Mean Cell Volume 86.6 fL (80.0-100.0); Mean Corpuscular HGB Conc 34.3 g/dL (31.0-36.0); Mean Corpuscular Hemoglobin 29.7 pg (26.0-34.0); Monocytes # (Auto) 0.9 K/mcL (0.1-0.9); Monocytes % (Auto) 12.1 % (1.0-12.0); Platelet Count 275 K/mcL (140-440); RBC 3.68 M/mcL (4.50-5.90); Red Cell Distribution Width 15.6 % (11.5-14.5)
[2017-02-01] MEDS: FERROUS SULFATE 325 MG TABLET PO SCH ×2 (07:28→12:50)
[2017-02-01] MEDS: metFORMIN 500 MG TABLET PO SCH (07:28)
[2017-02-01] MEDS: INSULIN LISPRO 1 UNIT/0.01 ML UNIT SQ SCH ×2 (07:28→12:49)
[2017-02-01] MEDS ORDERED: FUROSEMIDE 40 MG/4 ML VIAL IV ONE (07:52)
[2017-02-01] MEDS: oxyCODONE/APAP 5/325MG TABLET PO PRN ×2 (08:36→15:47)
[2017-02-01] MEDS ORDERED: amLODIPine 5 MG TABLET PO SCH (09:00)
[2017-02-01] MEDS ORDERED: CITALOPRAM 20 MG TABLET PO SCH ×2 (09:00)
[2017-02-01] MEDS ORDERED: LISINOPRIL 20 MG TABLET PO SCH (09:00)
[2017-02-01] MEDS ORDERED: VITAMIN D3 1,000 UNIT TABLET PO SCH (09:00)
[2017-02-01] MEDS: HEPARIN 5,000 UNIT/ML VIAL SQ SCH (09:18)
[2017-02-01] MEDS: INSULIN GLARGINE, HUMAN 1 UNIT/0.01 ML SQ SCH (09:19)
[2017-02-01] MEDS: ERTAPENEM 1 GM in 0.9 % SODIUM CHLORIDE 50 ML IV SCH (09:19)
--- NOTE | 2017-02-01 09:45 | Orthopedic Progress Note ---
Subjective Patient information: Note initiated : 02/01/17 at 9:38 am Service Date, if different from initiated Date: [] Patient: Gregory Garcia 47 y/o M admitted on 01/26/17 for Inf L Foot, L Flank Pain/Diabetic Ketoacidosis. Chief Complaint: [Left foot pain with infection] Principal diagnosis: left foot wound Interval history: Less pain and discomfort to the foot but some throbbing sensation. Pertinent ROS: no fever, chills, nausea or vomiting. Objective Vital signs: Vital Signs Temp Pulse Resp BP BP Pulse Ox 02/01/17 04:00 97.8 F 74 16 148/98 94 02/01/17 00:00 98.6 F 88 18 167/98 97 01/31/17 20:00 97.8 F 66 18 164/87 97 01/31/17 19:32 72 01/31/17 16:00 98.2 F 72 18 170/100 98 01/31/17 12:00 97.8 F 69 18 151/90 100 Intake and Output 01/31/17 02/01/17 02/01/17 21:59 05:59 13:59 Intake Total 2390 / 2390 1300 / 1300 Output Total 2049 Balance 340 / 340 1300 / 1300 Intake: IV 550 / 550 500 / 500 INVanz 1 GM In Sodium 50 / 50 Chloride 0.9% 50 ml @ 100 mls/hr IV DAILY [facility] Rx#: [id number] Vancomycin 1,500 mg In 500 / 500 500 / 500 Sodium Chloride 0.9% 500 ml @ 333.3 mls/hr IV Q12H [facility] Rx#:[id number] Oral 1840 / 1840 800 / 800 Output: Void Amount 2049 Other: Meal Dinner Percent of Meal Consumed 75% Feeding Ability Independent # Bowel Movements 1 0 Weight 216 lb 8 oz Intake & Output: Intake & Output 01/31/17 02/01/17 02/01/17 21:59 05:59 13:59 Intake Total 2390 / 2390 1300 / 1300 Output Total 2049 Balance 340 / 340 1300 / 1300 Weight 216 lb 8 oz Intake: IV 550 / 550 500 / 500 INVanz 1 GM In Sodium 50 / 50 Chloride 0.9% 50 ml @ 100 mls/hr IV DAILY [facility] Rx#: [id number] Vancomycin 1,500 mg In 500 / 500 500 / 500 Sodium Chloride 0.9% 500 ml @ 333.3 mls/hr IV Q12H [facility] Rx#:[id number] Oral 1840 / 1840 800 / 800 Output: Void Amount 2049 Other: Meal Dinner Percent of Meal Consumed 75% Feeding Ability Independent # Bowel Movements 1 0 Incision: Yes draining, Yes swollen Incision clean and dry: Yes Dressing: Yes intact Weight bearing status: non (use walker / crutches) Extremities exam IM: Yes joint swelling, Yes tenderness, Yes Foot pink and warm - Periperhal Pulses Peripheral pulses: 1+: dorsalis pedis (L), dorsalis pedis (R), posterior tibialis (L), posterior tibialis (R) - Labs CBC & BMP: 02/01/17 04:17 02/01/17 04:17 Labs: 02/01/17 01/31/17 01/30/17 04:17 03:45 04:00 Hgb 10.9 L 10.9 L 11.0 L Hct 31.9 L 31.3 L 32.8 L 01/29/17 01/28/17 01/28/17 03:38 04:38 03:00 Hgb 11.7 L 10.9 L Not Reportable Hct 35.3 L 32.5 L Not Reportable 01/27/17 05:19 Hgb 13.0 L Hct 38.5 L Assessment and Plan (1) Diabetic ulcer of toe associated with diabetes mellitus due to underlying condition Status: Acute Priority: High Comment: 01/31: S/P day 3 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 Staph. Aureus growth culutured in high quantity. No resistance on the sensitivity report. Dressings changed as prior today and packing removed. Keeping RAVI wrap looser to help with possible contribution to throbbing sensation. 01/30: Improvment in symptoms and appearance. He does not have any major questions. He was comfortable with the appearance of his ampuation and thought it would look worse than it did. He does not have any major complaints at this time. He is optimistic about the healing potential of his foot. - Dressings changed today: xeroform, kerlix and RAVI (light) - Continue IVABX - Change packing on 01/31/1701/29: patient feels a little better after having had the procedure last night. He understood all that was done. He understands that he will likely be in the hospital for a short period of time to aid in his recovery prior to being discharged and followed up as outpatient. 8: due to patient's worsening conditions is therefore necessary to proceed with incision and drainage and partially rotation of the left hallux. He will be on IV antibiotics for 6 weeks following this procedure. There will be cultures taken of the abscess of the left midfoot and also on cultures and pathological analysis of the left distal phalanx. There'll be a bone portion of the proximal phalanx sent for clear margin analysis. He understands he is to remain nonweightbearing left foot and refuses catheter for urination. He will likely remain in hospital post procedure. the hallux incision will likely be closed if the area appears to be free of infection however the midfoot will be packed open with partial closure after the incision and drainage is complete this will be closed at a later date. 7/7continue IV antibiotic therapy. He can become more medically stable prior to MRI. The incision and drainage with possible bone excision will be performed after the MRI to rule out ostium myelitis of the second metatarsal and /or first ray of the left foot. Podiatry will continue follow on a daily basis for this issue Qualifiers: Laterality: left Non-pressure ulcer stage: with fat layer exposed Qualified Code(s): E08.621 - Diabetes mellitus due to underlying condition with foot ulcer; L97.522 - Non-pressure chronic ulcer of other part of left foot with fat layer exposed (2) Diabetic nephropathy Status: Chronic Priority: High Qualifiers: Diabetes mellitus type: type 2 Qualified Code(s): E11.21 - Type 2 diabetes mellitus with diabetic nephropathy (3) Hypokalemia Status: Acute (4) Iron deficiency anemia Status: Acute Qualifiers: Iron deficiency anemia type: unspecified iron deficiency Qualified Code(s) : D50.9 - Iron deficiency anemia, unspecified (5) Acid reflux Status: Chronic (6) Arthritis Status: Chronic (7) DMII (diabetes mellitus, type 2) Status: Chronic Qualifiers: Diabetes mellitus complication status: with neurologic complications Diabetes mellitus complication detail: with polyneuropathy Diabetes mellitus termite control representative insulin use: with usp use Qualified Code(s): E11.42 - Type 2 diabetes mellitus with diabetic polyneuropathy (8) Daytime sleepiness Status: Chronic (9) Depression Status: Chronic Qualifiers: Depression Type: major depressive disorder Major depression recurrence: recurrent Active/Remission status: currently active Major depression episode severity: moderate Qualified Code(s): F33.1 - Major depressive disorder, recurrent, moderate (10) Fatigue Status: Chronic (11) History of tobacco use Status: Chronic (12) Hypertension, essential Status: Chronic (13) Insomnia Status: Chronic Qualifiers: Insomnia type: primary Qualified Code(s): F51.01 - Primary insomnia (14) Peripheral neuropathy Status: Chronic Qualifiers: Peripheral neuropathy type: polyneuropathy, unspecified Qualified Code(s): G62.9 - Polyneuropathy, unspecified
--- NOTE | 2017-02-01 10:42 | Discharge Summary ---
Medical - DS: Prov Patient information: Note initiated : 02/01/17 at 10:42 am Service Date, if different from initiated Date: [] Patient: Gregory Garcia 47 y/o M admitted on 01/26/17 for Inf L Foot, L Flank Pain/Diabetic Ketoacidosis. Chief Complaint: [] Date of admission: 01/26/17 16:25 Discharge date: 02/01/17 Primary care physician: Viktor Cox MD. Phone number [phone] Admitting clinician: Jazmine Craig Attending physician on discharge: Natalie Gaming Medical - DS: Meds - Discharge Medications Prescriptions: Accu-Chek 1 each FS ACHS #120 strip Amitriptyline [Elavil] 50 mg PO HSP PRN #30 tablet PRN Reason: Insomnia amLODIPine [Norvasc] 5 mg PO DAILY #30 Cholecalciferol (Vitamin D3) [Vitamin D3] 2,000 unit PO QDAY #30 cap Citalopram Hydrobromide [Citalopram HBr] 40 mg PO QDAY #30 tab Ertapenem [Invanz] 1 gm IV Q24H #7 vial Ferrous Sulfate 325 mg PO BIDCC #60 hydrOXYzine PAMOATE [Hydroxyzine Pamoate] 50 mg PO HSP PRN #30 PRN Reason: Insomnia Insulin Glargine,Hum.rec.anlog [Lantus Solostar] 25 unit SQ BID #1 insuln.pen Lisinopril [Zestril] 20 mg PO DAILY #30 tablet metFORMIN [Glucophage] 500 mg PO BIDCC #60 tablet oxyCODONE/APAP [Percocet 5-325 mg] 1 - 2 tab PO Q4-6HP PRN #60 tablet PRN Reason: Pain Vancomycin Per Pharmacy 1 order IV ONCE #1 miscell Vancomycin/0.9 % Sod Chloride [Vancomycin 1 G/100Ml-0.9% NaCl] 1 gm IV Q24H #7 plast..bag Active and Home Medications: Discharge medications: Ertapenem 1 g IV daily 1 week Vancomycin, dosed per pharmacy, daily 1 week Tylenol 650 mg every 6 hours as needed Amitriptyline 50 mg 1-2 p.o. nightly as needed (it is unclear if this was a as needed or scheduled med at home) Norvasc 5 mg daily (this replaced Benzapril-amlodipine, that was previously taken at home) Lisinopril 20 mg daily (this replaced Benzapril-amlodipine, that was previously taken at home) Citalopram 40 mg daily Iron sulfate 325 mg decrease to twice daily Heparin flush for midline, daily, at clinic hydroxyzine 50 mg nightly as needed insomnia Lantus SoloSTAR 25 units subcu twice daily Metformin decreased to 500 mg p.o. twice daily, glucose is controlled in the hospital. Percocet 53 25 1-2 tabs every 4 hours as needed right foot pain Vitamin D 2000 units daily (empagliflozin--held while in the hospital, and glucose is currently controlled without this med.) Previous home Medications: Patient had lost his insurance about 3 weeks ago, and has stopped taking all medications Lantus 62 units subcu nightly Amlodipine 5-Benzapril 20 p.o. daily empagliflozin 10 mg tablet 10 mg PO QDAY 08/18/16 [History Confirmed 01/27/17 Last Taken Unknown] metformin 1,000 mg tablet 1,000 mg PO BIDCC 08/18/16 [History Confirmed Last Taken Unknown] amitriptyline 100 mg tablet 100 mg PO HSP PRN 10/17/16 [History Confirmed Last Taken Unknown] ??? As needed versus scheduled cholecalciferol (vitamin D3) 2,000 unit capsule 2,000 unit PO QDAY #30 cap 10/18 [Rx Confirmed 01/27/17 Last Taken Unknown] citalopram 40 mg tablet 40 mg PO QDAY #30 tab 11/02/16 [Rx Confirmed 01/27/17 Last Taken Unknown] Ferrous Sulfate 325 mg PO TIDCC 01/27/17 [History Confirmed 01/27/17 Last Taken Unknown] hydrOXYzine PAMOATE [Hydroxyzine Pamoate] 50 mg PO HSP PRN 01/27/17 [History Confirmed 01/27/17 Last Taken Unknown] Omeprazole 20 mg daily Melatonin 5 mg nightly as needed Medical - DS: Hosp Hospital course: Mr. Garcia is a 47 year old M January 26, 2017: History of present illness: Mr. Garcia is a 46 year old male with h/o DM and other medical issues, chr right toe wound, presented to the ER with complaints of pain in the right foot for 2 days. The patient notes he has had a chr wound from diabetes on the right toe, this has been a non healing wound and he follows with Dr Pan madrigal tetryl screen operator who has been working with him. The patient fell and injured his right side body and injured the right toe on january 24. After this the patient noted increased redness and swelling of the right toe, the patient notes that the redness start ed to spread, and the pain worsened to a point where he could not lay foot on the ground. Pain throbbing in nature, worse with activity better with rest, Non radiating. he therefore presented to the ER . In the ER the patient was noted to have elevated wbc, high k, low sodium elevate glucose > 300, high gap, low bicarb. Patient had elevaetd betahydroxybutyrate, elevated anion gap, and ph of 7.2. He was admitted to the hospital with diagnosis of acute DKA and Acute osteomyelitis. The patient notes that around 11 of january he has not taken any of his medications including insulin, as his insurance ran out. 01/27: Pt seen examined, no acute overnight events, doing well, feels very thirsty and wants to drink something , partched. patient albs reviwed, still in DKA needing IV fluids and iv insulin. still has some chills and fever. 01/28: patient seen examined, overnight his ag was elevated a bit, but responded to fluids, hemodynamically stable, wanting to eat desperately, switched to sq insulin and sliding scacle. the left foot is getting worse, there is now an area pus seen on the left foot base, pt is significant pain from same. his DKA is tenuous and he may return in DKA should his infection spread, he has had some fever overnight, and the redness in the foot is spreading MRI this am to evaluate if OM and then discuss with Podiatry for possible intervention today, Source control will help significantly, for his DKA as well as his severe pain. February 01, 2017: Hospital course: -This patient was admitted with redness and swelling of his right foot. He had had a previous ulcer, and apparently stubbed his toe and ripped a scab off over the holiday weekend. He was admitted with a diagnosis of acute osteomyelitis, as well as acute DKA. He had apparently stopped taking all of his medications at home over the prior 2 weeks, due to losing his medical insurance. -He did undergo surgery with partial amputation and debridement, with Dr. Fletcher. The wound has done quite well since surgery. He still has a fair amount of edema, and moderate drainage, but he does appear to be healing. He is having some issues with pain control, but was switched from IV Dilaudid to p.o. Percocet today. He is stable enough to return home, but will be coming back to clinic daily for dressing changes, wound check, and IV antibiotics. -Wound cultures grew only pansensitive staph, but the patient had already been on IV vancomycin and Zosyn for more than 24 hours prior to those being obtained. MRSA screen, nasal, was positive. -he did present with severe acidosis, due to DKA. He was treated with an insulin drip and high volume IV fluids. This improved initially, but worsened after surgery, and he had to be treated again. Acidosis has resolved. Patient is now back on an oral diabetic diet, and receiving twice daily Lantus plus twice daily low-dose metformin. He is currently quite well controlled. -He has been quite uncomfortable with edema and fluid weight. His weight actually increased from 197 pounds at admission, to a peak of 227 pounds. He has been receiving IV Lasix for the last couple of days to diurese him a bit. -He did work with physical therapy today, as he has a nonweightbearing status for his foot. He was able to walk pretty well with a walker. On exam, he does not appear to be in any distress. Neck is supple without obvious lymphadenopathy or JVD. Cardiac exam shows regular rate and rhythm. Lungs are clear to auscultation after coughing clears a few crackles at the bases. Abdomen is soft and nontender. Right lower extremity appears normal. Left foot is heavily bandaged. This was removed by Dr. Fletcher this morning. Incision appears to be healing well.. The foot is still quite swollen. Both legs are still fairly edematous up to the knee. Neurologic exam is not tested in detail but is grossly nonfocal. Assessment and plan: #1. Renal/endocrine. -This patient presented with diabetic ketoacidosis, severe. He was somewhat slow to respond to treatment with IV insulin drip and IV fluids, but this is now resolved. - patient is now on twice daily Lantus plus before meals and at bedtime sliding scale. He is tolerating a diabetic diet just fine. -Resumed low-dose metformin, and titrate as tolerated. Empagliflozin is still on hold. -Calcium now corrects to normal, regarding low albumin. Phosphorus is back to normal, with oral replacement. -I have discussed with the patient in some detail how dangerous it is to let himself run out of insulin, and that DKA can be fatal. He promises to go back to checking his blood sugar at least daily, and to let someone know if he is having trouble accessing his diabetes medications. He is asked to check his blood sugar 2-4 times a day, and keep a diary, and bring this to his primary care follow-up appointments. -Continue amitriptyline for diabetic peripheral neuropathy. On admission this was noted to be a as needed med to be used as needed for sleep, and this will need to be clarified with his primary care doctor. 2. Osteomyelitis of the left foot/toes. Status post amputation and debridement. -Cultures so far are growing only pansensitive staph, but the patient had been treated with IV vancomycin and Zosyn prior to the cultures being obtained. I would assume, since this is both a diabetic foot wound and a traumatic wound, that is now status post debridement, that this is a polymicrobial diabetic foot wound. I will plan on continuing broad-spectrum IV antibiotic coverage for at least another week. -private branch exchange repairer to ertapenem plus vancomycin. Dr. Fletcher feels comfortable with continuing IV antibiotics for a short time, and then switching over to oral antibiotics. -He would need to follow-up in the wound clinic with Dr. Fletcher, in about 2 days. He will come to clinic daily for dressing changes and IV antibiotics and her wound care clinic. 3. Pain. Continue as needed Tylenol, Percocet, amitriptyline. 4. Depression. Continue amitriptyline, Celexa. Continue amitriptyline and hydroxyzine as needed for sleep issues. 5. GI. -History of GERD. Pepcid for GI prophylaxis. 6. Atarax as needed for insomnia. 7. CODE STATUS: Full code. 8. DVT prophylaxis: Subcu heparin use in the hospital. He is encouraged to get up and walk around at least every 1-2 hours while at home, but is to remain nonweightbearing on the right foot. #9. Patient does have significant edema, and has received a large volume of IV fluids. IV fluids have been discontinued. IV Lasix was also given, to help him diurese. 10. History of hypertension. He was on Benzapril plus amlodipine at home, but I cannot get our system to let me order this today, presumably because it is not on formulary.. He will be sent home with prescriptions for lisinopril and amlodipine. He will follow-up tomorrow with the wound care clinic. He will follow-up with Dr. Fletcher in the next few days. He should follow-up with Dr. Cox in the next week. This visit took approximately 45 minutes today, to review patient's test results , interview and examine him, review plan of care with staff, as well as with Dr. Fletcher, and the patient, and write orders. Discharge diagnosis: Right toe and foot osteomyelitis. Diabetic foot ulcer. DKA. Secondary discharge diagnosis: Noncompliance with medical regimen due to loss of insurance. Hypertension Depression - Time Spent with Patient Total time spent providing and/or coordinating discharge services: Greater than 30 minutes Medical - DS: Exam - Constitutional Vitals: Vital Signs Temp Pulse Resp BP BP Pulse Ox 02/01/17 04:00 97.8 F 74 16 148/98 94 02/01/17 00:00 98.6 F 88 18 167/98 97 01/31/17 20:00 97.8 F 66 18 164/87 97 01/31/17 19:32 72 01/31/17 16:00 98.2 F 72 18 170/100 98 01/31/17 12:00 97.8 F 69 18 151/90 100 Intake and Output 01/31/17 02/01/17 02/01/17 21:59 05:59 13:59 Intake Total 2390 / 2390 1300 / 1300 Output Total 2049 / 2049 Balance 340 / 340 1300 / 1300 Intake: IV 550 / 550 500 / 500 INVanz 1 GM In Sodium 50 / 50 Chloride 0.9% 50 ml @ 100 mls/hr IV DAILY LALITO Rx#: [id number] Vancomycin 1,500 mg In 500 / 500 500 / 500 Sodium Chloride 0.9% 500 ml @ 333.3 mls/hr IV Q12H LALITO Rx#:[id number] Oral 1840 / 1840 800 / 800 Output: Void Amount 2049 Other: Meal Dinner Percent of Meal Consumed 75% Feeding Ability Independent # Bowel Movements 1 0 Weight 216 lb 8 oz Medical - DS: Data Labs on day of discharge: Labs from last 24 hours 02/01/17 02/01/17 04:17 04:17 WBC 7.5 RBC 3.68 L Hgb 10.9 L Hct 31.9 L MCV 86.6 MCH 29.7 MCHC 34.3 RDW 15.6 H Plt Count 275 MPV 8.0 Gran % 62.3 Lymph % (Auto) 22.3 Lucas % (Auto) 12.1 H Eos % (Auto) 3.0 Baso % (Auto) 0.3 Gran # 4.7 Lymph # (Auto) 1.7 Lucas # (Auto) 0.9 Eos # (Auto) 0.2 Baso # (Auto) 0 Sodium 140 Potassium 3.7 Chloride 97 Carbon Dioxide 31 H Anion Gap 12.0 BUN 10 Creatinine 0.8 GFR Calculation 105 Glucose 134 H Uric Acid 3.3 Calcium 8.8 Phosphorus 4.8 H Magnesium 1.7 Total Bilirubin 0.2 Direct Bilirubin < 0.2 GGT 64 H AST 18 ALT 24 Alkaline Phosphatase 62 Lactate Dehydrogenase 150 Total Protein 5.9 Albumin 2.4 L Globulin 3.5 Albumin/Globulin Ratio 0.7 L Triglycerides 155 H Preliminary micro results at discharge 01/28/17 19:04 Anaerobic Culture - Preliminary Foot - Left January 29: EKG shows normal sinus rhythm at a rate of 94, with left axis deviation, right bundle branch block. January 28: Wound culture: Is growing staph aureus, --pansensitive to all antibiotics tested. However, cultures were obtained 2 days after admission, the patient had been on IV antibiotics for at least 24 hours at that time. Gram stain showed moderate to many polys and red blood cells, and a few gram- positive cocci in pairs. MRI of the left foot shows bone marrow edema in the left first distal phalanx consistent with osteomyelitis. Mild bone marrow edema in the left first proximal phalanx with possible osteomyelitis. Erosive changes in the distal left second metatarsal without bone marrow edema, probably chronic. January 27: Chest x-ray shows a right-sided PICC line with its tip in the right atrium. Lungs are clear. January 26: Nasal MRSA screen is positive. Blood cultures are negative. ABG on room air: PH 7.23, PCO2 22, PO2 110, bicarb 9.2, O2 saturation 97% Venous pH 7.18, PCO2 39, PO2 45, O2 saturation 72% CBC: White blood cell count 14,300, 86% neutrophils Medical - DS: A/P - Patient/Caregiver Discharge Instructions Activity: ambulate only with your walker, other (Do not bear any weight on your right foot at all. Keep the leg elevated when at rest.) Diet: Low Sodium (2gm), Consistent Carbohydrate Additional Instructions: 1. To follow up with Dr Fletcher on Monday. #2. To follow up with outpatient for daily wound care and outpatient antibiotics per hospitalist; Scheduled for out patient antibiotics beginning tomorrow, February 02 at 11:00AM in [facility]. #3. No weight bearing to Left foot until released by Dr Fletcher to do so. Walker has been prescribed for you. #4. Please keep your foot clean and dry. If the bandage becomes soaked, you can remove the gauze and then re-cover it with clean gauze. Do not shower, until you get the okay from Dr. Fletcher. #5. You have a right arm IV catheter. Please keep this area clean and dry as well. #6. Several of your medications have had doses adjusted. Please pay attention to the new directions on your prescriptions. Please follow-up with Dr. Cox within the next week to review all of her medications, blood glucose checks, and blood pressures. Prescriptions: Accu-Chek 1 each FS ACHS #120 strip Amitriptyline [Elavil] 50 mg PO HSP PRN #30 tablet PRN Reason: Insomnia amLODIPine [Norvasc] 5 mg PO DAILY #30 Cholecalciferol (Vitamin D3) [Vitamin D3] 2,000 unit PO QDAY #30 cap Citalopram Hydrobromide [Citalopram HBr] 40 mg PO QDAY #30 tab Ertapenem [Invanz] 1 gm IV Q24H #7 vial Ferrous Sulfate 325 mg PO BIDCC #60 hydrOXYzine PAMOATE [Hydroxyzine Pamoate] 50 mg PO HSP PRN #30 PRN Reason: Insomnia Insulin Glargine,Hum.rec.anlog [Lantus Solostar] 25 unit SQ BID #1 insuln.pen Lisinopril [Zestril] 20 mg PO DAILY #30 tablet metFORMIN [Glucophage] 500 mg PO BIDCC #60 tablet oxyCODONE/APAP [Percocet 5-325 mg] 1 - 2 tab PO Q4-6HP PRN #60 tablet PRN Reason: Pain Vancomycin Per Pharmacy 1 order IV ONCE #1 miscell Vancomycin/0.9 % Sod Chloride [Vancomycin 1 G/100Ml-0.9% NaCl] 1 gm IV Q24H #7 plast..bag Other Amb Orders: Wound Care/Dressings Time Frame: 2 Weeks, Facility: [facility] , Location: Determined By Patient Walker Location: Determined By Patient - Follow up Plan Follow up with: Viktor Cox DO [Primary Care Provider] - 02/09/17 11:30 am (Check in at 11:15. ) Lenin Fletcher DPM [Physician] - 02/06/17 Disposition: Home, Self-Care Prognosis: Good Rehab Potential: Good I certify that the patient requires SNF services: No Overall status at discharge: patient is progressing back to baseline Medical - DS: Qual - VTE Deep Vein Thrombosis/Pulmonary Embolism Present on Admission: No
--- NOTE | 2017-02-02 13:43 | Surgical Pathology Report ---
HISTOLOGY SPECIMEN MICROSCOPIC DIAGNOSIS SPECIMEN A - TOE, LEFT GREAT, AMPUTATION: -- EPIDERMAL ULCERATION, GRANULATION TISSUE AND ABSCESS. -- CHRONIC OSTEOMYELITIS. -- VIABLE MARGINS OF RESECTION. SPECIMEN B - BONE, LEFT PROXIMAL PHALANX, AMPUTATION: -- BONE WITH NO DIAGNOSTIC ALTERATIONS. -- NO OSTEOMYELITIS IDENTIFIED. -- VIABLE MARGINS OF RESECTION. (RLF:djf) PROCEDURAL IMPRESSION Diabetic ulcer left foot. GROSS DESCRIPTION Specimen A: Received in formalin labeled left great toe, is a distal portion of toe which measures 3.6 x 2.8 x 5.3 cm. This has been disarticulated between the first and second phalanges. There is a 0.8 cm in diameter ulcer at the proximal epidermal surface. This ulcer has been cut through at the resection margin. There is an additional 0.3 cm in diameter ulcer on the medial/plantar surface two cm from the tip of the toe. A full length longitudinal section is taken through the middle portion of the toe to include the ulcer at the resection margin. The margin is inked black. The full section is submitted and section of the smaller ulcer. Supervisor Nurse sections following decalcification: A1-A2 - full longitudinal section, bisected with A1 distal and A2 proximal; A3 - smaller ulcer. Specimen B: Received in formalin labeled left proximal phalanx, is a portion of bone with a smooth glistening wiggins articular surface. This measures 1.5 x 2.0 x 1.3 cm. The resection margin is inked black. Supervisor Nurse sections are submitted - one cassette following decalcification. (RAD:djf) Electronically Signed by: Renetta Kaminski M.D.
== END 2017-02-01 15:48 | disposition home or self-care (01) | DRG 463 ==
LOC: ED 12:36 → SUATTDRO 16:25 → ICU 16:25
PROVIDERS: ADMIT Internal Medicine; ATTEND Internal Medicine

== ENCOUNTER 2022-03-15 10:18 | Inpatient (IN) ==
--- NOTE | 2022-03-15 11:10 | Emergency Department Note ---
Lower Extremity Injury HPI General Chief Complaint: Extremity Injury, Lower Stated Complaint: Toe Infection Time Seen by Provider: 03/15/22 10:24 Source: patient Mode of arrival: ambulatory Limitations: no limitations History of Present Illness HPI Narrative: Narrative: 52-year-old male with uncontrolled diabetes, severe neuropathy, obstructive sleep apnea, chronic pain, anemia, previous diabetic foot ulcers needing wound care, psoriasis, arthritis and acid reflux presents the ER to be evaluated for necrosis and drainage of the right third toe. Approximately 10 days ago he impacted his toe. He believes he may be broke it. He states he has no feeling he left it alone however it started to crack and drain. He had his friend who is an EMT look at it who wrapped it and told him to come to the ER for further evaluation. He denies fever, chills, body aches, nausea or vomiting. He states his last A1c was around 7 after his neck fusion surgery and it has been going up since then. He states he has no other associated symptoms and he generally feels fine but he became concerned when his friend was concerned. Related Data Home Medications Medication Instructions Recorded Confirmed omeprazole 20 mg capsule,delayed 20 mg PO QDAY 03/31/20 03/15/22 release Previous Rx's Medication Instructions Recorded Accu-Chek 1 each FS ACHS #120 strips 02/01/17 flash glucose scanning reader #1 ea 07/01/19 (FreeStyle Avery 14 Day [place]) pen needle, diabetic 31 gauge x #100 ea 09/14/20 5/16" (BD Ultra-Fine Short Pen Needle) pioglitazone 30 mg tablet 30 mg PO DAILY #90 tabs 10/27/20 lidocaine 5 % topical patch 3 patch topical QDAY #30 ea 11/04/20 methocarbamol 750 mg tablet 1,500 mg PO BID PRN muscle spasm 06/07/21 #120 tabs insulin aspart U-100 100 unit/mL 30 unit (0.3 mL) subcut TID #30 mL 10/05/21 (3 mL) subcutaneous pen (Novolog Flexpen U-100 Insulin aspart) insulin glargine 100 unit/mL (3 See Rx Instructions .Route 10/25/21 mL) subcutaneous pen (Basaglar .COMPLEX #15 mL KwikPen U-100 Insulin) amlodipine 5 mg tablet 5 mg PO DAILY #90 tabs 05/09/22 amitriptyline 100 mg tablet 100 mg PO QDAY #90 tabs 12/08/21 flash glucose sensor (FreeStyle See Rx Instructions .Route 12/13/21 Avery 14 Day Sensor kit) .COMPLEX #4 Kits lisinopril 20 mg tablet 20 mg PO DAILY #90 tabs 12/13/21 sildenafil 100 mg tablet 100 mg PO QDAY PRN sexual activity 12/27/21 #30 tabs metformin 1,000 mg tablet 1,000 mg PO BID #180 tabs 02/10/22 pregabalin 150 mg capsule 150 mg PO BID #60 caps 03/01/22 Allergies Allergy/AdvReac Type Severity Reaction Status Date / Time No Known Drug Allergies Allergy Verified 12/08/21 13:46 Review of Systems ROS ROS Narrative: Narrative: All systems ED: reviewed and negative except as stated. [facility] Narrative Patient History Narrative: Narrative: Medical/Surgical/Family History All Active Problems (Updated 03/15/22 @ 13:52 by Herbert Blanca PA-C) Necrotic toes (Acute) Right hand weakness (Acute) KAREN (obstructive sleep apnea) (Acute) Medicare welcome exam (Acute) Cubital tunnel syndrome on right (Acute) COVID-19 (Acute) Opiate misuse (Acute) Chronic pain (Chronic) Cervical radiculopathy (Chronic) Chronic radicular lumbar pain (Acute) Exposure to chlamydia (Acute) Iron deficiency anemia (Acute) Diabetic nephropathy (Chronic) Hypokalemia (Acute) Diabetic ulcer of toe associated with diabetes mellitus due to underlying condition (Acute) DKA (diabetic ketoacidoses) (Acute) Wound infection (Acute) Chronic sinusitis (Chronic) Psoriasiform dermatitis (Acute) Polyarthralgia (Chronic) 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) History of tobacco use (Chronic) Sleep apnea (Chronic) Peripheral neuropathy (Chronic) Fatigue (Chronic) Arthritis (Chronic) Insomnia (Chronic) Hypertension, essential (Chronic) DMII (diabetes mellitus, type 2) (Chronic) Depression (Chronic) Daytime sleepiness (Chronic) Acid reflux (Chronic) Medical History Acid reflux Arthritis Cervical radiculopathy Chronic pain Daytime sleepiness Depression Diabetic nephropathy DMII (diabetes mellitus, type 2) Fatigue History of tobacco use Hypertension, essential Hypokalemia Insomnia Iron deficiency anemia Marijuana use in remission Medicare welcome exam Peripheral neuropathy Sleep apnea Surgical History H/O oral surgery (~1989) for jaw fracture Family History Mother Primary cancer of bone marrow Hypertension, essential Grandfather Diabetes Paternal Social History Smoking Status: Former smoker Alcohol Intake Frequency: a few times a week Substance Use: former substance user and marijuana Exam Narrative Narrative: Narrative: Gen: No acute distress Eyes: PERRL, no conjunctival injection , and symmetrical lids. Sclerae non icteric HENMT: Normocephalic Atraumatic head, external nose and ears. Moist MM. MSK: Necrotic right third toe, DP and PT are 2+ with cap refill in the foot otherwise normal. There is some drainage but it is mostly dry it appears as the skin is necrosing down to the bone and there is concern for osteomyelitis. Patient has no sensation of the foot. Skin: Warm, Dry . No rashes or lesions . Cap refill less than 2. Psych: Awake, Alert, & Oriented (AAO) x3. Appropriate mood and affect . General Limitations: no limitations Course Vital Signs Vital signs: Vital Signs Temperature 97.8 F 03/15/22 10:25 Pulse Rate 92 H 03/15/22 10:25 Respiratory Rate 18 03/15/22 10:25 Blood Pressure 121/79 03/15/22 10:25 Pulse Oximetry (%) 98 03/15/22 10:25 Oxygen Delivery Method 03/15/22 10:25 Temperature 97.8 F 03/15/22 10:25 Pulse Rate 59 L 03/15/22 15:01 Respiratory Rate 18 03/15/22 10:25 Blood Pressure 114/72 03/15/22 15:01 Pulse Oximetry (%) 96 03/15/22 15:01 Oxygen Delivery Method 03/15/22 10:25 [facility] MDM Narrative Medical decision making narrative: Narrative: Patient is afebrile with normal vital signs which is reassuring however, he has a right third toe that he impacted recently that appears to be necrotic. He will be evaluated with a CBC, CMP, ESR, CRP and an A1c. Will initially start with x-rays. CBC: No white count, anemia CMP: Glucose over 500 otherwise unremarkable ESR: High at 69 CRP: Elevated 6.2 A1c: 12 average estimated glucose of 300 Toe x-ray:IMPRESSION: Subacute moderately comminuted nondisplaced fracture fourth proximal phalanx-subtotal unified. Minimal deformity third proximal phalanx which may indicate MALUNIFIED old fracture. No specific radiographic evidence for osteomyelitis Marked soft tissue swelling over the third distal phalanx and mild soft tissue swelling over the fourth distal phalanx. Suspect cellulitis or edema Interpreted and Authenticated by: Viktor Landry 03/15/22 Dr Lamar: Believes it sounds like it need surgical intervention and will come down to evaluate the patient Dr. Lamar agrees this patient needs to come in to have an amputation of his toe. He has high inflammatory markers, necrosis of the toe. There is no evidence of spreading erythema or cellulitis at this time. He is afebrile with normal vital signs and is otherwise well-appearing. He will be started on vancomycin and Zosyn and Dr. Wang will be consulted. Dr Wang will be down to admit the patient. Lab Data Result diagrams: 03/15/22 11:18 03/15/22 11:18 Labs: Lab Results 03/15/22 03/15/22 Range/Units 11:18 11:18 WBC 8.8 (4.5-11.0) K/mcL RBC 4.08 L (4.63-6.08) M/mcL Hgb 12.0 L (13.7-17.5) g/dL Hct 36.6 L (40.1-51.0) % MCV 89.7 (80.0-100.0) fL MCH 29.4 (26.0-34.0) pg MCHC 32.8 (31.0-36.0) g/dL RDW 13.1 (11.5-14.5) % Plt Count 229 (140-440) K/mcL MPV 11.4 H (7.4-10.4) fL Immature Gran % (Auto) 0.6 H (0.0-0.5) % Neut % (Auto) 69.9 (38.0-78.0) % Lymph % (Auto) 20.6 (15.5-49.0) % [place] % (Auto) 6.6 (1.0-12.0) % Eos % (Auto) 1.7 (0.0-7.0) % Baso % (Auto) 0.6 (0.0-2.0) % Lymph # (Auto) 1.82 (1.50-4.80) K/mcL [place] # (Auto) 0.58 (0.10-0.90) K/mcL Eos # (Auto) 0.15 (0.00-0.70) K/mcL Baso # (Auto) 0.05 (0.00-0.30) K/mcL Immature Gran # 0.05 (0.00-0.05) K/mcl Absolute Neutrophils 6.18 (1.80-8.00) K/mcL ESR 69 H (0-20) mm/hr Sodium 132 L (133-145) mmol/L Potassium 4.8 (3.3-5.1) mmol/L Chloride 97 (96-108) mmol/L Carbon Dioxide 25 (22-30) mmol/L Anion Gap 10.0 (8.0-16.0) BUN 19 (6-20) mg/dL Creatinine 0.9 (0.7-1.2) mg/dL GFR Calculation 96 Glucose 514 H* (70-105) mg/dL Hemoglobin A1c 12.0 H (4.0-6.0) % Hgb Estim Average Glucose 298 mg/dL Calcium 9.3 (8.6-10.4) mg/dL Total Bilirubin 0.3 (0.1-1.0) mg/dL AST 9 (<40) U/L ALT 9 (<40) U/L Alkaline Phosphatase 97 (39-117) U/L C-Reactive Protein 6.20 H (0.03-0.80) mg/dL Total Protein 7.0 (5.9-8.4) gm/dL Albumin 3.1 L (3.2-5.2) gm/dL Globulin 3.9 H (2.2-3.7) gm/dL Albumin/Globulin Ratio 0.8 L (1.0-2.3) Discharge Plan Patient/Caregiver Discharge Instructions Pt seen by ANALYTICAL SCIENCES DIRECTOR/PA only: Yes Clinical Impression: Necrotic toes Patient Disposition: Xfer As Inpt ([facility]) Follow up with: Viktor Cox DO [Primary Care Provider] - Prescriptions: No Action (DME) FreeStyle Avery 14 Day [place] mis See Rx Instructions .ROUTE .MEDSUPPLY Qty: 1 0RF Rx Instructions: As directed (DME) pen needle, diabetic [BD Ultra-Fine Short Pen Needle] 31 gauge x 5/16" needle See Dose Instructions .ROUTE .MEDSUPPLY MDD twice daily Qty: 100 8RF Dose Instruction: As directed Rx Instructions: Use to inject Novolog and Lantus - up to 5 times daily pioglitazone 30 mg tablet 30 mg PO DAILY Qty: 90 1RF methocarbamol 750 mg tablet 1,500 mg PO BID PRN (Reason: muscle spasm) Qty: 120 5RF Basaglar KwikPen U-100 Insulin 100 unit/mL (3 mL) insulin pen See Rx Instructions .ROUTE .COMPLEX Qty: 15 0RF Dose Instruction: inject 30 units subcutaneously every morning and 80 units every evening daily Rx Instructions: inject 30 units subcutaneously every morning and 80 units every evening daily amlodipine 5 mg tablet 5 mg PO DAILY Qty: 90 1RF lisinopril 20 mg tablet 20 mg PO DAILY Qty: 90 1RF FreeStyle Avery 14 Day Sensor Kit See Rx Instructions .ROUTE .COMPLEX Qty: 4 5RF Dose Instruction: apply 1 SENSOR TO THE BACK OF UPPER ARM REMOVE AND REPLACE every 14 days use with DEVICE to MONITOR BLOOD SUGAR Rx Instructions: apply 1 SENSOR TO THE BACK OF UPPER ARM REMOVE AND REPLACE every 14 days use with DEVICE to MONITOR BLOOD SUGAR sildenafil 100 mg tablet 100 mg PO QDAY PRN (Reason: sexual activity) Qty: 30 3RF Rx Instructions: administer 30 minutes to 4 hours before activity metformin 1,000 mg tablet 1,000 mg PO BID Qty: 180 1RF pregabalin 150 mg capsule 150 mg PO BID Qty: 60 0RF lidocaine 5 % adhesive patch,medicated 3 patch topical QDAY Qty: 30 5RF Rx Instructions: leave on most painful area for up to 12 hrs amitriptyline 100 mg tablet 100 mg PO QDAY Qty: 90 3RF insulin aspart U-100 [Novolog Flexpen U-100 Insulin] 100 unit/mL (3 mL) insulin pen 30 unit subcut TID Qty: 30 3RF Rx Instructions: 10u base + high resistance sliding scale TID with meals; Accu-Chek 1 EACH strip 1 each FS ACHS Qty: 120 0RF omeprazole 20 mg Capsule,Delayed Release(Dr/Ec) 20 mg PO QDAY
--- NOTE | 2022-03-15 12:19 | XRay Report ---
CLINICAL INFORMATION: Trauma COMPARISON: None FINDINGS: Subtotal unified, moderately comminuted, subacute fracture through the fourth proximal phalanx appreciated. There is also slight deformity of the third proximal phalanx suggesting minimally MALUNIFIED old fracture. No specific evidence for osteomyelitis. 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 Other joint spaces are normal. Marked soft tissue swelling over the third distal phalanx and moderate soft tissue swelling over the fourth toe phalanx noted IMPRESSION: Subacute moderately comminuted nondisplaced fracture fourth proximal phalanx-subtotal unified. Minimal deformity third proximal phalanx which may indicate MALUNIFIED old fracture. No specific radiographic evidence for osteomyelitis Marked soft tissue swelling over the third distal phalanx and mild soft tissue swelling over the fourth distal phalanx. Suspect cellulitis or edema Interpreted and Authenticated by: Viktor Landry 03/15/22
[2022-03-15 12:31] LABS: Estimated Average Glucose(eAG) 298 mg/dL
[2022-03-15 12:42] LABS: Erythrocyte Sedimentation Rate 69 mm/hr (0-20)
[2022-03-15 12:52] LABS: Basophils # (Auto) 0.05 K/mcL (0.00-0.30); Basophils % (Auto) 0.6 % (0.0-2.0); Eosinophils # (Auto) 0.15 K/mcL (0.00-0.70); Eosinophils % (Auto) 1.7 % (0.0-7.0); Hematocrit 36.6 % (40.1-51.0); Lymphocytes # (Auto) 1.82 K/mcL (1.50-4.80); Lymphocytes % (Auto) 20.6 % (15.5-49.0); Mean Cell Volume 89.7 fL (80.0-100.0); Mean Corpuscular HGB Conc 32.8 g/dL (31.0-36.0); Mean Platelet Volume 11.4 fL (7.4-10.4); Monocytes # (Auto) 0.58 K/mcL (0.10-0.90); Monocytes % (Auto) 6.6 % (1.0-12.0); Neutrophils % (Auto) 69.9 % (38.0-78.0); Platelet Count 229 K/mcL (140-440); RBC 4.08 M/mcL (4.63-6.08); Red Cell Distribution Width 13.1 % (11.5-14.5); WBC 8.8 K/mcL (4.5-11.0)
[2022-03-15 13:02] LABS: ALT/SGPT 9 U/L (<40); AST/SGOT 9 U/L (<40); Albumin 3.1 gm/dL (3.2-5.2); Albumin/Globulin Ratio 0.8 (1.0-2.3); Alkaline Phosphatase 97 U/L (39-117); Bilirubin,Total 0.3 mg/dL (0.1-1.0); Blood Urea Nitrogen 19 mg/dL (6-20); Calcium 9.3 mg/dL (8.6-10.4); Carbon Dioxide 25 mmol/L (22-30); Chloride 97 mmol/L (96-108); Globulin 3.9 gm/dL (2.2-3.7); Glomerular Filtration Rate 96; Glucose 514 mg/dL (70-105)
[2022-03-15] MEDS ORDERED: VANCOMYCIN PER PHARMACY IV ONE (13:50)
[2022-03-15] MEDS ORDERED: PIPERACILLIN SODIUM/TAZOBACTAM 3.375 GM in DEXTROSE 5% IN WATER 50 ML IV ONE (13:50)
[2022-03-15] MEDS ORDERED: VANCOMYCIN 1,500 MG in 0.9 % SODIUM CHLORIDE 500 ML IV ONE (14:00)
[2022-03-15] MEDS ORDERED: INSULIN REGULAR, HUMAN 50 UNIT in 0.9 % SODIUM CHLORIDE 99.5 ML IV SCH (15:45)
--- NOTE | 2022-03-15 15:45 | Internal Med History&Physical ---
HPI History of Present Illness Patient information: Note initiated : 03/15/22 at 3:38 pm Service Date, if different from initiated Date: [] Patient: Gregory Garcia 52 y/o M admitted on for Toe Infection. Chief Complaint: [] History of present illness: Mr. Garcia is a 52 year old M With diabetes neuropathy hypertension who injured his toe right third about a week and a half ago. Still has of subsequently developed erythema edema and now black looking at the distal portion. And some mild drainage. Patient was seen by Dr. Humphries who states the necrotic toe will need amputation. Patient is otherwise feeling well no new fevers or chills or new complaints. He did have an elevated CRP of 6.2 and elevated sed rate of 69. A1c is notable for level of 12. His glucose in the ER was 514. Patient states that his diabetic regimen consist of pioglitazone and metformin as well as long-acting insulin with 30 units in the morning and 80 units at night but he says that has been "barber" him. And so he only takes 30 units of long-acting at night. His short acting prescription is for 26 units with meals 3 times daily but he is only been taking 15 units 3 times daily. review of Systems: Pertinent positives as above. Denies headache/fever/c hills/nausea/vomiting/chest or abdominal pain/cough/dyspnea/diarrhea. Remaining 10 point review of system reviewed negative. PFSH PFSH All Active Problems (Updated 03/15/22 @ 13:52 by Herbert Blanca PA-C) Necrotic toes (Acute) Right hand weakness (Acute) KAREN (obstructive sleep apnea) (Acute) Medicare welcome exam (Acute) Cubital tunnel syndrome on right (Acute) COVID-19 (Acute) Opiate misuse (Acute) Chronic pain (Chronic) Cervical radiculopathy (Chronic) Chronic radicular lumbar pain (Acute) Exposure to chlamydia (Acute) Iron deficiency anemia (Acute) Diabetic nephropathy (Chronic) Hypokalemia (Acute) Diabetic ulcer of toe associated with diabetes mellitus due to underlying condition (Acute) DKA (diabetic ketoacidoses) (Acute) Wound infection (Acute) Chronic sinusitis (Chronic) Psoriasiform dermatitis (Acute) Polyarthralgia (Chronic) 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) History of tobacco use (Chronic) Sleep apnea (Chronic) Peripheral neuropathy (Chronic) Fatigue (Chronic) Arthritis (Chronic) Insomnia (Chronic) Hypertension, essential (Chronic) DMII (diabetes mellitus, type 2) (Chronic) Depression (Chronic) Daytime sleepiness (Chronic) Acid reflux (Chronic) Medical History Acid reflux Arthritis Cervical radiculopathy Chronic pain Daytime sleepiness Depression Diabetic nephropathy DMII (diabetes mellitus, type 2) Fatigue History of tobacco use Hypertension, essential Hypokalemia Insomnia Iron deficiency anemia Marijuana use in remission Medicare welcome exam Peripheral neuropathy Sleep apnea Surgical History H/O oral surgery (~1989) for jaw fracture Family History Mother Primary cancer of bone marrow Hypertension, essential Grandfather Diabetes Paternal Social History marital status: single smoking status: Former smoker alcohol intake frequency: a few times a week substance use type: former substance user and marijuana MEDS/ALLERGIES Home Medications and Allergies Home Medications Medication Instructions Recorded Confirmed Type Accu-Chek 1 each FS ACHS #120 strips 02/01/17 03/15/22 Rx flash glucose scanning reader #1 ea 07/01/19 03/15/22 Rx (FreeStyle Avery 14 Day [place]) omeprazole 20 mg capsule,delayed 20 mg PO QDAY 03/31/20 03/15/22 History release pen needle, diabetic 31 gauge x #100 ea 09/14/20 03/15/22 Rx 5/16" (BD Ultra-Fine Short Pen Needle) pioglitazone 30 mg tablet 30 mg PO DAILY #90 tabs 10/27/20 03/15/22 Rx lidocaine 5 % topical patch 3 patch topical QDAY #30 ea 11/04/20 03/15/22 Rx methocarbamol 750 mg tablet 1,500 mg PO BID PRN muscle spasm 06/07/21 03/15/22 Rx #120 tabs insulin aspart U-100 100 unit/mL 30 unit (0.3 mL) subcut TID #30 mL 10/05/21 03/15/22 Rx (3 mL) subcutaneous pen (Novolog Flexpen U-100 Insulin aspart) insulin glargine 100 unit/mL (3 See Rx Instructions .Route 10/25/21 03/15/22 Rx mL) subcutaneous pen (Basaglar .COMPLEX #15 mL KwikPen U-100 Insulin) amlodipine 5 mg tablet 5 mg PO DAILY #90 tabs 11/29/21 03/15/22 Rx amitriptyline 100 mg tablet 100 mg PO QDAY #90 tabs 12/08/21 03/15/22 Rx flash glucose sensor (FreeStyle See Rx Instructions .Route 12/13/21 03/15/22 Rx Avery 14 Day Sensor kit) .COMPLEX #4 Kits lisinopril 20 mg tablet 20 mg PO DAILY #90 tabs 12/13/21 03/15/22 Rx sildenafil 100 mg tablet 100 mg PO QDAY PRN sexual activity 12/27/21 03/15/22 Rx #30 tabs metformin 1,000 mg tablet 1,000 mg PO BID #180 tabs 02/10/22 03/15/22 Rx pregabalin 150 mg capsule 150 mg PO BID #60 caps 03/01/22 03/15/22 Rx Allergies Allergy/AdvReac Type Severity Reaction Status Date / Time No Known Drug Allergies Allergy Verified 12/08/21 13:46 EXAM Constitutional Vitals: Temp Pulse Resp BP Pulse Ox O2 Del Method 97.8 F 56 L 18 107/76 99 03/15/22 10:25 03/15/22 15:31 03/15/22 10:25 03/15/22 15:31 03/15/22 15:31 03/15/22 10:25 Exam: General: Alert, Awake, No acute Distress Eyes/N/T: EOMI, PERRL, Head/Neck: neck supple, normocephalic atraumatic CV: RRR, No murmurs, normal s1/s2 Pulm: Clear b/l, no wheezing/rhonchi/rales Abd: soft, nontender, +BS x4 Ext: no clubbing/cyanosis/edema . Right third toe edematous/erythematous/gangrenous Neuro: Alert, no focal deficits, moves all extremities, CN 2-12 grossly intact, symmetrical strength b/l upper/lower, sensations intact b/l upper/lower Skin: warm/dry DATA Data Completed and Pending Labs: Labs from last 24 hours 03/15/22 03/15/22 11:18 11:18 WBC 8.8 RBC 4.08 L Hgb 12.0 L Hct 36.6 L MCV 89.7 MCH 29.4 MCHC 32.8 RDW 13.1 Plt Count 229 MPV 11.4 H Immature Gran % (Auto) 0.6 H Neut % (Auto) 69.9 Lymph % (Auto) 20.6 [place] % (Auto) 6.6 Eos % (Auto) 1.7 Baso % (Auto) 0.6 Lymph # (Auto) 1.82 [place] # (Auto) 0.58 Eos # (Auto) 0.15 Baso # (Auto) 0.05 Immature Gran # 0.05 Absolute Neutrophils 6.18 ESR 69 H Sodium 132 L Potassium 4.8 Chloride 97 Carbon Dioxide 25 Anion Gap 10.0 BUN 19 Creatinine 0.9 GFR Calculation 96 Glucose 514 H* Hemoglobin A1c 12.0 H Estim Average Glucose 298 Calcium 9.3 Total Bilirubin 0.3 AST 9 ALT 9 Alkaline Phosphatase 97 C-Reactive Protein 6.20 H Total Protein 7.0 Albumin 3.1 L Globulin 3.9 H Albumin/Globulin Ratio 0.8 L A/P Narrative A/P Narrative: A: *Right third toe gangrene: *DM w/ neuropathy & Hyperglycemia: Uncontrolled, BG on admit 514 -A1c 12.0 *KAREN: has not been using cpap *HTN: *Anemia, chronic: *GERD: *Depression: * P: -IV abx, mrsa screen -insulin gtt -Dr. Humphries for amputation / wound care -Follow-up inflammatory markers -Hold BP meds for soft BP, restart as neededi -PT/OT -ppx: heparin / ppi Time Spent With Patient Time: Total time spent is greater than 50% in coordination of care (as documented) at patient's floor/unit and/or counseling patient:
[2022-03-15] MEDS ORDERED: POLYETHYLENE GLYCOL 3350 17 GM PACKET PO PRN (16:36)
[2022-03-15] MEDS ORDERED: SENNOSIDES 1 TABLET PO PRN (16:36)
[2022-03-15] MEDS ORDERED: HYDROcodone/APAP 5/325MG TABLET PO PRN (16:36)
[2022-03-15] MEDS ORDERED: ONDANSETRON 4 MG/2 ML VIAL IV PRN (16:36)
[2022-03-15] MEDS ORDERED: METOCLOPRAMIDE 10 MG/2 ML VIAL IV PRN (16:36)
[2022-03-15] MEDS ORDERED: ACETAMINOPHEN 325 MG TABLET PO PRN (16:36)
[2022-03-15] MEDS ORDERED: VANCOMYCIN PER PHARMACY IV SCH (16:36)
[2022-03-15] MEDS ORDERED: ENALAPRILAT 1.25 MG/ML VIAL IV PRN (16:36)
[2022-03-15] MEDS ORDERED: POTASSIUM CHLORIDE 20 MEQ TABLET PO PRN ×2 (16:36)
[2022-03-15] MEDS ORDERED: POTASSIUM CHLORIDE 40 MEQ in DEXTROSE 5% IN WATER 500 ML IV PRN (16:36)
[2022-03-15] MEDS ORDERED: 0.9 % SODIUM CHLORIDE 1,000 ML IV ONE (16:36)
[2022-03-15] MEDS ORDERED: IPRATROPIUM/ALBUTEROL 3 ML AMPUL.NEB NEB PRN (16:36)
[2022-03-15] MEDS ORDERED: MAGNESIUM SULFATE 2 GM/50 ML BAG IV PRN (16:36)
[2022-03-15] MEDS: cefTRIAXone 2 GM in DEXTROSE 5% IN WATER 50 ML IV SCH (17:05)
--- NOTE | 2022-03-15 18:17 | General Surgery Consult Note ---
HPI Data of Consult Consult date: 03/15/22 Requesting physician: Germain Wang Primary Care Provider: Viktor Cox DO Family Provider: I saw this gentleman in ER along with Herbert Blanca PA-C and subsequently after his admission in ICU along with Dick APARICIO. Discussed patient's condition with Dr. Wang, Hospitalist Physician. Patient admitted via ER with uncontrolled diabetes in context of trauma related RIGHT 3rd toe with CSSSI. Needs toe amputation. Consult Narrative Patient Information: Note initiated : 03/15/22 at 6:10 pm Service Date, if different from initiated Date: [] Patient: Gregory Garcia 52 y/o M admitted on 03/15/22 for Toe Infection. Chief Complaint: [] Chief complaint: Uncontrolled diabetes and deteriorating wound Rt 3rd toe Reason for consult: Wound care and surgery / toe amputation. cc:: CC: Germain Wang Integumentary Integumentary: Present as per HPI and wounds (Started as a wound after trivial trauma and deteriorated over past one week. Uncontrolled diabetes.) Additional comments: Needs stabilization, glycemic control, IV antibiotics toe amputation. PFSH PFSH All Active Problems Necrotic toes (Acute) Right hand weakness (Acute) KAREN (obstructive sleep apnea) (Acute) Medicare welcome exam (Acute) Cubital tunnel syndrome on right (Acute) COVID-19 (Acute) Opiate misuse (Acute) Chronic pain (Chronic) Cervical radiculopathy (Chronic) Chronic radicular lumbar pain (Acute) Exposure to chlamydia (Acute) Iron deficiency anemia (Acute) Diabetic nephropathy (Chronic) Hypokalemia (Acute) Diabetic ulcer of toe associated with diabetes mellitus due to underlying condition (Acute) DKA (diabetic ketoacidoses) (Acute) Wound infection (Acute) Chronic sinusitis (Chronic) Psoriasiform dermatitis (Acute) Polyarthralgia (Chronic) 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) History of tobacco use (Chronic) Sleep apnea (Chronic) Peripheral neuropathy (Chronic) Fatigue (Chronic) Arthritis (Chronic) Insomnia (Chronic) Hypertension, essential (Chronic) DMII (diabetes mellitus, type 2) (Chronic) Depression (Chronic) Daytime sleepiness (Chronic) Acid reflux (Chronic) Medical History Acid reflux Arthritis Cervical radiculopathy Chronic pain Daytime sleepiness Depression Diabetic nephropathy DMII (diabetes mellitus, type 2) Fatigue History of tobacco use Hypertension, essential Hypokalemia Insomnia Iron deficiency anemia Marijuana use in remission Medicare [facility] exam Peripheral neuropathy Sleep apnea Surgical History H/O oral surgery (~1989) for jaw fracture Family History Mother Primary cancer of bone marrow Hypertension, essential Grandfather Diabetes Paternal Social History marital status: single smoking status: Former smoker alcohol intake frequency: a few times a week substance use type: former substance user and marijuana MEDS/ALLERGIES Home Medications and Allergies Home Medications Medication Instructions Recorded Confirmed Type Accu-Chek 1 each FS ACHS #120 strips 02/01/17 03/15/22 Rx flash glucose scanning reader #1 ea 07/01/19 03/15/22 Rx (FreeStyle Avery 14 Day [place]) omeprazole 20 mg capsule,delayed 20 mg PO QDAY 03/31/20 03/15/22 History release pen needle, diabetic 31 gauge x #100 ea 09/14/20 03/15/22 Rx 5/16" (BD Ultra-Fine Short Pen Needle) pioglitazone 30 mg tablet 30 mg PO DAILY #90 tabs 10/27/20 03/15/22 Rx methocarbamol 750 mg tablet 1,500 mg PO BID PRN muscle spasm 06/07/21 03/15/22 Rx #120 tabs insulin glargine 100 unit/mL (3 See Rx Instructions .Route 10/25/21 03/15/22 Rx mL) subcutaneous pen (Basaglar .COMPLEX #15 mL KwikPen U-100 Insulin) amlodipine 5 mg tablet 5 mg PO DAILY #90 tabs 11/29/21 03/15/22 Rx flash glucose sensor (FreeStyle See Rx Instructions .Route 12/13/21 03/15/22 Rx Avery 14 Day Sensor kit) .COMPLEX #4 Kits lisinopril 20 mg tablet 20 mg PO DAILY #90 tabs 12/13/21 03/15/22 Rx sildenafil 100 mg tablet 100 mg PO QDAY PRN sexual activity 12/27/21 03/15/22 Rx #30 tabs metformin 1,000 mg tablet 1,000 mg PO BID #180 tabs 02/10/22 03/15/22 Rx pregabalin 150 mg capsule 150 mg PO BID #60 caps 03/01/22 03/15/22 Rx amitriptyline 100 mg tablet 1 tab PO HS PRN Sleep 03/15/22 03/15/22 History insulin lispro 100 unit/mL 30 unit subcut TIDAC 03/15/22 03/15/22 History subcutaneous pen (Humalog KwikPen (U-100) Insulin) lidocaine 5 % topical patch 3 patch topical QDAY PRN neck pain 03/15/22 03/15/22 History Allergies Allergy/AdvReac Type Severity Reaction Status Date / Time No Known Drug Allergies Allergy Verified 12/08/21 13:46 Physical Examination Vital Signs Vital signs: Temp Pulse Resp BP Pulse Ox O2 Del Method 97.7 F 68 18 102/66 94 03/15/22 16:19 03/15/22 18:01 03/15/22 18:01 03/15/22 18:01 03/15/22 18:01 03/15/22 16:14 General physical appearance General physical exam: well developed, well nourished, no distress and no pain Eyes Eye exam: PERRL and normal ocular movement ENT ENT exam: normal pinna, normal mucosa and no congestion Head Head exam IM: Present atraumatic and normocephalic Neck Neck exam: no masses, trachea midline and no venous distension Cardiovascular Cardiovascular exam IM: Present normal rate and rhythm Respiratory Respiratory exam: normal expansion and clear to auscultation Abdomen Abdomen: Present soft, non tender and bowel sounds Integumentary Integumentary: Present other (Crush injury with soft tissue necrosis and gangrene RIGHT 3rd toe. ) Neurologic Neurologic: Present other (Diabetes with periphreal neuropathy) Musculoskeletal Musculoskeletal: Present other (RIGHT 3rd toe skin and soft tissue necrosis demarcating around base of toe.) Psychiatric Psychiatric: Present oriented to time, oriented to person, oriented to place, speech is normal and memory intact Results Labs Result diagrams: 03/15/22 11:18 03/15/22 11:18 Labs: Abnormal lab results 03/15/22 03/15/22 Range/Units 11:18 11:18 RBC 4.08 L (4.63-6.08) M/mcL Hgb 12.0 L (13.7-17.5) g/dL Hct 36.6 L (40.1-51.0) % MPV 11.4 H (7.4-10.4) fL Immature Gran % (Auto) 0.6 H (0.0-0.5) % ESR 69 H (0-20) mm/hr Sodium 132 L (133-145) mmol/L Glucose 514 H* (70-105) mg/dL Hemoglobin A1c 12.0 H (4.0-6.0) % Hgb C-Reactive Protein 6.20 H (0.03-0.80) mg/dL Albumin 3.1 L (3.2-5.2) gm/dL Globulin 3.9 H (2.2-3.7) gm/dL Albumin/Globulin Ratio 0.8 L (1.0-2.3) Diabetes panel 03/15/22 Range/Units 11:18 Sodium 132 L (133-145) mmol/L Potassium 4.8 (3.3-5.1) mmol/L Chloride 97 (96-108) mmol/L Carbon Dioxide 25 (22-30) mmol/L BUN 19 (6-20) mg/dL Creatinine 0.9 (0.7-1.2) mg/dL Glucose 514 H* (70-105) mg/dL Hemoglobin A1c 12.0 H (4.0-6.0) % Hgb Calcium 9.3 (8.6-10.4) mg/dL AST 9 (<40) U/L ALT 9 (<40) U/L Alkaline Phosphatase 97 (39-117) U/L Total Protein 7.0 (5.9-8.4) gm/dL Albumin 3.1 L (3.2-5.2) gm/dL Calcium panel 03/15/22 Range/Units 11:18 Calcium 9.3 (8.6-10.4) mg/dL Albumin 3.1 L (3.2-5.2) gm/dL Pituitary panel 03/15/22 Range/Units 11:18 Sodium 132 L (133-145) mmol/L Potassium 4.8 (3.3-5.1) mmol/L Chloride 97 (96-108) mmol/L Carbon Dioxide 25 (22-30) mmol/L BUN 19 (6-20) mg/dL Creatinine 0.9 (0.7-1.2) mg/dL Glucose 514 H* (70-105) mg/dL Calcium 9.3 (8.6-10.4) mg/dL Adrenal panel 03/15/22 Range/Units 11:18 Sodium 132 L (133-145) mmol/L Potassium 4.8 (3.3-5.1) mmol/L Chloride 97 (96-108) mmol/L Carbon Dioxide 25 (22-30) mmol/L BUN 19 (6-20) mg/dL Creatinine 0.9 (0.7-1.2) mg/dL Glucose 514 H* (70-105) mg/dL Calcium 9.3 (8.6-10.4) mg/dL Total Bilirubin 0.3 (0.1-1.0) mg/dL AST 9 (<40) U/L ALT 9 (<40) U/L Alkaline Phosphatase 97 (39-117) U/L Total Protein 7.0 (5.9-8.4) gm/dL Albumin 3.1 L (3.2-5.2) gm/dL All other labs normal. A/P Narrative A/P Narrative: Assessment: Uncontrolled diabetes. H/O trauma Right 3rd toe . CSSSI necrosis RIGHT 3rd toe. Plan of Treatment: Plan: Needs RIGHT 3rd toe amputation. Will check and schedule. Spoke with patient about indication,R/B/C/A. He understands and agrees. Time Spent With Patient Time: Total time spent is greater than 50% in coordination of care (as documented) at patient's floor/unit and/or counseling patient: Total time spent with greater than 50% in coordination of care (as documented) at patient's floor/unit and/or counseling patient:: 50 - 70 minutes
[2022-03-15] MEDS ORDERED: INSULIN REGULAR, HUMAN 1 UNIT/0.01 ML UNIT ONE (19:13)
[2022-03-15] MEDS ORDERED: AMITRIPTYLINE 25 MG TABLET PO SCH (21:00)
[2022-03-15] MEDS: INSULIN GLARGINE, HUMAN 1 UNIT/0.01 ML SQ SCH (22:00)
[2022-03-15] MEDS: DOCUSATE SODIUM 100 MG CAPSULE PO SCH (22:01)
[2022-03-15] MEDS: HEPARIN 5,000 UNIT/ML VIAL SQ SCH (22:01)
[2022-03-15] MEDS: 0.9 % SODIUM CHLORIDE 10 ML SYRINGE IV SCH (22:01)
[2022-03-15] MEDS: PREGABALIN 150 MG CAPSULE PO SCH (22:05)
[2022-03-16] MEDS ORDERED: VANCOMYCIN 1,000 MG in 0.9 % SODIUM CHLORIDE 250 ML IV ONE
[2022-03-16] MEDS ORDERED: DEXTROSE 31 GM ORAL.SUSP PO PRN (00:32)
[2022-03-16] MEDS ORDERED: DEXTROSE 50% 50 ML VIAL IV PRN (00:32)
[2022-03-16] MEDS: INSULIN LISPRO 1 UNIT/0.01 ML UNIT SQ SCH ×6 (03:40→23:40)
[2022-03-16] MEDS: 0.9 % SODIUM CHLORIDE 10 ML SYRINGE IV SCH ×3 (04:50→20:52)
[2022-03-16 06:17] LABS: Basophils # (Auto) 0.05 K/mcL (0.00-0.30); Basophils % (Auto) 0.6 % (0.0-2.0); Eosinophils # (Auto) 0.27 K/mcL (0.00-0.70); Eosinophils % (Auto) 3.1 % (0.0-7.0); Hematocrit 32.1 % (40.1-51.0); Hemoglobin 10.6 g/dL (13.7-17.5); Lymphocytes # (Auto) 2.78 K/mcL (1.50-4.80); Lymphocytes % (Auto) 31.9 % (15.5-49.0); Mean Cell Volume 89.7 fL (80.0-100.0); Mean Platelet Volume 10.9 fL (7.4-10.4); Monocytes # (Auto) 0.48 K/mcL (0.10-0.90); Monocytes % (Auto) 5.5 % (1.0-12.0); Neutrophils % (Auto) 58.4 % (38.0-78.0); Platelet Count 229 K/mcL (140-440); RBC 3.58 M/mcL (4.63-6.08); WBC 8.7 K/mcL (4.5-11.0)
[2022-03-16 06:49] LABS: ALT/SGPT 6 U/L (<40); AST/SGOT 10 U/L (<40); Albumin 2.6 gm/dL (3.2-5.2); Albumin/Globulin Ratio 0.7 (1.0-2.3); Alkaline Phosphatase 54 U/L (39-117); Bilirubin,Direct < 0.2 mg/dL (0-0.3); Bilirubin,Total < 0.2 mg/dL (0.1-1.0); Blood Urea Nitrogen 16 mg/dL (6-20); Calcium 8.4 mg/dL (8.6-10.4); Carbon Dioxide 25 mmol/L (22-30); Chloride 105 mmol/L (96-108); Globulin 3.8 gm/dL (2.2-3.7); Glomerular Filtration Rate 107; Glucose 140 mg/dL (70-105); Lactate Dehydrogenase 134 U/L (135-225); Phosphorous 3.2 mg/dL (2.5-4.5); Triglycerides 58 mg/dL (<150); Uric Acid 5.1 mg/dL (2.5-8.0)
--- NOTE | 2022-03-16 07:37 | Internal Med Progress Note ---
SUBJECTIVE Subjective Patient information: Note initiated : 03/16/22 at 7:33 am Service Date, if different from initiated Date: [] Patient: Gregory Garcia 52 y/o M admitted on 03/15/22 for Toe Infection. Chief Complaint: [] Interval history: History of present illness: Mr. Garcia is a 52 year old M With diabetes neuropathy hypertension who injured his toe right third about a week and a half ago. Still has of subsequently developed erythema edema and now black looking at the distal portion. And some mild drainage. Patient was seen by Dr. Humphries who states the necrotic toe will need amputation. Patient is otherwise feeling well no new fevers or chills or new complaints. He did have an elevated CRP of 6.2 and elevated sed rate of 69. A1c is notable for level of 12. His glucose in the ER was 514. Patient states that his diabetic regimen consist of pioglitazone and metformin as well as long-acting insulin with 30 units in the morning and 80 units at night but he says that has been "barber" him. And so he only takes 30 units of long-acting at night. His short acting prescription is for 26 units with meals 3 times daily but he is only been taking 15 units 3 times daily. 03/16 No overnight event or new complaints. Patient now status post amputation of that toe. Review of Systems: denies headache/fever/chills/nausea/vomiting/chest or abdominal pain/cough/dyspnea/diarrhea. Otherwise see above. Constitutional Vitals: Vital Signs Temp Pulse Resp BP Pulse Ox O2 Del Method O2 Flow Rate 98.4 F 57 L 20 118/64 94 0 03/16/22 04:01 03/16/22 07:01 03/16/22 07:01 03/16/22 07:01 03/16/22 07:01 03/16/22 02:32 03/16/22 07:01 Period Temp Pulse Resp BP Sys/Dinh Pulse Ox O2 Del Method O2 Flow Rate Last 24 Hr 97.7 F-98.4 F 55-92 13-20 95-144/58-101 94-100 Room Air-Room Air 0-0 Intake and Output 03/15/22 03/16/22 03/16/22 21:59 05:59 13:59 Intake Total 660 1370 Output Total 500 Balance 660 870 Weight 81.692 kg 81.919 kg Intake & Output: Intake & Output 03/15/22 03/16/22 03/16/22 21:59 05:59 13:59 Intake Total 660 1370 Output Total 500 Balance 660 870 Weight 81.692 kg 81.919 kg Intake: IV 660 1250 Sodium Chloride 0.9% 1,000 ml @ 975 100 mls/hr IV .Q10H ONE Rx#: [id number] HumuLIN R 50 UNIT In Sodium 60 25 Chloride 0.9% 99.5 ml @ 8 UNIT/ HR 16 mls/hr IV DUR [facility] Rx#: [id number] Zosyn 3.375 gm In Dextrose 5% 50 in Water 50 ml @ 100 mls/hr IV ONCE ONE Rx#:[id number] Vancomycin 1,000 mg In Sodium 250 Chloride 0.9% 250 ml @ 250 mls/ hr IV ONCE ONE Rx#:[id number] Vancomycin 1,500 mg In Sodium 500 Chloride 0.9% 500 ml @ 333.3 mls/hr IV ONCE ONE Rx#: [id number] Rocephin 2 gm In Dextrose 5% in 50 Water 50 ml @ 100 mls/hr IV Q24H [facility] Rx#:[id number] Oral 120 Output: Void Amount 500 Other: Meal HS Snack Percent of Meal Consumed 50% Urine Appearance Clear Clear Urine Color Bright Yellow Bright Yellow Urine Odor Normal Normal Exam: General: Alert, Awake, No acute Distress Eyes/N/T: EOMI Head/Neck: neck supple, CV: RRR, No murmurs, Pulm: Clear b/l, no wheezing/rhonchi/rales Abd: soft, nontender, +BS x4 Ext: no clubbing/cyanosis/edema . Right foot in dressings and boot Neuro: Alert, no focal deficits, moves all extremities, Skin: warm/dry OBJ DATA Labs CBC & Chem 7: 03/16/22 04:52 03/16/22 04:52 Labs: Abnormal Lab Results 03/16/22 03/16/22 03/15/22 04:52 04:52 11:18 RBC 3.58 L Hgb 10.6 L Hct 32.1 L MPV 10.9 H Immature Gran % (Auto) ESR Sodium 132 L Glucose 140 H 514 H* Hemoglobin A1c 12.0 H Calcium 8.4 L Lactate Dehydrogenase 134 L C-Reactive Protein 6.20 H Albumin 2.6 L 3.1 L Globulin 3.8 H 3.9 H Albumin/Globulin Ratio 0.7 L 0.8 L 03/15/22 11:18 RBC 4.08 L Hgb 12.0 L Hct 36.6 L MPV 11.4 H Immature Gran % (Auto) 0.6 H ESR 69 H Sodium Glucose Hemoglobin A1c Calcium Lactate Dehydrogenase C-Reactive Protein Albumin Globulin Albumin/Globulin Ratio Meds: Medications Acetaminophen (Acetaminophen 325 Mg Tablet) 650 mg PO Q6HP PRN; Protocol PRN Reason: Per Pain Protocol/Fever > 101 Hydrocodone Bitart/Acetaminophen (Hydrocodone/Apap 5/325mg Tablet) 1 tab PO Q4HP PRN PRN Reason: PAIN LEVEL 3-6 Albuterol/Ipratropium (Ipratropium/Albuterol 3 Ml Ampul.Neb) 3 ml NEB Q4HP PRN PRN Reason: Shortness Of Breath Amitriptyline HCl (Amitriptyline 25 Mg Tablet) 100 mg PO HS [facility] Last Admin: 03/15/22 22:30 Dose: Not Given Dextrose (Dextrose 50% 50 Ml Vial) 0 ml IV UD PRN PRN Reason: Per Sliding Scale Diagnostic Test (Pha) (Accu-Chek 1 Each Strip) 1 each FS Q4 [facility] Last Admin: 03/16/22 03:35 Dose: 1 each Docusate Sodium (Docusate Sodium 100 Mg Capsule) 100 mg PO BID [facility] Last Admin: 03/15/22 22:01 Dose: Not Given Enalaprilat (Enalaprilat 1.25 Mg/Ml Vial) 0 mg IV Q2HP PRN PRN Reason: Hypertension Glucose (Dextrose 31 Gm Oral.Susp) 15 gm PO PRN PRN PRN Reason: Hypoglycemia Heparin Sodium (Porcine) (Heparin 5,000 Unit/Ml Vial) 5,000 unit SQ Q12 [facility] Last Admin: 03/15/22 22:01 Dose: 5,000 unit Potassium Chloride 40 meq/ (Dextrose) 520 mls @ 130 mls/hr IV UD PRN PRN Reason: Potassium < 3 Magnesium Sulfate (Magnesium Sulfate) 2 gm in 50 mls @ 50 mls/hr IV UD PRN PRN Reason: Magnesium </= 1.6 Ceftriaxone Sodium 2 gm/ (Dextrose) 50 mls @ 100 mls/hr IV Q24H [facility]; Protocol Last Infusion: 03/15/22 17:40 Dose: Infused Vancomycin HCl 1,500 mg/ (Sodium Chloride) 500 mls @ 333.3 mls/hr IV Q12H [facility] Insulin Glargine (Insulin Glargine, Human 1 Unit/0.01 Ml) 30 unit SQ HS [facility] Last Admin: 03/15/22 22:00 Dose: 30 unit Insulin Human Lispro (Insulin Lispro 1 Unit/0.01 Ml Unit) 0 unit SQ Q4 [facility]; Protocol Last Admin: 03/16/22 03:40 Dose: Not Given Lidocaine (Lidocaine Patch) 3 patch TOPICAL QDAY [facility] Methocarbamol (Methocarbamol 750 Mg Tablet) 1,500 mg PO BID PRN PRN Reason: muscle spasm Metoclopramide HCl (Metoclopramide 10 Mg/2 Ml Vial) 10 mg IV Q6HP PRN PRN Reason: Nausea And Vomiting Morphine Sulfate (Morphine 4 Mg/Ml Vial) 0 mg IV Q3HP PRN PRN Reason: Pain Omeprazole (Omeprazole 20 Mg Capsule) 20 mg PO QDAY [facility] Ondansetron HCl (Ondansetron 4 Mg/2 Ml Vial) 4 mg IV Q4HP PRN PRN Reason: Nausea And Vomiting Polyethylene Glycol (Polyethylene Glycol 3350 17 Gm Packet) 17 gm PO DAILYP PRN PRN Reason: Constipation Potassium Chloride (Potassium Chloride 20 Meq Tablet) 40 meq PO UD PRN PRN Reason: Potssium is 3-3.5 Potassium Chloride (Potassium Chloride 20 Meq Tablet) 40 meq PO UD PRN PRN Reason: Potassium < 3 Pregabalin (Pregabalin 150 Mg Capsule) 150 mg PO BID [facility] Last Admin: 03/15/22 22:05 Dose: 150 mg Senna (Sennosides 1 Tablet) 2 tab PO DAILYP PRN PRN Reason: Constipation Sodium Chloride (0.9 % Sodium Chloride 10 Ml Syringe) 10 ml IV Q8 [facility] Last Admin: 03/16/22 04:50 Dose: 10 ml Vancomycin HCl (Vancomycin Per Pharmacy) 1 order IV UD [facility]; Protocol A/P Narrative A/P Narrative: A: *Right third toe gangrene: s/p amp (03/16) *DM w/ neuropathy & Hyperglycemia(improved): Uncontrolled, BG on admit 514 -A1c 12.0 *KAREN: has not been using cpap *HTN: on norvasc/acei *Anemia, chronic: *GERD: *Depression: P: -IV abx, mrsa screen (+), pending WC -insulin gtt to SQ basal and ssi -Dr. Humphries for amputation / wound care -Follow-up inflammatory markers -Hold BP meds for soft BP, restart as needed -PT/OT -ppx: heparin / ppi Plan of Treatment: Plan: Needs RIGHT 3rd toe amputation. Will check and schedule. Spoke with patient about indication,R/B/C/A. He understands and agrees. Time Spent With Patient Time: Total time spent is greater than 50% in coordination of care (as documented) at patient's floor/unit and/or counseling patient: Total time spent with greater than 50% in coordination of care (as documented) at patient's floor/unit and/or counseling patient:: 25 - 35 minutes QUALITY VTE Deep Vein Thrombosis/Pulmonary Embolism Present on Admission: No
[2022-03-16] MEDS: DOCUSATE SODIUM 100 MG CAPSULE PO SCH ×2 (07:50→20:51)
[2022-03-16] MEDS ORDERED: LIDOCAINE PATCH TOPICAL PRN (07:57)
[2022-03-16] MEDS ORDERED: AMITRIPTYLINE 25 MG TABLET PO PRN (08:08)
[2022-03-16] MEDS: MUPIROCIN OINT 2% 22GM NARES SCH ×2 (08:46→20:48)
[2022-03-16] MEDS: HEPARIN 5,000 UNIT/ML VIAL SQ SCH ×2 (08:46→20:48)
[2022-03-16] MEDS: cefTRIAXone 2 GM in DEXTROSE 5% IN WATER 50 ML IV SCH ×2 (08:47→09:13)
[2022-03-16] MEDS: OMEPRAZOLE 20 MG CAPSULE PO SCH (08:47)
[2022-03-16] MEDS ORDERED: BUPIVACAINE 0.25% 50 ML VIAL IJ ONE (08:57)
[2022-03-16] MEDS ORDERED: amLODIPine 5 MG TABLET PO SCH (09:00)
[2022-03-16] MEDS ORDERED: AMITRIPTYLINE 25 MG TABLET PO SCH (09:00)
[2022-03-16] MEDS ORDERED: LIDOCAINE PATCH TOPICAL SCH (09:00)
[2022-03-16] MEDS ORDERED: KETAMINE 50 MG/ML Syringe (ANEST) IV ONE (09:15)
[2022-03-16] MEDS ORDERED: PROPOFOL 200 MG/20 ML VIAL IV ONE (09:15)
[2022-03-16] MEDS ORDERED: MIDAZOLAM HCL 10 MG/2 ML VIAL ONE (09:15)
[2022-03-16] MEDS ORDERED: fentaNYL 250 MCG/5 ML VIAL IV ONE (09:15)
[2022-03-16] MEDS: VANCOMYCIN 1,500 MG in 0.9 % SODIUM CHLORIDE 500 ML IV SCH ×2 (10:58→20:51)
[2022-03-16] MEDS: PREGABALIN 150 MG CAPSULE PO SCH ×2 (11:11→20:51)
--- NOTE | 2022-03-16 11:16 | General Surgery Procedure Note ---
Date of procedure: Note initiated : 03/16/22 at 11:07 am Service Date, if different from initiated Date: [] Pre-op diagnosis: Trauma, gangrene RIGHT 3rd toe. DFU under Right 1st toe Stage 3 Post-op diagnosis: same Procedure: RIGHT 3rd toe amputation thru MPJ. Debridement of DFU under RIGHT great toe and approximation of skin edges, Findings: Trauma wound, RIGHT great toe with soft tissue necrosis / gangrene DFU Stage 3 under RIGHT RIGHT great toe proximals skin crease. Anesthesia: local and conscious sedation Surgeon: Nino Lamar Estimated blood loss: 3 Pathology: other (Amputated toe. ) Description of procedure: Right foot 3rd toe amputation thru neck of metatarsal bone Debridement and approximation of wound edges DFU under Right 1st toe Condition: stable Disposition: PACU
--- NOTE | 2022-03-16 12:28 | Operative Note ---
DATE OF OPERATION: 03/16/2022 DATE OF PROCEDURE: 03/16/2022 PREOPERATIVE DIAGNOSES: 1. History of trauma, right foot THIRD toe. 2. History of diabetes with peripheral neuropathy and a stage III ulcer in the skin crease under right great toe MPJ area. POSTOPERATIVE DIAGNOSES: 1. History of trauma, right foot THIRD toe. 2. History of diabetes with peripheral neuropathy and a stage III ulcer in the skin crease under right great toe MPJ area. PROCEDURE: 1. Right third toe amputation through MPJ. 2. Debridement of the DFU under great toe and approximation of edges. SURGEON: Nino Lamar M.D. ANESTHESIA: Local with sedation. RES HABILITATION ASSISTANT: Cody Cardozo CRNA ESTIMATED BLOOD LOSS: Under 3 mL. INSTRUMENT COUNT: Count of swabs, instruments, and needles was reported to be correct. INDICATIONS: This patient was admitted via Emergency Room last evening. He had uncontrolled diabetes and was noted to have soft tissue edema, dry gangrene at the site of trauma over the third toe. The patient does not recall how this happened. He has a significant history of diabetic neuropathy and had undergone a left partial great toe amputation in the remote past. PROCEDURE NOTE IN DETAIL: After obtaining informed consent, patient was taken to the operating room. He was placed supine on the operating table. Timeout was called. Intravenous antibiotics were already ongoing. The right foot, heel, ankle and knee regions were widely cleaned, prepped, and draped in the standard fashion. We used a tourniquet on the proximal thigh site. It was inflated to 200 mmHg. Local anesthetic, 0.25% Marcaine without epinephrine was injected into the subcutaneous tissues in the interdigital spaces between the 1st and 2nd, and 2nd and 3rd toes and along the plantar aspect of the second metatarsal of the third MPJ. Incision was made with a #15 scalpel blade. Sharp dissection was carried out. The soft tissue attachments around the right third toe MPJ region were excised. The head of the metatarsal bone was dissected and delineated. We used an oscillating saw to transect neck of the metatarsal bone. Hemostasis was achieved with 2-0 [id number] sutures. The wound field was copiously irrigated with normal saline containing antibiotic solution. Deep space was obliterated with 2-0 Vicryl. Skin edges were approximated with everting sutures of 2-0 Monocryl and 2-0 Prolene interrupted. Absorbent gauze dressings applied, and procedure terminated. VD:hayden Job ID: [id number] Doc ID: [id number] Nino Lamar MD MTDYandel
--- NOTE | 2022-03-16 12:59 | EKG ---
[facility] Test Date: 2022-03-15 Pat Name: Gregory Garcia Department: ICU Room: 120D Gender: Male [employer]: : [id number] Requested By: Germain Wang Order Number: [id number] Reading MD: Alok Thomas D.O. Measurements Intervals Griffin Rate: 60 P: 0 NJ: 207 QRS: -44 QRSD: 138 T: 0 QT: 428 QTc: 428 Interpretive Statements Sinus rhythm Borderline prolonged NJ interval RBBB Left ventricular hypertrophy Electronically Signed On 03-16-2022 12:59:19 PDT by Alok Thomas D.O. /store/M0/[id number]
[2022-03-16] MEDS: METHOCARBAMOL 750 MG TABLET PO PRN (18:56)
[2022-03-16] MEDS: morphine 4 MG/ML VIAL IV PRN ×2 (18:56→20:48)
[2022-03-16] MEDS: INSULIN GLARGINE, HUMAN 1 UNIT/0.01 ML SQ SCH (21:03)
[2022-03-17] MEDS: INSULIN LISPRO 1 UNIT/0.01 ML UNIT SQ SCH ×6 (04:17→22:54)
[2022-03-17] MEDS: 0.9 % SODIUM CHLORIDE 10 ML SYRINGE IV SCH ×3 (04:18→22:26)
[2022-03-17] MEDS: METHOCARBAMOL 750 MG TABLET PO PRN ×2 (07:06→19:51)
[2022-03-17 07:27] LABS: Blood Urea Nitrogen 18 mg/dL (6-20); Calcium 8.5 mg/dL (8.6-10.4); Carbon Dioxide 26 mmol/L (22-30); Chloride 102 mmol/L (96-108); Glomerular Filtration Rate 114; Glucose 120 mg/dL (70-105)
--- NOTE | 2022-03-17 07:30 | Internal Med Progress Note ---
SUBJECTIVE Subjective Patient information: Note initiated : 03/17/22 at 7:24 am Service Date, if different from initiated Date: [] Patient: Gregory Garcia 52 y/o M admitted on 03/15/22 for Toe Infection. Chief Complaint: [] Interval history: History of present illness: Mr. Garcia is a 52 year old M With diabetes neuropathy hypertension who injured his toe right third about a week and a half ago. Still has of subsequently developed erythema edema and now black looking at the distal portion. And some mild drainage. Patient was seen by Dr. Humphries who states the necrotic toe will need amputation. Patient is otherwise feeling well no new fevers or chills or new complaints. He did have an elevated CRP of 6.2 and elevated sed rate of 69. A1c is notable for level of 12. His glucose in the ER was 514. Patient states that his diabetic regimen consist of pioglitazone and metformin as well as long-acting insulin with 30 units in the morning and 80 units at night but he says that has been "barber" him. And so he only takes 30 units of long-acting at night. His short acting prescription is for 26 units with meals 3 times daily but he is only been taking 15 units 3 times daily. 03/16 No overnight event or new complaints. Patient now status post amputation of that toe. 03/17 Patient has throbbing in his foot but otherwise no new complaints. Wound cultures with staph aureus preliminary. Awaiting final cultures. MRSA screen positive. Glucose better controlled. CRP improving. Review of Systems: denies headache/fever/chills/nausea/vomiting/chest or abdominal pain/cough/dyspnea/diarrhea. Otherwise see above. Constitutional Vitals: Vital Signs Temp Pulse Resp BP Pulse Ox O2 Del Method O2 Flow Rate 99.5 F H 64 22 126/73 93 0 03/17/22 04:21 03/16/22 22:30 03/17/22 04:21 03/17/22 04:21 03/17/22 04:21 03/17/22 04:21 03/16/22 07:01 Period Temp Pulse Resp BP Sys/Dinh Pulse Ox O2 Del Method O2 Flow Rate Last 24 Hr 97.7 F-99.5 F 48-64 13-22 96-144/61-94 91-100 Room Air-Room Air Intake and Output 03/16/22 03/17/22 03/17/22 21:59 05:59 13:59 Intake Total 240 900 Output Total 375 1150 350 Balance -135 -250 -350 Weight 81.238 kg Intake & Output: Intake & Output 03/16/22 03/17/22 03/17/22 21:59 05:59 13:59 Intake Total 240 900 Output Total 375 1150 350 Balance -135 -250 -350 Weight 81.238 kg Intake: IV 500 Vancomycin 1,500 mg In Sodium 500 Chloride 0.9% 500 ml @ 333.3 mls/hr IV Q12H [facility] Rx#: [id number] Oral 240 400 Output: Void Amount 375 1150 350 Other: Meal Lunch cottage cheese Percent of Meal Consumed 100% 100% Feeding Ability Independent Urine Appearance Clear Clear Clear Urine Color Yellow Bright Yellow Yellow Urine Odor Normal Normal Exam: General: Alert, Awake, No acute Distress Eyes/N/T: EOMI Head/Neck: neck supple, CV: RRR, No murmurs, Pulm: Clear b/l, no wheezing/rhonchi/rales Abd: soft, nontender, +BS x4 Ext: no clubbing/cyanosis/edema . Right foot in dressings and boot Neuro: Alert, no focal deficits, moves all extremities, Skin: warm/dry OBJ DATA Labs CBC & Chem 7: 03/16/22 04:52 03/17/22 05:56 Labs: Abnormal Lab Results 03/17/22 03/16/22 03/16/22 05:57 04:52 04:52 RBC 3.58 L Hgb 10.6 L Hct 32.1 L MPV 10.9 H Immature Gran % (Auto) ESR 56 H Sodium Glucose 140 H Hemoglobin A1c Calcium 8.4 L Lactate Dehydrogenase 134 L C-Reactive Protein Albumin 2.6 L Globulin 3.8 H Albumin/Globulin Ratio 0.7 L 03/15/22 03/15/22 11:18 11:18 RBC 4.08 L Hgb 12.0 L Hct 36.6 L MPV 11.4 H Immature Gran % (Auto) 0.6 H ESR 69 H Sodium 132 L Glucose 514 H* Hemoglobin A1c 12.0 H Calcium Lactate Dehydrogenase C-Reactive Protein 6.20 H Albumin 3.1 L Globulin 3.9 H Albumin/Globulin Ratio 0.8 L Meds: Medications Acetaminophen (Acetaminophen 325 Mg Tablet) 650 mg PO Q6HP PRN; Protocol PRN Reason: Per Pain Protocol/Fever > 101 Hydrocodone Bitart/Acetaminophen (Hydrocodone/Apap 5/325mg Tablet) 1 tab PO Q4HP PRN PRN Reason: PAIN LEVEL 3-6 Last Admin: 03/17/22 07:05 Dose: 1 tab Albuterol/Ipratropium (Ipratropium/Albuterol 3 Ml Ampul.Neb) 3 ml NEB Q4HP PRN PRN Reason: Shortness Of Breath Amitriptyline HCl (Amitriptyline 25 Mg Tablet) 100 mg PO HSP PRN PRN Reason: Sleep Amlodipine Besylate (Amlodipine 5 Mg Tablet) 2.5 mg PO DAILY [facility] Last Admin: 03/16/22 08:47 Dose: 2.5 mg Dextrose (Dextrose 50% 50 Ml Vial) 0 ml IV UD PRN PRN Reason: Per Sliding Scale Diagnostic Test (Pha) (Accu-Chek 1 Each Strip) 1 each FS Q4 [facility] Last Admin: 03/17/22 07:05 Dose: 1 each Docusate Sodium (Docusate Sodium 100 Mg Capsule) 100 mg PO BID [facility] Last Admin: 03/16/22 20:51 Dose: Not Given Enalaprilat (Enalaprilat 1.25 Mg/Ml Vial) 0 mg IV Q2HP PRN PRN Reason: Hypertension Glucose (Dextrose 31 Gm Oral.Susp) 15 gm PO PRN PRN PRN Reason: Hypoglycemia Heparin Sodium (Porcine) (Heparin 5,000 Unit/Ml Vial) 5,000 unit SQ Q12 [facility] Last Admin: 03/16/22 20:48 Dose: 5,000 unit Potassium Chloride 40 meq/ (Dextrose) 520 mls @ 130 mls/hr IV UD PRN PRN Reason: Potassium < 3 Magnesium Sulfate (Magnesium Sulfate) 2 gm in 50 mls @ 50 mls/hr IV UD PRN PRN Reason: Magnesium </= 1.6 Ceftriaxone Sodium 2 gm/ (Dextrose) 50 mls @ 100 mls/hr IV Q24H [facility]; Protocol Last Admin: 03/16/22 09:13 Dose: 100 mls/hr Vancomycin HCl 1,500 mg/ (Sodium Chloride) 500 mls @ 333.3 mls/hr IV Q12H [facility] Last Infusion: 03/16/22 22:30 Dose: Infused Insulin Glargine (Insulin Glargine, Human 1 Unit/0.01 Ml) 30 unit SQ HS [facility] Last Admin: 03/16/22 21:03 Dose: 30 unit Insulin Human Lispro (Insulin Lispro 1 Unit/0.01 Ml Unit) 0 unit SQ Q4 [facility]; Protocol Last Admin: 03/17/22 07:06 Dose: Not Given Lidocaine (Lidocaine Patch) 3 patch TOPICAL QDAY PRN PRN Reason: neck pain Methocarbamol (Methocarbamol 750 Mg Tablet) 1,500 mg PO BID PRN PRN Reason: muscle spasm Last Admin: 03/17/22 07:06 Dose: 1,500 mg Metoclopramide HCl (Metoclopramide 10 Mg/2 Ml Vial) 10 mg IV Q6HP PRN PRN Reason: Nausea And Vomiting Morphine Sulfate (Morphine 4 Mg/Ml Vial) 0 mg IV Q3HP PRN PRN Reason: Pain Last Admin: 03/16/22 20:48 Dose: 1 mg Mupirocin (Mupirocin Oint 2% 22gm) 1 dose NARES BID [facility] Last Admin: 03/16/22 20:48 Dose: 1 dose Omeprazole (Omeprazole 20 Mg Capsule) 20 mg PO QDAY [facility] Last Admin: 03/16/22 08:47 Dose: 20 mg Ondansetron HCl (Ondansetron 4 Mg/2 Ml Vial) 4 mg IV Q4HP PRN PRN Reason: Nausea And Vomiting Polyethylene Glycol (Polyethylene Glycol 3350 17 Gm Packet) 17 gm PO DAILYP PRN PRN Reason: Constipation Potassium Chloride (Potassium Chloride 20 Meq Tablet) 40 meq PO UD PRN PRN Reason: Potssium is 3-3.5 Potassium Chloride (Potassium Chloride 20 Meq Tablet) 40 meq PO UD PRN PRN Reason: Potassium < 3 Pregabalin (Pregabalin 150 Mg Capsule) 150 mg PO BID [facility] Last Admin: 03/16/22 20:51 Dose: 150 mg Senna (Sennosides 1 Tablet) 2 tab PO DAILYP PRN PRN Reason: Constipation Sodium Chloride (0.9 % Sodium Chloride 10 Ml Syringe) 10 ml IV Q8 [facility] Last Admin: 03/17/22 04:18 Dose: 10 ml Vancomycin HCl (Vancomycin Per Pharmacy) 1 order IV UD [facility]; Protocol A/P Narrative A/P Narrative: A: *Right third toe gangrene: s/p amp (03/16) -WC with Staph aureus *DM w/ neuropathy & Hyperglycemia(improved): Uncontrolled, BG on admit 514 -A1c 12.0 *KAREN: has not been using cpap *HTN: on norvasc/acei *Anemia, chronic: *GERD: *Depression: P: -IV abx, mrsa screen (+), pending WC -cont lantus 30qhs(titrate) and ssi -Dr. Humphries for amputation / wound care -CRP/esr improving -Held BP meds for soft BP initially, restart ACEI today -PT/OT -ppx: heparin / ppi Time Spent With Patient Time: Total time spent is greater than 50% in coordination of care (as documented) at patient's floor/unit and/or counseling patient: QUALITY VTE Deep Vein Thrombosis/Pulmonary Embolism Present on Admission: No
[2022-03-17] MEDS: PREGABALIN 150 MG CAPSULE PO SCH ×2 (07:52→22:27)
[2022-03-17] MEDS: MUPIROCIN OINT 2% 22GM NARES SCH ×2 (07:52→19:52)
[2022-03-17] MEDS: HEPARIN 5,000 UNIT/ML VIAL SQ SCH ×2 (07:52→19:53)
[2022-03-17] MEDS: OMEPRAZOLE 20 MG CAPSULE PO SCH (07:52)
[2022-03-17] MEDS: DOCUSATE SODIUM 100 MG CAPSULE PO SCH ×2 (07:54→19:51)
[2022-03-17] MEDS: morphine 4 MG/ML VIAL IV PRN (08:04)
[2022-03-17] MEDS ORDERED: amLODIPine 5 MG TABLET PO SCH (09:00)
[2022-03-17] MEDS ORDERED: LISINOPRIL 10 MG TABLET PO SCH (09:00)
[2022-03-17] MEDS: LISINOPRIL 20 MG TABLET PO SCH (09:01)
[2022-03-17] MEDS ORDERED: HYDROcodone/APAP 10/325MG TABLET PO PRN (09:45)
[2022-03-17] MEDS ORDERED: HYDROcodone/APAP 5/325MG TABLET PO PRN (09:55)
[2022-03-17] MEDS: VANCOMYCIN 1,500 MG in 0.9 % SODIUM CHLORIDE 500 ML IV SCH (11:04)
--- NOTE | 2022-03-17 11:07 | Discharge Summary ---
Discharge Provider Provider IMPORTANT FOLLOW-UP INFORMATION FOR PCP: Patient information: Note initiated : 03/17/22 at 11:06 am Service Date, if different from initiated Date: [] Patient: Gregory Garcia 52 y/o M admitted on 03/15/22 for Toe Infection. Chief Complaint: [] Date of admission: 03/15/22 16:14 Discharge date: 03/18/22 Primary care physician: Viktor Cox DO Consults: 03/15/22 Consult to Physician [CONS] Stat Comment: Consulting Provider: Nino Lamar Reason For Exam: Physician to Consult Consult to Physician [CONS] Stat Comment: Consulting Provider: Germain Wang Reason For Exam: Physician to Consult COURSE Hospital Course Hospital course: History of present illness: Mr. Garcia is a 52 year old M With diabetes neuropathy hypertension who injured his toe right third about a week and a half ago. Still has of subsequently developed erythema edema and now black looking at the distal portion. And some mild drainage. Patient was seen by Dr. Humphries who states the necrotic toe will need amputation. Patient is otherwise feeling well no new fevers or chills or new complaints. He did have an elevated CRP of 6.2 and elevated sed rate of 69. A1c is notable for level of 12. His glucose in the ER was 514. Patient states that his diabetic regimen consist of pioglitazone and metformin as well as long-acting insulin with 30 units in the morning and 80 units at night but he says that has been "barber" him. And so he only takes 30 units of long-acting at night. His short acting prescription is for 26 units with meals 3 times daily but he is only been taking 15 units 3 times daily. 03/16 No overnight event or new complaints. Patient now status post amputation of that toe. 03/17 Patient has throbbing in his foot but otherwise no new complaints. Wound cultures with staph aureus preliminary. Awaiting final cultures. MRSA screen positive. Glucose better controlled. CRP improving. A: *Right third toe gangrene: s/p amp (03/16) -WC with MSSA *DM w/ neuropathy & Hyperglycemia(improved): BG on admit 514 -A1c 12.0 *KAREN: has not been using cpap *HTN: on norvasc/acei *Anemia, chronic: *GERD: *Depression: P: -abx pending WC -. D / wound care Discharge diagnosis: Right third toe gangrene with infection Secondary discharge diagnosis: Diabetes with neuropathy and hyperglycemia obstructive sleep apnea pretension anemia GERD depression Time Spent with Patient Time attestation: Total time spent providing and/or coordinating discharge services: Time spent: Greater than 30 minutes EXAM Constitutional Vitals: Temp Pulse Resp BP Pulse Ox O2 Del Method O2 Flow Rate 98.2 F 86 22 156/87 92 0 03/17/22 08:40 03/17/22 08:40 03/17/22 08:40 03/17/22 08:40 03/17/22 08:40 03/17/22 08:40 03/16/22 07:01 Discharge Data Data Completed and Pending Labs on day of discharge: Labs from last 24 hours 03/17/22 03/17/22 03/17/22 09:05 05:57 05:56 ESR 56 H Sodium 137 Potassium 4.1 Chloride 102 Carbon Dioxide 26 Anion Gap 9.0 BUN 18 Creatinine 0.6 L GFR Calculation 114 Glucose 120 H Calcium 8.5 L C-Reactive Protein 1.90 H Vancomycin Trough 14.6 Preliminary micro results at discharge 03/15/22 16:06 Gram Stain - Preliminary Foot - Right Wound Culture - Preliminary Staphylococcus aureus Discharge Plan Patient/Caregiver Discharge Instructions Activity: increase activity as tolerated Diet: Consistent Carbohydrate Activity Restrictions/Additional Instructions: Wound Care to right 3rd toe amputation site and the base of the right great toe: Cleanse with normal saline. Apply Aquacel Ag to wound bed/suture line. Cover with 4x4 gauze. Protect fissure under left great toe with gauze 4x4. Secure all with kerlix and RAVI. Change 2 days per week; Next dressing change on Wednesday 03/21. Do not get dressing wet. No weight-bearing on right foot. Utilize knee pipe organ tuner and repairer. Prescriptions: New doxycycline hyclate 100 mg capsule 100 mg PO QDAY Qty: 14 0RF Continued (DME) FreeStyle Avery 14 Day Yale misc See Rx Instructions .ROUTE .MEDSUPPLY Qty: 1 0RF Rx Instructions: As directed (DME) pen needle, diabetic [BD Ultra-Fine Short Pen Needle] 31 gauge x 5/16" needle See Dose Instructions .ROUTE .MEDSUPPLY MDD twice daily Qty: 100 8RF Dose Instruction: As directed Rx Instructions: Use to inject Novolog and Lantus - up to 5 times daily pioglitazone 30 mg tablet 30 mg PO DAILY Qty: 90 1RF methocarbamol 750 mg tablet 1,500 mg PO BID PRN (Reason: muscle spasm) Qty: 120 5RF Basaglar KwikPen U-100 Insulin 100 unit/mL (3 mL) insulin pen See Rx Instructions .ROUTE .COMPLEX Qty: 15 0RF Dose Instruction: inject 30 units subcutaneously every morning and 80 units every evening daily Rx Instructions: inject 30 units subcutaneously every morning and 80 units every evening daily amlodipine 5 mg tablet 5 mg PO DAILY Qty: 90 1RF lisinopril 20 mg tablet 20 mg PO DAILY Qty: 90 1RF FreeStyle Avery 14 Day Sensor Kit See Rx Instructions .ROUTE .COMPLEX Qty: 4 5RF Dose Instruction: apply 1 SENSOR TO THE BACK OF UPPER ARM REMOVE AND REPLACE every 14 days use with DEVICE to MONITOR BLOOD SUGAR Rx Instructions: apply 1 SENSOR TO THE BACK OF UPPER ARM REMOVE AND REPLACE every 14 days use with DEVICE to MONITOR BLOOD SUGAR sildenafil 100 mg tablet 100 mg PO QDAY PRN (Reason: sexual activity) Qty: 30 3RF Rx Instructions: administer 30 minutes to 4 hours before activity metformin 1,000 mg tablet 1,000 mg PO BID Qty: 180 1RF pregabalin 150 mg capsule 150 mg PO BID Qty: 60 0RF Accu-Chek 1 EACH strip 1 each FS ACHS Qty: 120 0RF omeprazole 20 mg Capsule,Delayed Release(Dr/Ec) 20 mg PO QDAY lidocaine 5 % adhesive patch,medicated 3 patch topical QDAY PRN (Reason: neck pain) amitriptyline 100 mg tablet 1 tab PO HS PRN (Reason: Sleep) insulin lispro [Humalog KwikPen Insulin] 100 unit/mL insulin pen 30 unit subcut TIDAC Other Ambulatory Orders: [facility] (ONCE) Location: None Selected Ordered By: Nino Lamar Follow Up Plan Follow up with: Nino Lamar MD [Physician] - Viktor Cox DO [Primary Care Provider] - Patient Disposition: Home, Self-Care Prognosis: Fair Rehab Potential: Fair Overall status at discharge: patient is progressing back to baseline Discharge Orders: Discharge Order (Routine); Ordered 03/18/22 Ordered By: Germain Hilario Kanooth QUALITY VTE Deep Vein Thrombosis/Pulmonary Embolism Present on Admission: No
[2022-03-17] MEDS: HYDROcodone/APAP 10/325MG TABLET PO PRN ×3 (11:25→19:57)
--- NOTE | 2022-03-17 18:40 | General Surgery Progress Note ---
SUBJECTIVE Subjective Patient information: Note initiated : 03/17/22 at 6:38 pm Service Date, if different from initiated Date: [] Patient: Gregory Garcia 52 y/o M admitted on 03/15/22 for Toe Infection. Chief Complaint: [] Additional PMFSH (Level 3 Only): POD # 1. Saw patient along with Geo Weldon RN earlier this morning. Reviewed post operative progress an lab results. Constitutional Vitals: Vital Signs Temp Pulse Resp BP Pulse Ox O2 Del Method O2 Flow Rate 97.7 F 61 22 142/83 97 0 03/17/22 17:00 03/17/22 17:00 03/17/22 17:00 03/17/22 17:00 03/17/22 17:00 03/17/22 17:00 03/16/22 07:01 Period Temp Pulse Resp BP Sys/Dinh Pulse Ox O2 Del Method O2 Flow Rate Last 24 Hr 97.6 F-99.5 F 58-86 20-22 123-156/73-87 92-99 Room Air-Room Air Intake and Output 03/17/22 03/17/22 03/17/22 05:59 13:59 21:59 Intake Total 106 234 0816 Output Total 1150 350 Balance -255 085 4990 Intake & Output: Intake & Output 03/17/22 03/17/22 03/17/22 05:59 13:59 21:59 Intake Total 762 946 3617 Output Total 1150 350 Balance -780 413 9598 Intake: IV 500 500 Vancomycin 1,500 mg In Sodium 500 500 Chloride 0.9% 500 ml @ 333.3 mls/hr IV Q12H [facility] Rx#: [id number] Oral 400 1760 Output: Void Amount 1150 350 Other: Meal cottage cheese Lunch Percent of Meal Consumed 100% 100% Feeding Ability Independent Independent Urine Appearance Clear Clear Clear Urine Color Bright Yellow Yellow Yellow Urine Odor Normal Normal Normal # Voids 400 Exam: Afebrile, VSS. No changes ASH. RIGHT foot dressing CDI. NO strike thru staining of dressing. Reviewed lab results. Explained about need for NWB / offloading A/P Narrative A/P Narrative: Assessment; Satisfactory post surgical progress. Plan: Await Physical therapy input reg. NWB / offloading RLE Roll about scooter. Patient lives on ground level. Plan: Change post surgical dressing tomorrow. Discharge recommendation later. Time Spent With Patient Time: Total time spent is greater than 50% in coordination of care (as documented) at patient's floor/unit and/or counseling patient: Total time spent with greater than 50% in coordination of care (as documented) at patient's floor/unit and/or counseling patient:: 15 - 24 minutes
[2022-03-17] MEDS: INSULIN GLARGINE, HUMAN 1 UNIT/0.01 ML SQ SCH (19:52)
[2022-03-18] MEDS: HYDROcodone/APAP 10/325MG TABLET PO PRN ×2 (02:37→11:42)
[2022-03-18] MEDS: INSULIN LISPRO 1 UNIT/0.01 ML UNIT SQ SCH ×2 (04:40→08:34)
[2022-03-18] MEDS: 0.9 % SODIUM CHLORIDE 10 ML SYRINGE IV SCH (05:04)
--- NOTE | 2022-03-18 07:30 | Internal Med Progress Note ---
SUBJECTIVE Subjective Patient information: Note initiated : 03/18/22 at 7:27 am Service Date, if different from initiated Date: [] Patient: Gregory Gacria 52 y/o M admitted on 03/15/22 for Toe Infection. Chief Complaint: [] Interval history: History of present illness: Mr. Garcia is a 52 year old M With diabetes neuropathy hypertension who injured his toe right third about a week and a half ago. Still has of subsequently developed erythema edema and now black looking at the distal portion. And some mild drainage. Patient was seen by Dr. Humphries who states the necrotic toe will need amputation. Patient is otherwise feeling well no new fevers or chills or new complaints. He did have an elevated CRP of 6.2 and elevated sed rate of 69. A1c is notable for level of 12. His glucose in the ER was 514. Patient states that his diabetic regimen consist of pioglitazone and metformin as well as long-acting insulin with 30 units in the morning and 80 units at night but he says that has been "barber" him. And so he only takes 30 units of long-acting at night. His short acting prescription is for 26 units with meals 3 times daily but he is only been taking 15 units 3 times daily. 03/16 No overnight event or new complaints. Patient now status post amputation of that toe. 03/17 Patient has throbbing in his foot but otherwise no new complaints. Wound cultures with staph aureus preliminary. Awaiting final cultures. MRSA screen positive. Glucose better controlled. CRP improving. Review of Systems: denies headache/fever/chills/nausea/vomiting/chest or abdominal pain/cough/dyspnea/diarrhea. Otherwise see above. Constitutional Vitals: Vital Signs Temp Pulse Resp BP Pulse Ox O2 Del Method O2 Flow Rate 98.3 F 58 L 18 105/66 97 0 03/18/22 06:29 03/18/22 06:29 03/18/22 06:29 03/18/22 06:29 03/18/22 06:29 03/18/22 04:56 03/16/22 07:01 Period Temp Pulse Resp BP Sys/Dinh Pulse Ox O2 Del Method O2 Flow Rate Last 24 Hr 97.5 F-98.3 F 20-86 16-22 105-156/66-87 92-100 Room Air-Room Air Intake and Output 03/17/22 03/18/22 03/18/22 21:59 05:59 13:59 Intake Total 2720 400 Output Total 650 Balance 2720 -250 Weight 81.193 kg Intake & Output: Intake & Output 03/17/22 03/18/22 03/18/22 21:59 05:59 13:59 Intake Total 2720 400 Output Total 650 Balance 2720 -250 Weight 81.193 kg Intake: Oral 2720 400 Output: Void Amount 650 Other: Meal Dinner Percent of Meal Consumed 100% Feeding Ability Independent Urine Appearance Clear Urine Color Yellow Urine Odor Normal # Voids 400 Exam: General: Alert, Awake, No acute Distress Eyes/N/T: EOMI Head/Neck: neck supple, CV: RRR, No murmurs, Pulm: Clear b/l, no wheezing/rhonchi/rales Abd: soft, nontender, +BS x4 Ext: no clubbing/cyanosis/edema . Right foot in dressings and boot Neuro: Alert, no focal deficits, moves all extremities, Skin: warm/dry OBJ DATA Labs CBC & Chem 7: 03/16/22 04:52 03/17/22 05:56 Labs: Abnormal Lab Results 03/17/22 03/17/22 03/16/22 05:57 05:56 04:52 RBC Hgb Hct MPV Immature Gran % (Auto) ESR 56 H Sodium Creatinine 0.6 L Glucose 120 H 140 H Hemoglobin A1c Calcium 8.5 L 8.4 L Lactate Dehydrogenase 134 L C-Reactive Protein 1.90 H Albumin 2.6 L Globulin 3.8 H Albumin/Globulin Ratio 0.7 L 03/16/22 03/15/22 03/15/22 04:52 11:18 11:18 RBC 3.58 L 4.08 L Hgb 10.6 L 12.0 L Hct 32.1 L 36.6 L MPV 10.9 H 11.4 H Immature Gran % (Auto) 0.6 H ESR 69 H Sodium 132 L Creatinine Glucose 514 H* Hemoglobin A1c 12.0 H Calcium Lactate Dehydrogenase C-Reactive Protein 6.20 H Albumin 3.1 L Globulin 3.9 H Albumin/Globulin Ratio 0.8 L Meds: Medications Acetaminophen (Acetaminophen 325 Mg Tablet) 650 mg PO Q6HP PRN; Protocol PRN Reason: Per Pain Protocol/Fever > 101 Hydrocodone Bitart/Acetaminophen (Hydrocodone/Apap 10/325mg Tablet) 1 - 2 tab PO Q4HP PRN; Protocol PRN Reason: Per Pain Protocol Last Admin: 03/18/22 02:37 Dose: 2 tab Albuterol/Ipratropium (Ipratropium/Albuterol 3 Ml Ampul.Neb) 3 ml NEB Q4HP PRN PRN Reason: Shortness Of Breath Amitriptyline HCl (Amitriptyline 25 Mg Tablet) 100 mg PO HSP PRN PRN Reason: Sleep Last Admin: 03/17/22 22:24 Dose: 100 mg Amlodipine Besylate (Amlodipine 5 Mg Tablet) 2.5 mg PO DAILY [facility] Last Admin: 03/17/22 08:57 Dose: Not Given Dextrose (Dextrose 50% 50 Ml Vial) 0 ml IV UD PRN PRN Reason: Per Sliding Scale Diagnostic Test (Pha) (Accu-Chek 1 Each Strip) 1 each FS Q4 [facility] Last Admin: 03/18/22 04:54 Dose: 1 each Docusate Sodium (Docusate Sodium 100 Mg Capsule) 100 mg PO BID [facility] Last Admin: 03/17/22 19:51 Dose: 100 mg Enalaprilat (Enalaprilat 1.25 Mg/Ml Vial) 0 mg IV Q2HP PRN PRN Reason: Hypertension Glucose (Dextrose 31 Gm Oral.Susp) 15 gm PO PRN PRN PRN Reason: Hypoglycemia Heparin Sodium (Porcine) (Heparin 5,000 Unit/Ml Vial) 5,000 unit SQ Q12 [facility] Last Admin: 03/17/22 19:53 Dose: 5,000 unit Potassium Chloride 40 meq/ (Dextrose) 520 mls @ 130 mls/hr IV UD PRN PRN Reason: Potassium < 3 Magnesium Sulfate (Magnesium Sulfate) 2 gm in 50 mls @ 50 mls/hr IV UD PRN PRN Reason: Magnesium </= 1.6 Ceftriaxone Sodium 2 gm/ (Dextrose) 50 mls @ 100 mls/hr IV Q24H [facility]; Protocol Last Infusion: 03/16/22 09:45 Dose: Infused Insulin Glargine (Insulin Glargine, Human 1 Unit/0.01 Ml) 30 unit SQ HS [facility] Last Admin: 03/17/22 19:52 Dose: 30 unit Insulin Human Lispro (Insulin Lispro 1 Unit/0.01 Ml Unit) 0 unit SQ Q4 [facility]; Protocol Last Admin: 03/18/22 04:40 Dose: 6 units Lidocaine (Lidocaine Patch) 3 patch TOPICAL QDAY PRN PRN Reason: neck pain Lisinopril (Lisinopril 20 Mg Tablet) 20 mg PO DAILY [facility] Last Admin: 03/17/22 09:01 Dose: 10 mg Methocarbamol (Methocarbamol 750 Mg Tablet) 1,500 mg PO BID PRN PRN Reason: muscle spasm Last Admin: 03/17/22 19:51 Dose: 1,500 mg Metoclopramide HCl (Metoclopramide 10 Mg/2 Ml Vial) 10 mg IV Q6HP PRN PRN Reason: Nausea And Vomiting Morphine Sulfate (Morphine 4 Mg/Ml Vial) 0 mg IV Q3HP PRN PRN Reason: Pain Last Admin: 03/17/22 08:04 Dose: 2 mg Mupirocin (Mupirocin Oint 2% 22gm) 1 dose NARES BID [facility] Last Admin: 03/17/22 19:52 Dose: 1 dose Omeprazole (Omeprazole 20 Mg Capsule) 20 mg PO QDAY [facility] Last Admin: 03/17/22 07:52 Dose: 20 mg Ondansetron HCl (Ondansetron 4 Mg/2 Ml Vial) 4 mg IV Q4HP PRN PRN Reason: Nausea And Vomiting Polyethylene Glycol (Polyethylene Glycol 3350 17 Gm Packet) 17 gm PO DAILYP PRN PRN Reason: Constipation Potassium Chloride (Potassium Chloride 20 Meq Tablet) 40 meq PO UD PRN PRN Reason: Potssium is 3-3.5 Potassium Chloride (Potassium Chloride 20 Meq Tablet) 40 meq PO UD PRN PRN Reason: Potassium < 3 Pregabalin (Pregabalin 150 Mg Capsule) 150 mg PO BID [facility] Last Admin: 03/17/22 22:27 Dose: 150 mg Senna (Sennosides 1 Tablet) 2 tab PO DAILYP PRN PRN Reason: Constipation Sodium Chloride (0.9 % Sodium Chloride 10 Ml Syringe) 10 ml IV Q8 [facility] Last Admin: 03/18/22 05:04 Dose: 10 ml A/P Narrative A/P Narrative: A: *Right third toe gangrene: s/p amp (03/16) -WC with MSSA *DM w/ neuropathy & Hyperglycemia(improved): Uncontrolled, BG on admit 514 -A1c 12.0 *KAREN: has not been using cpap *HTN: on norvasc/acei *Anemia, chronic: *GERD: *Depression: P: -IV abx, mrsa screen (+), pending WC -cont lantus 15qam & 30qhs(titrate) and ssi -DrRoel Humphries for amputation / wound care -CRP/esr improving -Held BP meds for soft BP initially, restarted ACEI, hold norvasc -PT/OT -ppx: heparin / ppi Time Spent With Patient Time: Total time spent is greater than 50% in coordination of care (as documented) at patient's floor/unit and/or counseling patient: QUALITY VTE Deep Vein Thrombosis/Pulmonary Embolism Present on Admission: No
[2022-03-18] MEDS ORDERED: metFORMIN 500 MG TABLET PO SCH (08:00)
[2022-03-18] MEDS: LISINOPRIL 20 MG TABLET PO SCH (08:40)
[2022-03-18] MEDS: OMEPRAZOLE 20 MG CAPSULE PO SCH (08:40)
[2022-03-18] MEDS: HEPARIN 5,000 UNIT/ML VIAL SQ SCH (08:41)
[2022-03-18] MEDS: PREGABALIN 150 MG CAPSULE PO SCH (08:41)
[2022-03-18] MEDS: DOCUSATE SODIUM 100 MG CAPSULE PO SCH (08:41)
[2022-03-18] MEDS ORDERED: INSULIN GLARGINE, HUMAN 1 UNIT/0.01 ML SQ SCH (09:00)
[2022-03-18] MEDS: cefTRIAXone 2 GM in DEXTROSE 5% IN WATER 50 ML IV SCH (09:41)
[2022-03-18] MEDS: MUPIROCIN OINT 2% 22GM NARES SCH (09:42)
--- NOTE | 2022-03-18 12:22 | General Surgery Progress Note ---
SUBJECTIVE Subjective Patient information: Note initiated : 03/18/22 at 12:18 pm Service Date, if different from initiated Date: [] Patient: Gregory Garcia 52 y/o M admitted on 03/15/22 for Toe Infection. Chief Complaint: [] Additional PMFSH (Level 3 Only): 03/18/2022 POD # 2. Patient seen with Geo Weldon RN. Surgical wound sites examined. Constitutional Vitals: Vital Signs Temp Pulse Resp BP Pulse Ox O2 Del Method O2 Flow Rate 98.3 F 62 18 114/71 98 0 03/18/22 11:35 03/18/22 11:35 03/18/22 11:35 03/18/22 11:35 03/18/22 11:35 03/18/22 04:56 03/16/22 07:01 Period Temp Pulse Resp BP Sys/Dinh Pulse Ox O2 Del Method O2 Flow Rate Last 24 Hr 97.5 F-98.3 F 20-63 16-22 105-142/66-83 96-100 Room Air-Room Air Intake and Output 03/17/22 03/18/22 03/18/22 21:59 05:59 13:59 Intake Total 2720 400 530 Output Total 650 Balance 2720 -250 530 Weight 179 lb Intake & Output: Intake & Output 03/17/22 03/18/22 03/18/22 21:59 05:59 13:59 Intake Total 2720 400 530 Output Total 650 Balance 2720 -250 530 Weight 179 lb Intake: IV 50 Rocephin 2 gm In Dextrose 5% in 50 Water 50 ml @ 100 mls/hr IV Q24H [facility] Rx#:[id number] Oral 2720 400 480 Output: Void Amount 650 Other: Meal Dinner Breakfast Percent of Meal Consumed 100% 100% Feeding Ability Independent Independent Urine Appearance Clear Urine Color Yellow Urine Odor Normal # Voids 400 Exam: AVSS, VSS. ASH: No acute interval changes. labs reviewed. Tissue c/s MSSA Surgical sites are healing well. Patient is using roll about scooter. NO problems with off laoding. A/P Narrative A/P Narrative: Assessment: Satisfactory progress. OK to d/c home on PO antibiotics. Plan: F/u at wound care clinc for continuity of care. Time Spent With Patient Time: Total time spent is greater than 50% in coordination of care (as documented) at patient's floor/unit and/or counseling patient: Total time spent with greater than 50% in coordination of care (as documented) at patient's floor/unit and/or counseling patient:: 15 - 24 minutes
== END 2022-03-18 12:35 | disposition home or self-care (01) | DRG 256 ==
LOC: ED 10:18 → ICU 16:14 → MEDSUR 03-16 10:53
PROVIDERS: ADMIT Internal Medicine; ATTEND Internal Medicine

== ENCOUNTER 2023-11-06 16:49 | Inpatient (IN) ==
[2023-11-06] MEDS: HYDROcodone/APAP 5/325MG TABLET PO ONE (17:27)
[2023-11-06 18:46] LABS: Hematocrit 36.3 % (40.1-51.0); Hemoglobin 11.8 g/dL (13.7-17.5); Mean Cell Volume 89.9 fL (80.0-100.0); Mean Corpuscular HGB Conc 32.5 g/dL (31.0-36.0); Mean Platelet Volume 10.1 fL (8.8-12.5); Platelet Count 248 K/mcL (140-440); RBC 4.04 M/mcL (4.63-6.08); Red Cell Distribution Width 15.5 % (11.5-14.5); WBC 17.3 K/mcL (4.5-11.0)
[2023-11-06 19:07] LABS: ALT/SGPT 8 U/L (<40); AST/SGOT 18 U/L (<40); Albumin 3.9 gm/dL (3.2-5.2); Albumin/Globulin Ratio 1.1 (1.0-2.3); Alkaline Phosphatase 54 U/L (39-117); Bilirubin,Total 0.5 mg/dL (0.1-1.0); Blood Urea Nitrogen 48 mg/dL (6-20); C-Reactive Protein 8.05 mg/dL (0.03-0.80); Calcium 9.6 mg/dL (8.6-10.4); Carbon Dioxide 20 mmol/L (22-30); Chloride 102 mmol/L (96-108); Globulin 3.4 gm/dL (2.2-3.7); Glomerular Filtration Rate 51; Glucose 154 mg/dL (70-105)
[2023-11-06 19:13] LABS: Lymphocytes % 5 % (15-49); Monocytes % (Manual) 8 % (1-12); Platelet Estimate NORMAL (Normal); RBC Morphology NORMAL (Normal); Segmented Neutrophils % 87 % (38-78)
[2023-11-06] MEDS: ceFAZolin 1 GM VIAL IV ONE (19:38)
[2023-11-06] MEDS: DEXTROSE 5% IN WATER 100 ML IV ONE (19:40)
[2023-11-06] MEDS: DOXYCYCLINE 100 MG in DEXTROSE 5% IN WATER 100 ML IV ONE (19:40)
[2023-11-06] MEDS: VANCOMYCIN 1,500 MG in 0.9 % SODIUM CHLORIDE 500 ML IV ONE (19:56)
[2023-11-06] MEDS ORDERED: hydrALAZINE 20 MG/ML VIAL IV PRN (21:53)
[2023-11-06] MEDS ORDERED: IPRATROPIUM/ALBUTEROL 3 ML AMPUL.NEB NEB PRN (21:53)
[2023-11-06] MEDS ORDERED: DEXTROSE 50% 50 ML VIAL IV PRN (21:53)
[2023-11-06] MEDS ORDERED: ONDANSETRON 4 MG/2 ML VIAL IV PRN (21:53)
[2023-11-06] MEDS: VANCOMYCIN PER PHARMACY IV ONE (22:16)
[2023-11-06] MEDS: 0.9 % SODIUM CHLORIDE 1,000 ML IV SCH (22:55)
[2023-11-06] MEDS: 0.9 % SODIUM CHLORIDE 10 ML SYRINGE IV SCH (22:57)
[2023-11-06] MEDS: PIPERACILLIN SODIUM/TAZOBACTAM 3.375 GM in DEXTROSE 5% IN WATER 50 ML IV SCH (22:59)
[2023-11-06] MEDS: DOCUSATE SODIUM 100 MG CAPSULE PO SCH (22:59)
[2023-11-06] MEDS: SENNOSIDES 1 TABLET PO SCH (23:10)
[2023-11-06] MEDS: morphine 4 MG/ML VIAL ONE (23:11)
[2023-11-06] MEDS: morphine 4 MG/ML VIAL IV PRN (23:15)
[2023-11-06] MEDS: INSULIN LISPRO 1 UNIT/0.01 ML UNIT SQ ONE (23:16)
[2023-11-06] MEDS: FUROSEMIDE 40 MG/4 ML VIAL IV ONE (23:55)
[2023-11-06] MEDS: CALCIUM GLUCONATE 4.65 MEQ/10 ML VIAL IV ONE (23:56)
[2023-11-06] MEDS: HEPARIN 5,000 UNIT/ML VIAL SQ SCH (23:56)
[2023-11-07] MEDS: traZODone HCL 50 MG TABLET PO PRN
[2023-11-07] MEDS: INSULIN LISPRO 1 UNIT/0.01 ML UNIT SQ SCH (00:15)
[2023-11-07] MEDS: CALCIUM GLUCONATE 4.65 MEQ/10 ML VIAL ONE (00:24)
[2023-11-07] MEDS: traZODone HCL 50 MG TABLET ONE (00:25)
[2023-11-07] MEDS: HEPARIN 5,000 UNIT/ML VIAL ONE (00:25)
[2023-11-07] MEDS: FUROSEMIDE 40 MG/4 ML VIAL IV ONE (00:25)
[2023-11-07] MEDS: LACTATED RINGERS 500 ML IV SCH (00:40)
[2023-11-07] MEDS ORDERED: BACLOFEN 10 MG TABLET PO PRN (03:11)
[2023-11-07] MEDS: PREGABALIN 150 MG CAPSULE PO SCH (03:24)
[2023-11-07] MEDS: morphine 4 MG/ML VIAL ONE (05:37)
[2023-11-07] MEDS: PREGABALIN 150 MG CAPSULE PO ONE (05:37)
[2023-11-07 05:58] LABS: Basophils # (Auto) 0.02 K/mcL (0.00-0.30); Basophils % (Auto) 0.1 % (0.0-2.0); Eosinophils # (Auto) 0.15 K/mcL (0.00-0.70); Hematocrit 33.8 % (40.1-51.0); Hemoglobin 10.9 g/dL (13.7-17.5); Lymphocytes # (Auto) 1.72 K/mcL (1.50-4.80); Lymphocytes % (Auto) 11.6 % (15.5-49.0); Mean Cell Volume 91.1 fL (80.0-100.0); Mean Corpuscular HGB Conc 32.2 g/dL (31.0-36.0); Mean Platelet Volume 9.7 fL (8.8-12.5); Monocytes # (Auto) 1.24 K/mcL (0.10-0.90); Monocytes % (Auto) 8.4 % (1.0-12.0); Neutrophils % (Auto) 78.8 % (38.0-78.0); Platelet Count 246 K/mcL (140-440); RBC 3.71 M/mcL (4.63-6.08); Red Cell Distribution Width 15.5 % (11.5-14.5); WBC 14.8 K/mcL (4.5-11.0)
[2023-11-07 06:28] LABS: ALT/SGPT 5 U/L (<40); AST/SGOT 14 U/L (<40); Albumin 3.6 gm/dL (3.2-5.2); Albumin/Globulin Ratio 1.1 (1.0-2.3); Alkaline Phosphatase 50 U/L (39-117); Bilirubin,Total 0.4 mg/dL (0.1-1.0); Blood Urea Nitrogen 44 mg/dL (6-20); Calcium 9.1 mg/dL (8.6-10.4); Carbon Dioxide 22 mmol/L (22-30); Chloride 101 mmol/L (96-108); Globulin 3.3 gm/dL (2.2-3.7); Glomerular Filtration Rate 48; Glucose 191 mg/dL (70-105)
[2023-11-07] MEDS: PIPERACILLIN SODIUM/TAZOBACTAM 3.375 GM in 0.9 % SODIUM CHLORIDE 100 ML IV SCH (08:06)
[2023-11-07] MEDS: BACLOFEN 10 MG TABLET PO SCH (08:13)
[2023-11-07] MEDS ORDERED: VANCOMYCIN PER PHARMACY IV SCH (08:15)
[2023-11-07] MEDS ORDERED: LIDOCAINE 4% TOP PATCH TOPICAL PRN (10:42)
[2023-11-07] MEDS: OMEPRAZOLE 20 MG CAPSULE PO SCH (11:47)
[2023-11-07] MEDS: VANCOMYCIN 1,500 MG in 0.9 % SODIUM CHLORIDE 500 ML IV SCH (11:51)
[2023-11-07] MEDS ORDERED: PREGABALIN 150 MG CAPSULE PO SCH (15:00)
[2023-11-07] MEDS ORDERED: BACLOFEN 10 MG TABLET PO SCH (21:00)
[2023-11-07] MEDS: IBUPROFEN 200 MG TABLET PO SCH (21:36)
[2023-11-07] MEDS: INSULIN GLARGINE, HUMAN 1 UNIT/0.01 ML SQ SCH (21:51)
[2023-11-07] MEDS: AMITRIPTYLINE 25 MG TABLET PO SCH (23:29)
[2023-11-07] MEDS: ACETAMINOPHEN 325 MG TABLET PO PRN (23:45)
[2023-11-08] MEDS: ACETAMINOPHEN 1,000 MG/100 ML BAG IV PRN (01:21)
[2023-11-08] MEDS: ACETAMINOPHEN 1,000 MG/100 ML BAG IV ONE (01:36)
[2023-11-08 06:43] LABS: Basophils # (Auto) 0.05 K/mcL (0.00-0.30); Basophils % (Auto) 0.4 % (0.0-2.0); Eosinophils # (Auto) 0.24 K/mcL (0.00-0.70); Eosinophils % (Auto) 1.8 % (0.0-7.0); Hematocrit 31.6 % (40.1-51.0); Hemoglobin 9.9 g/dL (13.7-17.5); Lymphocytes # (Auto) 2.13 K/mcL (1.50-4.80); Lymphocytes % (Auto) 15.7 % (15.5-49.0); Mean Cell Volume 92.9 fL (80.0-100.0); Mean Corpuscular HGB Conc 31.3 g/dL (31.0-36.0); Mean Platelet Volume 10.3 fL (8.8-12.5); Monocytes # (Auto) 1.09 K/mcL (0.10-0.90); Platelet Count 223 K/mcL (140-440); Red Cell Distribution Width 15.2 % (11.5-14.5); WBC 13.6 K/mcL (4.5-11.0)
[2023-11-08 07:10] LABS: ALT/SGPT 6 U/L (<40); AST/SGOT 11 U/L (<40); Albumin 3.2 gm/dL (3.2-5.2); Albumin/Globulin Ratio 1.1 (1.0-2.3); Alkaline Phosphatase 48 U/L (39-117); Bilirubin,Total 0.2 mg/dL (0.1-1.0); Blood Urea Nitrogen 36 mg/dL (6-20); Calcium 8.2 mg/dL (8.6-10.4); Carbon Dioxide 20 mmol/L (22-30); Chloride 106 mmol/L (96-108); Globulin 2.9 gm/dL (2.2-3.7); Glomerular Filtration Rate 61; Glucose 222 mg/dL (70-105)
[2023-11-08] MEDS ORDERED: OMEPRAZOLE 20 MG CAPSULE PO SCH (07:30)
[2023-11-08] MEDS: PIOGLITAZONE 15 MG TABLET PO SCH (08:13)
[2023-11-08] MEDS: amLODIPine 5 MG TABLET PO SCH (08:13)
[2023-11-08] MEDS: OMEPRAZOLE 20 MG CAPSULE PO SCH (08:15)
[2023-11-08] MEDS ORDERED: IOPAMIDOL 100 ML BOTTLE IV ONE ×2 (12:37→19:14)
[2023-11-09 06:25] LABS: Basophils # (Auto) 0.04 K/mcL (0.00-0.30); Basophils % (Auto) 0.4 % (0.0-2.0); Eosinophils # (Auto) 0.28 K/mcL (0.00-0.70); Eosinophils % (Auto) 2.6 % (0.0-7.0); Hematocrit 31.4 % (40.1-51.0); Lymphocytes # (Auto) 1.23 K/mcL (1.50-4.80); Lymphocytes % (Auto) 11.3 % (15.5-49.0); Mean Cell Volume 91.3 fL (80.0-100.0); Mean Corpuscular HGB Conc 31.8 g/dL (31.0-36.0); Mean Platelet Volume 9.9 fL (8.8-12.5); Monocytes % (Auto) 7.4 % (1.0-12.0); Platelet Count 222 K/mcL (140-440); RBC 3.44 M/mcL (4.63-6.08); Red Cell Distribution Width 15.1 % (11.5-14.5); WBC 10.9 K/mcL (4.5-11.0)
[2023-11-09 07:03] LABS: ALT/SGPT 6 U/L (<40); AST/SGOT 11 U/L (<40); Albumin 3.3 gm/dL (3.2-5.2); Albumin/Globulin Ratio 1.1 (1.0-2.3); Alkaline Phosphatase 44 U/L (39-117); Bilirubin,Total 0.2 mg/dL (0.1-1.0); Blood Urea Nitrogen 25 mg/dL (6-20); Calcium 8.5 mg/dL (8.6-10.4); Carbon Dioxide 22 mmol/L (22-30); Chloride 107 mmol/L (96-108); Globulin 3.1 gm/dL (2.2-3.7); Glomerular Filtration Rate 75; Glucose 172 mg/dL (70-105)
[2023-11-09] MEDS: VANCOMYCIN 1,500 MG in 0.9 % SODIUM CHLORIDE 500 ML IV SCH (09:58)
[2023-11-10 06:23] LABS: Basophils # (Auto) 0.04 K/mcL (0.00-0.30); Basophils % (Auto) 0.4 % (0.0-2.0); Eosinophils # (Auto) 0.38 K/mcL (0.00-0.70); Eosinophils % (Auto) 3.8 % (0.0-7.0); Hematocrit 29.6 % (40.1-51.0); Hemoglobin 9.4 g/dL (13.7-17.5); Lymphocytes # (Auto) 1.29 K/mcL (1.50-4.80); Lymphocytes % (Auto) 12.8 % (15.5-49.0); Mean Cell Volume 91.4 fL (80.0-100.0); Mean Corpuscular HGB Conc 31.8 g/dL (31.0-36.0); Mean Platelet Volume 10.4 fL (8.8-12.5); Monocytes # (Auto) 0.69 K/mcL (0.10-0.90); Monocytes % (Auto) 6.9 % (1.0-12.0); Neutrophils % (Auto) 75.9 % (38.0-78.0); Platelet Count 225 K/mcL (140-440); RBC 3.24 M/mcL (4.63-6.08); Red Cell Distribution Width 15.1 % (11.5-14.5); WBC 10.1 K/mcL (4.5-11.0)
[2023-11-10 06:44] LABS: ALT/SGPT 165 U/L (<40); AST/SGOT 56 U/L (<40); Albumin 3.2 gm/dL (3.2-5.2); Albumin/Globulin Ratio 1.3 (1.0-2.3); Alkaline Phosphatase 165 U/L (39-117); Blood Urea Nitrogen 62 mg/dL (6-20); Calcium 8.7 mg/dL (8.6-10.4); Carbon Dioxide 24 mmol/L (22-30); Chloride 101 mmol/L (96-108); Globulin 2.4 gm/dL (2.2-3.7); Glomerular Filtration Rate 26; Glucose 101 mg/dL (70-105)
[2023-11-10 10:34] LABS: Hemoglobin A1C 8.8 % Hgb (4.0-6.0)
[2023-11-10 10:57] LABS: Appearance,Urine Clear (Clear); Bacteria,Urine Rare /hpf (0); Bilirubin,Urine Negative (Negative); Color,Urine Yellow; Culture Indicated,Urine Yes; Glucose,Urine (UA) Negative (Negative); Ketones,Urine Negative (Negative); Leukocyte Esterase,Urine Negative /uL (Negative); Nitrate,Urine Negative (Negative); PH,Urine 5.5 (5.0-9.0); Protein,Urine 100 mg/dL (Negative); Specific Gravity,Urine 1.025 (1.000-1.035); Urine Blood Negative ery/mcL (Negative); Urine RBC 0 /hpf (0-3); Urine Squamous Epithelial Cell 2 /hpf (0-4); Urine WBC 0 /hpf (0-4); Urobilinogen,Urine Normal
[2023-11-10] MEDS: DEXTROSE 31 GM ORAL.SUSP PO PRN (11:47)
[2023-11-10] MEDS ORDERED: ROPIVACAINE HCL/PF 30 ML VIAL IJ ONE (15:08)
[2023-11-10] MEDS ORDERED: ONDANSETRON 4 MG/2 ML VIAL ONE (15:08)
[2023-11-10] MEDS ORDERED: PROPOFOL 200 MG/20 ML VIAL IV ONE (15:08)
[2023-11-10] MEDS ORDERED: LIDOCAINE 2% PF 5 ML VIAL ONE (15:08)
[2023-11-10] MEDS: oxyCODONE IR 5 MG TABLET PO PRN (17:08)
[2023-11-10] MEDS: 0.9 % SODIUM CHLORIDE 10 ML SYRINGE IV SCH (20:40)
[2023-11-10] MEDS: ceFAZolin 1 GM VIAL IV SCH (22:53)
[2023-11-11 06:21] LABS: Basophils # (Auto) 0.03 K/mcL (0.00-0.30); Basophils % (Auto) 0.4 % (0.0-2.0); Eosinophils # (Auto) 0.43 K/mcL (0.00-0.70); Eosinophils % (Auto) 5.5 % (0.0-7.0); Hematocrit 30.2 % (40.1-51.0); Hemoglobin 9.4 g/dL (13.7-17.5); Lymphocytes # (Auto) 1.67 K/mcL (1.50-4.80); Lymphocytes % (Auto) 21.3 % (15.5-49.0); Mean Cell Volume 93.8 fL (80.0-100.0); Mean Corpuscular HGB Conc 31.1 g/dL (31.0-36.0); Mean Platelet Volume 10.5 fL (8.8-12.5); Monocytes % (Auto) 7.7 % (1.0-12.0); Neutrophils % (Auto) 64.8 % (38.0-78.0); Platelet Count 238 K/mcL (140-440); RBC 3.22 M/mcL (4.63-6.08); Red Cell Distribution Width 15.2 % (11.5-14.5); WBC 7.8 K/mcL (4.5-11.0)
[2023-11-11 06:57] LABS: ALT/SGPT 10 U/L (<40); AST/SGOT 22 U/L (<40); Albumin 3.2 gm/dL (3.2-5.2); Albumin/Globulin Ratio 0.9 (1.0-2.3); Alkaline Phosphatase 61 U/L (39-117); Bilirubin,Total < 0.2 mg/dL (0.1-1.0); Blood Urea Nitrogen 21 mg/dL (6-20); Calcium 8.4 mg/dL (8.6-10.4); Carbon Dioxide 21 mmol/L (22-30); Chloride 104 mmol/L (96-108); Globulin 3.6 gm/dL (2.2-3.7); Glomerular Filtration Rate 67; Glucose 264 mg/dL (70-105)
[2023-11-11] MEDS ORDERED: 0.9 % SODIUM CHLORIDE 10 ML SYRINGE IV PRN (11:08)
[2023-11-11] MEDS: 0.9 % SODIUM CHLORIDE 10 ML SYRINGE IV SCH (22:15)
[2023-11-12 06:15] LABS: Basophils # (Auto) 0.04 K/mcL (0.00-0.30); Basophils % (Auto) 0.4 % (0.0-2.0); Eosinophils # (Auto) 0.48 K/mcL (0.00-0.70); Eosinophils % (Auto) 5.2 % (0.0-7.0); Hemoglobin 8.7 g/dL (13.7-17.5); Lymphocytes # (Auto) 1.96 K/mcL (1.50-4.80); Lymphocytes % (Auto) 21.4 % (15.5-49.0); Mean Cell Volume 93.6 fL (80.0-100.0); Mean Corpuscular HGB Conc 31.1 g/dL (31.0-36.0); Mean Platelet Volume 10.3 fL (8.8-12.5); Monocytes # (Auto) 0.73 K/mcL (0.10-0.90); Neutrophils % (Auto) 64.7 % (38.0-78.0); Platelet Count 212 K/mcL (140-440); RBC 2.99 M/mcL (4.63-6.08); Red Cell Distribution Width 14.9 % (11.5-14.5); WBC 9.2 K/mcL (4.5-11.0)
[2023-11-12 06:51] LABS: ALT/SGPT 7 U/L (<40); AST/SGOT 21 U/L (<40); Albumin/Globulin Ratio 0.9 (1.0-2.3); Alkaline Phosphatase 53 U/L (39-117); Bilirubin,Total < 0.2 mg/dL (0.1-1.0); Blood Urea Nitrogen 23 mg/dL (6-20); Calcium 8.4 mg/dL (8.6-10.4); Carbon Dioxide 23 mmol/L (22-30); Chloride 103 mmol/L (96-108); Globulin 3.2 gm/dL (2.2-3.7); Glomerular Filtration Rate 67; Glucose 306 mg/dL (70-105)
[2023-11-12] MEDS: ENOXAPARIN 40 MG/0.4 ML SYRINGE SQ SCH (08:23)
[2023-11-12] MEDS ORDERED: hydrALAZINE 20 MG/ML VIAL IV PRN (13:26)
[2023-11-12] MEDS: INSULIN GLARGINE, HUMAN 1 UNIT/0.01 ML SQ SCH (21:07)
[2023-11-13 06:23] LABS: Basophils # (Auto) 0.05 K/mcL (0.00-0.30); Basophils % (Auto) 0.6 % (0.0-2.0); Eosinophils # (Auto) 0.53 K/mcL (0.00-0.70); Eosinophils % (Auto) 6.6 % (0.0-7.0); Hematocrit 29.4 % (40.1-51.0); Hemoglobin 9.2 g/dL (13.7-17.5); Lymphocytes # (Auto) 1.83 K/mcL (1.50-4.80); Lymphocytes % (Auto) 22.9 % (15.5-49.0); Mean Cell Volume 93.6 fL (80.0-100.0); Mean Corpuscular HGB Conc 31.3 g/dL (31.0-36.0); Mean Platelet Volume 10.3 fL (8.8-12.5); Monocytes # (Auto) 0.59 K/mcL (0.10-0.90); Monocytes % (Auto) 7.4 % (1.0-12.0); Neutrophils % (Auto) 61.9 % (38.0-78.0); Platelet Count 218 K/mcL (140-440); RBC 3.14 M/mcL (4.63-6.08); Red Cell Distribution Width 14.9 % (11.5-14.5)
[2023-11-13 06:34] LABS: ALT/SGPT 10 U/L (<40); AST/SGOT 25 U/L (<40); Albumin 3.2 gm/dL (3.2-5.2); Albumin/Globulin Ratio 0.9 (1.0-2.3); Alkaline Phosphatase 56 U/L (39-117); Bilirubin,Direct < 0.2 mg/dL (0-0.3); Bilirubin,Total 0.2 mg/dL (0.1-1.0); Blood Urea Nitrogen 21 mg/dL (6-20); Calcium 8.7 mg/dL (8.6-10.4); Carbon Dioxide 24 mmol/L (22-30); Chloride 104 mmol/L (96-108); Globulin 3.5 gm/dL (2.2-3.7); Glomerular Filtration Rate 75; Glucose 209 mg/dL (70-105); Lactate Dehydrogenase 226 U/L (135-225); Phosphorous 3.2 mg/dL (2.5-4.5); Triglycerides 40 mg/dL (<150); Uric Acid 4.2 mg/dL (2.5-8.0)
[2023-11-13] MEDS: SODIUM POLYSTYRENE SULFONATE 15 GM/60 ML SUSPENSION PO SCH (08:41)
[2023-11-13] MEDS: INSULIN GLARGINE, HUMAN 1 UNIT/0.01 ML SQ SCH ×2 (08:45→21:56)
[2023-11-13] MEDS ORDERED: INSULIN GLARGINE, HUMAN 1 UNIT/0.01 ML SQ SCH (09:00)
[2023-11-13] MEDS: FUROSEMIDE 40 MG/4 ML VIAL IV SCH (12:04)
[2023-11-14 07:24] LABS: ALT/SGPT 12 U/L (<40); AST/SGOT 21 U/L (<40); Albumin 3.3 gm/dL (3.2-5.2); Albumin/Globulin Ratio 0.9 (1.0-2.3); Alkaline Phosphatase 68 U/L (39-117); Bilirubin,Direct < 0.2 mg/dL (0-0.3); Bilirubin,Total 0.3 mg/dL (0.1-1.0); Blood Urea Nitrogen 21 mg/dL (6-20); Calcium 8.7 mg/dL (8.6-10.4); Carbon Dioxide 27 mmol/L (22-30); Chloride 101 mmol/L (96-108); Globulin 3.5 gm/dL (2.2-3.7); Glomerular Filtration Rate 75; Glucose 285 mg/dL (70-105); Lactate Dehydrogenase 240 U/L (135-225); Phosphorous 2.8 mg/dL (2.5-4.5); Triglycerides 111 mg/dL (<150); Uric Acid 4.3 mg/dL (2.5-8.0)
[2023-11-14] MEDS ORDERED: [UNRECOGNIZED DRUG - OTHER] SUB-Q SCH (09:00)
[2023-11-14] MEDS: FUROSEMIDE 40 MG/4 ML VIAL IV SCH (10:10)
[2023-11-14] MEDS ORDERED: INSULIN GLARGINE, HUMAN 1 UNIT/0.01 ML SQ SCH (21:00)
== END 2023-11-14 11:45 | DRG 623 ==
LOC: ED 16:49 → MEDSUR 21:30
PROVIDERS: ADMIT Internal Medicine; ATTEND Internal Medicine